=== PATIENT | male | born 1955 | race African-American/Black ===

== ENCOUNTER 2021-10-02 07:18 | Inpatient (IN) ==
--- NOTE | 2021-10-02 07:41 | DR.SOBA ---
HPI Time Seen Time Seen by Provider: 10/02/21 07:39 Primary Care Physician Primary Care Physician: KRISTEN WINSTON Complaints Chief Complaint Doctors Comments: 66 y/o male presents for evaluation. Having shortness of breath over the past week. Worse with laying down. Has a dry cough. Having chest pain across the anterior chest, off/on. Denies swelling of the legs. No h/o CAD, CHF, COPD. + smokes 12 PPD. Not around anyone with Covid he knows about. Chief Complaint:: PT C/O 1 WEEK HISTORY OF SHORTNESS OF BREATH WITH INTERMITTENT NONPRODUCTIVE COUGH. DENIES FEVER. COVID-19 Coronavirus risk:travel/contact w/high risk person: No Has patient experienced Coronavirus symptoms: No Reviewed Nurses Notes Reviewed: Yes Source History Provided: Patient Mode of Arrival Mode of Arrival: Ambulatory Timing Onset of Chief Complaint: 09/25/21 PMH PMH Past Medical History: Yes Past Medical History: Arthritis, Asthma and Hypertension Past Surgical History: Yes Surgical History: Ortho Surgery Past Surgical History Comment: RIGHT WRIST SURGERY, RIGHT HIP SURGERY Family History History of Family Medical Conditions: No Social History Does patient currently use any type of tobacco product: Yes Have you used tobacco products in the last 12 months: Yes Type of Tobacco Use: Cigarettes Does any household member use tobacco: No Alcohol Use: DAILY Do you use any recreational Drugs:: No Lives With: Family Lives Where: Home Travel Risk Coronavirus risk:travel/contact w/high risk person: No Has patient experienced Coronavirus symptoms: No Infectious screening In the last 2 months have you had wt loss of >10#?: NO Have you had fever, night sweats or hemotysis?: No Have you traveled outside the country in the last 6 months?: No Isolation: Standard ROS Review of Systems Constitutional: No Symptoms Reported Eyes: No Symptoms Reported ENTM: No Symptoms Reported Respiratoy: Non-Productive Cough and Short of Breath Cardiovascular: Chest Pain Gastrointestinal/Abdominal: No Symptoms Reported Genitourinary: No Symptoms Reported Neurological: No Symptoms Reported Musculoskeletal: No Symptoms Reported Integumentary: No Symptoms Reported Hematologic/Lymphatic: No Symptoms Reported All Other Systems: Reviewed and Negative PE Vital Signs Vitals: Temperature 98.0 F Pulse Rate 60 Respiratory Rate 18 Blood Pressure [Left Arm] 159/88 Blood Pressure 138/74 O2 Sat by Pulse Oximetry 100 General General Appearance: Alert and In No Apparent Distress Eyes Eye exam: PERRL and EOMI ENT ENT Exam: Normal Oropharynx and Mucous Membranes Moist Neck Neck Exam: Normal Inspection and Full ROM Respiratory Respiratory Exam: Normal Lung Sounds Bilat; negative Accessory Muscle Use or Respiratory Distress Cardiovascular Cardiovascular Exam: Regular Rate, Normal Rhythm and Normal Heart Sounds Abdominal Exam Abdominal Exam: Soft; negative Tenderness Extremities Extremities Exam: Normal Inspection and Full ROM; negative Edema Neurologic Neurological Exam: Alert, Oriented X3 and CN II-XII Intact; negative Motor Sensory Deficit MDM Differential Diagnosis Differential Diagnosis: CHF, COPD, Mycardial Infarction, Pneumonia and Other (Covid) COURSE Treatment Treatment: 66 y/o male with cough, orthopnea, chest pain x past week. W/u initiated. Pt will be signed over to my relief MD, Dr Coburn. EKG - normal. CXR - + significant R sided pneumothorax. Will consult surgery, Dr Nolasco, for chest tube. 0810 - pt informed of pneumothorax, told he needs a chest tube. PT states he had one, didn't work ...!! Was at [facility] past 2 days, lifts shirt, has a fresh wound, remnants of adhesive tape. States he left there to get some different help. ROR Labs Reviewed Result Diagrams: 10/03/21 05:14 10/03/21 05:14 Laboratory: WBC 3.9 X10^3/uL (3.6-10.0) 10/02/21 07:55 RBC 4.12 X10^6/uL (4.7-6.0) L 10/02/21 07:55 Hgb 11.9 g/dL (13.5-18.0) L 10/02/21 07:55 Hct 35.5 % (42.0-54.0) L 10/02/21 07:55 MCV 86.2 fL (80.0-100.0) 10/02/21 07:55 MCH 28.9 pg (27.0-34.0) 10/02/21 07:55 MCHC 33.5 g/dL (33.0-35.0) 10/02/21 07:55 RDW 13.4 % (11.6-16.5) 10/02/21 07:55 Plt Count 225 X10^3/uL (150.0-450.0) 10/02/21 07:55 MPV 8.4 fL (7.4-11.0) 10/02/21 07:55 Neut % (Auto) 60.9 % (42.0-75.0) 10/02/21 07:55 Lymph % (Auto) 18.8 % (21.0-51.0) L 10/02/21 07:55 [place] % (Auto) 12.8 % (0.0-13.0) 10/02/21 07:55 Eos % (Auto) 6.5 % (0.9-2.9) H 10/02/21 07:55 Baso % (Auto) 1.0 % (0.2-1.0) 10/02/21 07:55 Neut # (Auto) 2.4 x10^3/uL (2.2-4.8) 10/02/21 07:55 Lymph # (Auto) 0.7 X10^3/uL (1.3-2.9) L 10/02/21 07:55 [place] # (Auto) 0.5 x10^3/uL (0.3-0.8) 10/02/21 07:55 Eos # (Auto) 0.3 x10^3/uL (0.0-0.2) H 10/02/21 07:55 Baso # (Auto) 0.0 X10^3/uL (0.0-0.1) 10/02/21 07:55 Absolute Nucleated RBC 0.1 /100WBC 10/02/21 07:55 Sodium 141 mmol/L (136-145) 10/02/21 07:55 Corrected Sodium TNP 10/02/21 07:55 Potassium 4.2 mmol/L (3.5-5.1) 10/02/21 07:55 Chloride 103 mmol/L (98-107) 10/02/21 07:55 Carbon Dioxide 29.5 mmol/L (21-32) 10/02/21 07:55 BUN 13 mg/dL (7-18) 10/02/21 07:55 Creatinine 1.20 mg/dL (0.70-1.30) 10/02/21 07:55 Est GFR (MDRD) Af Amer > 60 (>60) 10/02/21 07:55 Est GFR (MDRD) Non-Af > 60 (>60) 10/02/21 07:55 Glucose 94 mg/dL (65-99) 10/02/21 07:55 Calcium 8.2 mg/dL (8.5-10.1) L 10/02/21 07:55 Corrected Calcium 8.9 mg/dL (8.5-10.1) 10/02/21 07:55 Total Bilirubin 0.30 mg/dL (0.2-1.0) 10/02/21 07:55 AST 18 Units/L (15-37) 10/02/21 07:55 ALT 15 Units/L (12-78) 10/02/21 07:55 Alkaline Phosphatase 62 Units/L (46-116) 10/02/21 07:55 Creatine Kinase 173 Units/L (39-308) 10/02/21 07:55 Troponin I High Sens 20.6 ng/L (4.0-60.0) 10/02/21 07:55 B-Natriuretic Peptide 124 pg/mL (0-79) H 10/02/21 07:55 Total Protein 7.4 g/dL (6.4-8.2) 10/02/21 07:55 Albumin 3.1 g/dL (3.4-5.0) L 10/02/21 07:55 Globulin 4.3 g/dL (2.5-4.5) 10/02/21 07:55 Albumin/Globulin Ratio 0.7 Ratio (1.1-2.1) L 10/02/21 07:55 SARS CoV-2 RNA Rapid MIGUEL Negative (NEGATIVE) 10/02/21 07:45 EKG Rate: 77 [place]: Normal Rhythm: NSR Block: None Hypertrophy: None ST: Normal Opioid Opioid Risk Tool Age ([place] box if 16-45): No History of Preadolescent Sexual Abuse: No Total: 0 Total Score Risk Category: Low Risk Copyright: Laron SANCHEZ predicting aberrant behaviors Discharge Plan Diagnosis Discharge Problem: Tension pneumothorax, Respiratory distress Discharge Plan Patient Disposition: ADMITTED INPATIENT Condition: Stable Discharge Comment: T
[2021-10-02 08:18] LABS: EOSINOPHILS # (AUTO) 0.3 x10^3/uL (0.0-0.2); EOSINOPHILS % (AUTO) 6.5 % (0.9-2.9); HEMATOCRIT 35.5 % (42.0-54.0); HEMOGLOBIN 11.9 g/dL (13.5-18.0); LYMPHOCYTES # (AUTO) 0.7 X10^3/uL (1.3-2.9); LYMPHOCYTES % (AUTO) 18.8 % (21.0-51.0); MEAN CORPUSCULAR HEMOGLOBIN 28.9 pg (27.0-34.0); MEAN CORPUSCULAR HGB CONC 33.5 g/dL (33.0-35.0); MEAN CORPUSCULAR VOLUME 86.2 fL (80.0-100.0); MEAN PLATELET VOLUME 8.4 fL (7.4-11.0); MONOCYTES # (AUTO) 0.5 x10^3/uL (0.3-0.8); MONOCYTES % (AUTO) 12.8 % (0.0-13.0); NEUTROPHILS # (AUTO) 2.4 x10^3/uL (2.2-4.8); NEUTROPHILS % (AUTO) 60.9 % (42.0-75.0); RED BLOOD COUNT 4.12 X10^6/uL (4.7-6.0); RED CELL DISTRIBUTION WIDTH 13.4 % (11.6-16.5); WHITE BLOOD COUNT 3.9 X10^3/uL (3.6-10.0)
[2021-10-02 08:33] LABS: ALANINE AMINOTRANSFERASE 15 Units/L (12-78); ALBUMIN 3.1 g/dL (3.4-5.0); ALKALINE PHOSPHATASE 62 Units/L (46-116); ASPARTATE AMINO TRANSFERASE 18 Units/L (15-37); BLOOD UREA NITROGEN 13 mg/dL (7-18); CALCIUM 8.2 mg/dL (8.5-10.1); CARBON DIOXIDE 29.5 mmol/L (21-32); CHLORIDE 103 mmol/L (98-107); COR CA(FOR HYPOALB) 8.9 mg/dL (8.5-10.1); CREATINE KINASE 173 Units/L (39-308); SODIUM 141 mmol/L (136-145); TOTAL PROTEIN 7.4 g/dL (6.4-8.2); eGFR NON BLACK RACES > 60 (>60)
--- NOTE | 2021-10-02 08:33 | RAD ---
HISTORYShortness of breath x1 weekSTUDYChest AP portableCOMPARISONNoneFINDINGSThere is a very large right-sided pneumothorax likely greater than 70 percent. There is shift of heart mediastinal structures to the left indicative of tension. The left lung is clear. Bony thorax is unremarkable.IMPRESSIONLarge right-sided tension pneumothoraxFindings were given to Dr. Coburn by ut 10/02/2021 8:31 a.m.Electronically signed by: MAGGI FRANCIS (Oct 02, 2021 08:31:20)
[2021-10-02] MEDS ORDERED: STERILE WATER IRRIGATION IR ONE (08:37)
[2021-10-02] MEDS ORDERED: DILAUDID INJ ONE (08:49)
[2021-10-02] MEDS ORDERED: DILAUDID INJ IVP ONE (08:52)
--- NOTE | 2021-10-02 09:24 | RAD ---
HISTORYPNEUMOTHORAX ARTHRITIS, ASTHMA HTN SX: ORTHOSTUDYCHEST, 1 [id number]/2022FINDINGSThe trachea is midline. Normal heart size. Right-sided chest tube has been place, there has been expansion of the right lung. No pleural line is seen to suggest residual apical or lateral pneumothorax. Mild increase lucency in the right base. The left lung is clear.IMPRESSIONInterval placement of right-sided chest tube with expansion of the lung. No dominant pleural line to suggest residual pneumothorax. Question small lucency in the right base could represent a deep sulcus sign and trace pneumothorax at the level.Electronically signed by: Hope Vanegas (Oct 02, 2021 09:21:28)
--- NOTE | 2021-10-02 09:33 | DR.SOBA ---
HPI Time Seen Time Seen by Provider: 10/02/21 07:39 Primary Care Physician Primary Care Physician: KRISTEN WINSTON Complaints Chief Complaint:: PT C/O 1 WEEK HISTORY OF SHORTNESS OF BREATH WITH INTERMITTENT NONPRODUCTIVE COUGH. DENIES FEVER. COVID-19 Coronavirus risk:travel/contact w/high risk person: No Has patient experienced Coronavirus symptoms: No Source History Provided: Patient Mode of Arrival Mode of Arrival: Ambulatory Timing Onset of Chief Complaint: 09/25/21 PMH PMH Past Medical History: Yes Past Medical History: Arthritis, Asthma and Hypertension Past Surgical History: Yes Surgical History: Ortho Surgery Past Surgical History Comment: RIGHT WRIST SURGERY, RIGHT HIP SURGERY Family History History of Family Medical Conditions: No Social History Does patient currently use any type of tobacco product: Yes Have you used tobacco products in the last 12 months: Yes Type of Tobacco Use: Cigarettes Does any household member use tobacco: No Alcohol Use: DAILY Do you use any recreational Drugs:: No Lives With: Family Lives Where: Home Travel Risk Coronavirus risk:travel/contact w/high risk person: No Has patient experienced Coronavirus symptoms: No Infectious screening In the last 2 months have you had wt loss of >10#?: NO Have you had fever, night sweats or hemotysis?: No Have you traveled outside the country in the last 6 months?: No Isolation: Standard PE Vital Signs Vitals: Temperature 98.0 F Pulse Rate 61 Respiratory Rate 20 Blood Pressure [Left Arm] 159/88 Blood Pressure 138/74 O2 Sat by Pulse Oximetry 100 ROR Labs Reviewed Result Diagrams: 10/02/21 07:55 10/02/21 07:55 Laboratory: WBC 3.9 X10^3/uL (3.6-10.0) 10/02/21 07:55 RBC 4.12 X10^6/uL (4.7-6.0) L 10/02/21 07:55 Hgb 11.9 g/dL (13.5-18.0) L 10/02/21 07:55 Hct 35.5 % (42.0-54.0) L 10/02/21 07:55 MCV 86.2 fL (80.0-100.0) 10/02/21 07:55 MCH 28.9 pg (27.0-34.0) 10/02/21 07:55 MCHC 33.5 g/dL (33.0-35.0) 10/02/21 07:55 RDW 13.4 % (11.6-16.5) 10/02/21 07:55 Plt Count 225 X10^3/uL (150.0-450.0) 10/02/21 07:55 MPV 8.4 fL (7.4-11.0) 10/02/21 07:55 Neut % (Auto) 60.9 % (42.0-75.0) 10/02/21 07:55 Lymph % (Auto) 18.8 % (21.0-51.0) L 10/02/21 07:55 [place] % (Auto) 12.8 % (0.0-13.0) 10/02/21 07:55 Eos % (Auto) 6.5 % (0.9-2.9) H 10/02/21 07:55 Baso % (Auto) 1.0 % (0.2-1.0) 10/02/21 07:55 Neut # (Auto) 2.4 x10^3/uL (2.2-4.8) 10/02/21 07:55 Lymph # (Auto) 0.7 X10^3/uL (1.3-2.9) L 10/02/21 07:55 [place] # (Auto) 0.5 x10^3/uL (0.3-0.8) 10/02/21 07:55 Eos # (Auto) 0.3 x10^3/uL (0.0-0.2) H 10/02/21 07:55 Baso # (Auto) 0.0 X10^3/uL (0.0-0.1) 10/02/21 07:55 Absolute Nucleated RBC 0.1 /100WBC 10/02/21 07:55 Sodium 141 mmol/L (136-145) 10/02/21 07:55 Corrected Sodium TNP 10/02/21 07:55 Potassium 4.2 mmol/L (3.5-5.1) 10/02/21 07:55 Chloride 103 mmol/L (98-107) 10/02/21 07:55 Carbon Dioxide 29.5 mmol/L (21-32) 10/02/21 07:55 BUN 13 mg/dL (7-18) 10/02/21 07:55 Creatinine 1.20 mg/dL (0.70-1.30) 10/02/21 07:55 Est GFR (MDRD) Af Amer > 60 (>60) 10/02/21 07:55 Est GFR (MDRD) Non-Af > 60 (>60) 10/02/21 07:55 Glucose 94 mg/dL (65-99) 10/02/21 07:55 Calcium 8.2 mg/dL (8.5-10.1) L 10/02/21 07:55 Corrected Calcium 8.9 mg/dL (8.5-10.1) 10/02/21 07:55 Total Bilirubin 0.30 mg/dL (0.2-1.0) 10/02/21 07:55 AST 18 Units/L (15-37) 10/02/21 07:55 ALT 15 Units/L (12-78) 10/02/21 07:55 Alkaline Phosphatase 62 Units/L (46-116) 10/02/21 07:55 Creatine Kinase 173 Units/L (39-308) 10/02/21 07:55 Troponin I High Sens 20.6 ng/L (4.0-60.0) 10/02/21 07:55 B-Natriuretic Peptide 124 pg/mL (0-79) H 10/02/21 07:55 Total Protein 7.4 g/dL (6.4-8.2) 10/02/21 07:55 Albumin 3.1 g/dL (3.4-5.0) L 10/02/21 07:55 Globulin 4.3 g/dL (2.5-4.5) 10/02/21 07:55 Albumin/Globulin Ratio 0.7 Ratio (1.1-2.1) L 10/02/21 07:55 SARS CoV-2 RNA Rapid MIGUEL Negative (NEGATIVE) 10/02/21 07:45 Opioid Opioid Risk Tool Age ([place] box if 16-45): No History of Preadolescent Sexual Abuse: No Total: 0 Total Score Risk Category: Low Risk Copyright: Laron SANCHEZ predicting aberrant behaviors Discharge Plan Discharge Plan Patient Disposition: 01 HOME, SELF-CARE Condition: Stable Prescriptions: No Action losartan 50 mg tablet 100 mg PO QDAY furosemide 40 mg tablet 40 mg PO BID atorvastatin 40 mg tablet 40 mg PO QPM carvedilol 12.5 mg tablet 12.5 mg PO BID allopurinol 100 mg tablet 100 mg PO QDAY spironolactone 25 mg tablet 25 mg PO QDAY nitroglycerin 0.4 mg tablet, sublingual 0.4 mg sublingual PRN PRN Label Comments: TAKE 1 TABLET BY MOUTH AT ONSET OF CHEST PAIN. MAY REPEAT IN 5 MINUTES. MAX OF 3 DOSES. SEEK MEDICAL HELP. pregabalin 75 mg capsule 75 mg PO BID Health Concerns: Post Hospitalization: new medications and changes needed to prevent readmission or further decline. Pt educated and given instructions on all concerns. Plan of Treatment: Continue with present treatment and follow up plan. Pt is to keep follow up appointment as instructed and take medications as ordered. Orders to Discharge Patient Discharge Orders: Transfer (Routine); Ordered 10/02/21 Ordered By: EDGARDO FULLER Follow ups/Referrals Follow ups/Referrals: EWELINA WINSTON [Primary Care Provider] - 3 days Instructions Stand Alone Forms: [facility], [facility], Patient Portal, Social Distancing
[2021-10-02] MEDS ORDERED: PROVENTIL NEB TX 0.083% 2.5MG/ 3ML NEB PRN (12:20)
[2021-10-02] MEDS ORDERED: NS 1/2 1,000 ML IV 1,000 ML IV ONE (14:00)
[2021-10-02] MEDS ORDERED: ANCEF VIAL 1 GRAM IVP SCH (14:00)
[2021-10-02] MEDS ORDERED: NS 100 ML IV 100 ML ONE (14:03)
[2021-10-02] MEDS: NS 1/2 1,000 ML IV 1,000 ML IV SCH (14:33)
[2021-10-02] MEDS ORDERED: ZOFRAN INJ 4 MG VIAL IVP PRN (14:36)
[2021-10-02] MEDS: DILAUDID INJ IVP PRN ×2 (15:00→23:21)
[2021-10-02] MEDS: ANCEF VIAL 1 GRAM 1 G in NS 100 ML IV 100 ML IV SCH (21:48)
[2021-10-03] MEDS: NS 1/2 1,000 ML IV 1,000 ML IV SCH ×2 (00:58→17:10)
[2021-10-03] MEDS: ANCEF VIAL 1 GRAM 1 G in NS 100 ML IV 100 ML IV SCH ×3 (05:10→21:16)
[2021-10-03 05:30] LABS: BASOPHILS % (AUTO) 0.8 % (0.2-1.0); EOSINOPHILS # (AUTO) 0.2 x10^3/uL (0.0-0.2); EOSINOPHILS % (AUTO) 4.1 % (0.9-2.9); HEMATOCRIT 33.3 % (42.0-54.0); LYMPHOCYTES # (AUTO) 0.8 X10^3/uL (1.3-2.9); LYMPHOCYTES % (AUTO) 15.7 % (21.0-51.0); MEAN CORPUSCULAR HEMOGLOBIN 28.5 pg (27.0-34.0); MEAN CORPUSCULAR VOLUME 86.2 fL (80.0-100.0); MEAN PLATELET VOLUME 8.5 fL (7.4-11.0); MONOCYTES # (AUTO) 0.4 x10^3/uL (0.3-0.8); MONOCYTES % (AUTO) 7.2 % (0.0-13.0); NEUTROPHILS # (AUTO) 3.5 x10^3/uL (2.2-4.8); NEUTROPHILS % (AUTO) 72.2 % (42.0-75.0); RED BLOOD COUNT 3.86 X10^6/uL (4.7-6.0); RED CELL DISTRIBUTION WIDTH 13.4 % (11.6-16.5); WHITE BLOOD COUNT 4.9 X10^3/uL (3.6-10.0)
[2021-10-03 05:38] LABS: ALANINE AMINOTRANSFERASE 13 Units/L (12-78); ALBUMIN 2.7 g/dL (3.4-5.0); ALKALINE PHOSPHATASE 59 Units/L (46-116); ASPARTATE AMINO TRANSFERASE 15 Units/L (15-37); BLOOD UREA NITROGEN 9 mg/dL (7-18); CALCIUM 8.3 mg/dL (8.5-10.1); CARBON DIOXIDE 29.9 mmol/L (21-32); CHLORIDE 103 mmol/L (98-107); COR CA(FOR HYPOALB) 9.3 mg/dL (8.5-10.1); CREATININE 1.09 mg/dL (0.70-1.30); SODIUM 140 mmol/L (136-145); TOTAL PROTEIN 6.7 g/dL (6.4-8.2); eGFR NON BLACK RACES > 60 (>60)
--- NOTE | 2021-10-03 07:25 | RAD ---
HISTORYShortness of breath, follow-up pneumothoraxSTUDYChest AP [id number]/2022FINDINGSHear t size is normal. [place] are normal. Lungs are free of acute infiltrates. There is subsegmental atelectasis at the right lung base. There is a right chest tube in place with its tip in the apical right hemithorax. No definite residual or recurrent pneumothorax is identified. Bony thorax is unremarkable.IMPRESSIONNo evidence for residual or recurrent right pneumothoraxNo acute infiltratesSubsegmental atelectasis right lung baseElectronically signed by: MAGGI FRANCIS (Oct 03, 2021 07:23:40)
[2021-10-03] MEDS ORDERED: NITROSTAT SL PRN (10:21)
--- NOTE | 2021-10-03 11:13 | DR.H&P ---
H&P - History & Physical for Day of: H&P Date: 10/02/21 - Chief Complaint Chief Complaint: SOB, COUGH - History of Present Illness History of Present Illness: IS A 66 YEAR OLD PATIENT OF KRISTEN LAN. HE PRESENTED TO THE ER WITH COMPLAINTS OF SHORTNESS OF BREATH AND INTERMITTENT, NONPRODUCTIVE COUGH. SYMPTOMS APPARENTLY STARTED ONE WEEK AGO. HE REPORTS THAT SYMPTOMS ARE WORSE WHEN LYING DOWN. HE DOES ADMIT TO INTERMITTENT CHEST PAIN ACROSS THE ANTERIOR CHEST. PAIN IS DESCRIBED DULL. HE DENIES EXPOSURE TO COVID, FEVER, OR SWELLING. HE DOES ADMIT TO RECENT HOSPITALIZATION AT [facility] IN [place], [place]. HE REPORTS THAT HE HAD A CHEST TUBE WHILE IN THE HOSPITAL DUE TO PNEUMOTHORAX. HIS PMH INCLUDES ARTHRITIS, ASTHRMA, HTN, CHF, WRIST SURGERY, RIGHT HIP SURGERY. ON ARRIVAL, VITALS WERE: 98.0-97-20-96%-137/89. LABS WERE OBTAINED. WBC 3.9, RBC 4.12, HGB 11.9, HCT 35.5, SODIUM 141, POTASSIUM 4.2, BUN 13, CREATININE 1.20, GLUCOSE 94, CALCIUM 8.2, TOTAL BILI 0.30, AST 18, ALT 15, ALK PHOS 62, CREATINE KINASE 173, TROPONIN 20.6, BNP 124, TOTAL PROTEIN 7.4, ALBUMIN 3.1. COVID-19 NEGATIVE. A CHEST XRAY WAS OBTAINED AND REVEALED: There is a very large right-sided pneumothorax likely greater than 70 percent. There is shift of heart mediastinal structures to the left indicative of tension. The left lung is clear. Bony thorax is unremarkable. EKG REVEALED: NORMAL SINUS RHYTHM WITH HR 77. WAS CONSULTED FOR PLACEMENT OF CHEST TUBE. PRIOR TO PLACEMENT, PATIENTS OXYGEN SATURATIONS DECREASED TO 78%. AFTER PLACEMENT, SATURATIONS INCREASED TO 100%. IN THE ER, HE WAS GIVEN DILAUDID 1MG IV X 1, ANCEF 1G IV X 1. HE WAS ADMITTED TO THE HOSPITAL INPATIENT STATUS FOR FURTHER TREATMENT OF RIGHT SIDED TENSION PNEUMOTHORAX AND RESPIRATORY DISTRESS. HE WAS STARTED ON 1/2NS AT KVO, ANCEF 1G IV Q8H, PRO VENTIL NEBS Q2H PRN, DILAUDID 1-2MG IV Q4H PRN PAIN, AND ZOFRAN 4MG IV Q8H PRN. HIS HOME MEDICATIONS OF ALLOPURINOL, LIPITOR, LASIX, COZAAR, NITROSTAT, LYRICA, AND SPIRONOLACTONE WERE RESUMED. OTHERWISE, WE PLAN TO FOLLOW-UP WITH AM LABS AND CHEST XRAY AND CONTINUE TO MONITOR. 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 TIME SPENT ON CLINICAL ASSESSMENT, REVIWING LABS AND IMAGING, DECISION MAKING, AND DOCUMENTATION GREATER THAN 75 MINUTES. - Past Medical History Past Medical History: Arthritis, Asthma, CHF, Hypertension - Past Surgical History Surgical History: Ortho Surgery, Other - Family History Family Medical History: Diabetes Mellitus, Cancer, ID, Hypertension - Social History Does patient currently use any type of tobacco product: Yes Have you used tobacco products in the last 12 months: Yes Type of Tobacco Use: Cigarettes Does any household member use tobacco: No Alcohol Use: DAILY Drug Use: None - Medications Home Medications: No Known Drug Allergies Allergy (Verified 04/28/19 08:16) CONTINUE taking the following medications allopurinol 100 mg tablet 100 mg PO QDAY 10/02/21 [History] atorvastatin 40 mg tablet 40 mg PO QPM 10/02/21 [History] carvedilol 12.5 mg tablet 12.5 mg PO BID 10/02/21 [History] furosemide 40 mg tablet 40 mg PO BID 10/02/21 [History] losartan 50 mg tablet 100 mg PO QDAY 10/02/21 [History] nitroglycerin 0.4 mg sublingual tablet 0.4 mg sublingual PRN PRN 10/02/21 [History] pregabalin 75 mg capsule 75 mg PO BID 10/02/21 [History] spironolactone 25 mg tablet 25 mg PO QDAY 10/02/21 [History] - Review of Systems Constitutional: Weakness Eyes: No Symptoms Reported ENT: No Symptoms Reported Respiratory: Cough, Shortness of Breath, SOB with Excertion Cardiovascular: Chest Pain Gastrointestinal: No Symptoms Reported Genitourinary: No Symptoms Reported Musculoskeletal: No Symptoms Reported Skin: No Symptoms Reported Neurological: Weakness - Physical Exam Vital Signs: Temperature 98.3 F Pulse Rate [Left Apical] 67 Pulse Rate 58 Respiratory Rate 23 Blood Pressure [Left Arm] 165/86 Blood Pressure 138/74 O2 Sat by Pulse Oximetry 100 Oriented: Normal Eyes: Normal Ear: Normal Nose: Normal Throat: Normal Respiratory: Diminished Throughout Cardiovascular: Normal : Normal Auscultation: Bowel Sounds: Normal Palpation: Normal Tenderness: Normal Skin: Normal Musculoskeletal: Normal Psychiatric: Normal Mood Description: Calm Affect: Normal Speech Pattern: Clear - Assessment/Plan (1) Tension pneumothorax Status: Acute Plan: ADMIT, CHEST TUBE, 1/2NS AT KVO, ANCEF 1G IV Q8H, PROVENTIL NEBS Q2H PRN, DILAUDID 1-2MG IV Q4H PRN PAIN, AND ZOFRAN 4MG IV Q8H PRN. RESUME HOME MEDS. MONITOR LABS AND CHEST XRAY (2) Respiratory distress Status: Acute (3) CHF (congestive heart failure) Qualifiers: Heart failure chronicity: acute on chronic Status: Chronic (4) HTN (hypertension) Qualifiers: Hypertension type: primary hypertension Qualified Code(s): I10 - Essential (primary) hypertension Status: Chronic - Allergies Allergies/Adverse Reactions: Allergies Allergy/AdvReac Type Severity Reaction Status Date / Time No Known Drug Allergies Allergy Verified 04/28/19 08:16
[2021-10-03] MEDS: COZAAR PO SCH (12:40)
[2021-10-03] MEDS: LYRICA CAP 75 mg PO SCH ×2 (12:40→20:01)
[2021-10-03] MEDS: ALDACTONE TAB 25 MG PO SCH (12:40)
[2021-10-03] MEDS: LASIX PO SCH ×2 (12:40→20:01)
[2021-10-03] MEDS: ZYLOPRIM PO SCH (12:41)
--- NOTE | 2021-10-03 13:25 | PCM.PROG ---
Progress Note - Progress Note for Day of Date of Exam: 10/03/21 - Subjective Subjective: IS CURRENTLY INPATIENT STATUS FOR TREATMENT OF A TENSION PNEUMOTHORAX AND RESPIRATORY DISTRESS. HE HAS A PMH OF CHF AND HTN. TODAY, HE IS ALERT AND ORIENTED, LYING IN BED ON MORNING ROUNDS. HE REPORTS SLIGHT DISCOMFORT TO AREA OF CHEST TUBE INSERTION AND GENERALIZED ACHING, BUT DENIES OTHER COMPLAINTS. ON EXAMINATION, HEART IS REGULAR IN RATE AND RHYTHM. BILATERAL LUNGS NOTED WITH DIMINISHED LUNG SOUNDS THROUGHOUT. CHEST TUBE NOTED TO RIGHT SIDE CHEST WALL WITH BLOODY DRAINAGE INTO CONTAINER. ABDOMEN IS ROUND, SOFT, AND NON- TENDER WITH NORMAL BOWEL SOUNDS NOTED IN ALL QUADRANTS. HIS VITLAS THIS MORNING ARE: 98.3-63-20-100%-164/89. LABS WERE OBTAINED. WBC 4.9, RBC 3.86, HGB 11.0, HCT 33.3, SODIUM 140, POTASSIUM 3.9, CHLORIDE 103, BUN 9, CREATININE 1.09, GLUCOSE 109, CALCIUM 8.3, AST 15, ALT 13, ALK PHOS 59, TOTAL PROTEIN 6.7, ALBUMIN 2.7. CHEST XRAY REPEATED AND REVEALED: No evidence for residual or recurrent right pneumothorax. No acute infiltrates. Subsegmental atelectasis right lung base. HE IS CURRENTLY RECEIVING 1/2NS AT KVO, ANCEF 1G IV Q8H, PROVENTIL NEBS Q2H PRN, DILAUDID 1-2MG IV Q4H PRN PAIN, AND ZOFRAN 4MG IV Q8H PRN. HIS HOME MEDICATIONS OF ALLOPURINOL, LIPITOR, LASIX, COZAAR, NITROSTAT, LYRICA, AND SPIRONOLACTONE WERE RESUMED. WE WILL CONTINUE WITH CURRENT PLAN OF CARE TODAY AND RESUME HIS HOME MEDICATIONS. OTHERWISE, WE WILL FOLLOW-UP WITH AM LABS AND CONTINUE TO MONITOR. TIME SPENT ON CLINICAL ASSESSMENT, REVIWING LABS AND IMAGING, DECISION MAKING, AND DOCUMENTATION GREATER THAN 45 MINUTES. - Past Medical Family Social History Past Med/Fam/Surg Hx: No changes since H&P Allergies: Allergies No Known Drug Allergies Allergy (Verified 04/28/19 08:16) - Review of Systems ROS: No change since H&P - Vital Signs and I&O's Vital Signs: Temperature 98.3 F Pulse Rate [Left Apical] 69 Pulse Rate 85 Respiratory Rate 22 Blood Pressure [Left Arm] 155/85 Blood Pressure 155/85 O2 Sat by Pulse Oximetry 100 Intake and Output: Intake & Output 10/01/21 10/02/21 10/03/21 10/04/21 11:59 11:59 11:59 11:59 Intake Total 1052 / 1052 Output Total 978 / 978 Balance / - Physical Exam Oriented: Normal Eyes: Normal Ear: Normal Nose: Normal Throat: Normal Respiratory: Generalized, Diminished Cardiovascular: Normal : Normal Auscultation: Bowel Sounds: Normal Palpation: Normal Tenderness: Normal Skin: Normal Musculoskeletal: Normal Psychiatric: Normal Mood Description: Calm Affect: Normal Speech Pattern: Clear - Laboratory and Diagnostics Result Diagrams: 10/03/21 05:14 10/03/21 05:14 Labs: Laboratory WBC 4.9 X10^3/uL (3.6-10.0) 10/03/21 05:14 RBC 3.86 X10^6/uL (4.7-6.0) L 10/03/21 05:14 Hgb 11.0 g/dL (13.5-18.0) L 10/03/21 05:14 Hct 33.3 % (42.0-54.0) L 10/03/21 05:14 MCV 86.2 fL (80.0-100.0) 10/03/21 05:14 MCH 28.5 pg (27.0-34.0) 10/03/21 05:14 MCHC 33.0 g/dL (33.0-35.0) 10/03/21 05:14 RDW 13.4 % (11.6-16.5) 10/03/21 05:14 Plt Count 221 X10^3/uL (150.0-450.0) 10/03/21 05:14 MPV 8.5 fL (7.4-11.0) 10/03/21 05:14 Neut % (Auto) 72.2 % (42.0-75.0) 10/03/21 05:14 Lymph % (Auto) 15.7 % (21.0-51.0) L 10/03/21 05:14 [place] % (Auto) 7.2 % (0.0-13.0) 10/03/21 05:14 Eos % (Auto) 4.1 % (0.9-2.9) H 10/03/21 05:14 Baso % (Auto) 0.8 % (0.2-1.0) 10/03/21 05:14 Neut # (Auto) 3.5 x10^3/uL (2.2-4.8) 10/03/21 05:14 Lymph # (Auto) 0.8 X10^3/uL (1.3-2.9) L 10/03/21 05:14 [place] # (Auto) 0.4 x10^3/uL (0.3-0.8) 10/03/21 05:14 Eos # (Auto) 0.2 x10^3/uL (0.0-0.2) 10/03/21 05:14 Baso # (Auto) 0.0 X10^3/uL (0.0-0.1) 10/03/21 05:14 Absolute Nucleated RBC 0.0 /100WBC 10/03/21 05:14 Sodium 140 mmol/L (136-145) 10/03/21 05:14 Corrected Sodium TNP 10/03/21 05:14 Potassium 3.9 mmol/L (3.5-5.1) 10/03/21 05:14 Chloride 103 mmol/L (98-107) 10/03/21 05:14 Carbon Dioxide 29.9 mmol/L (21-32) 10/03/21 05:14 BUN 9 mg/dL (7-18) 10/03/21 05:14 Creatinine 1.09 mg/dL (0.70-1.30) 10/03/21 05:14 Est GFR (MDRD) Af Amer > 60 (>60) 10/03/21 05:14 Est GFR (MDRD) Non-Af > 60 (>60) 10/03/21 05:14 Glucose 109 mg/dL (65-99) H 10/03/21 05:14 Calcium 8.3 mg/dL (8.5-10.1) L 10/03/21 05:14 Corrected Calcium 9.3 mg/dL (8.5-10.1) 10/03/21 05:14 Total Bilirubin 0.20 mg/dL (0.2-1.0) 10/03/21 05:14 AST 15 Units/L (15-37) 10/03/21 05:14 ALT 13 Units/L (12-78) 10/03/21 05:14 Alkaline Phosphatase 59 Units/L (46-116) 10/03/21 05:14 Creatine Kinase 173 Units/L (39-308) 10/02/21 07:55 Troponin I High Sens 20.6 ng/L (4.0-60.0) 10/02/21 07:55 B-Natriuretic Peptide 124 pg/mL (0-79) H 10/02/21 07:55 Total Protein 6.7 g/dL (6.4-8.2) 10/03/21 05:14 Albumin 2.7 g/dL (3.4-5.0) L 10/03/21 05:14 Globulin 4.0 g/dL (2.5-4.5) 10/03/21 05:14 Albumin/Globulin Ratio 0.7 Ratio (1.1-2.1) L 10/03/21 05:14 SARS CoV-2 RNA Rapid MIGUEL Negative (NEGATIVE) 10/02/21 07:45 - Plan (1) Tension pneumothorax Status: Acute Plan: CHEST TUBE, 1/2NS AT KVO, ANCEF 1G IV Q8H, PROVENTIL NEBS Q2H PRN, DILAUDID 1-2MG IV Q4H PRN PAIN, AND ZOFRAN 4MG IV Q8H PRN. RESUME HOME MEDS. MONITOR LABS AND CHEST XRAY (2) Respiratory distress Status: Acute (3) CHF (congestive heart failure) Status: Chronic Qualifiers: Heart failure chronicity: acute on chronic (4) HTN (hypertension) Status: Chronic Qualifiers: Hypertension type: primary hypertension Qualified Code(s): I10 - Essential (primary) hypertension
--- NOTE | 2021-10-03 14:07 | DR.PROGNOT ---
Hospital Progress Notes - Progress Note for Day of: Progress Note Date: 10/03/21 - Chief Complaint Chief Complaint: comfortable . and stable VS .. repeated chest X ray showed expanded RT lung without residual pneumothorax .. - Past Medical Family Social History Past Med/Fam/Surg Hx: No changes since H&P Allergies: Allergies No Known Drug Allergies Allergy (Verified 04/28/19 08:16) - Review Of Systems ROS: No change since H&P - Vital Signs Vital Signs: Temperature 98.3 F Pulse Rate [Left Apical] 69 Pulse Rate 75 Respiratory Rate 19 Blood Pressure [Left Arm] 155/85 Blood Pressure 176/81 O2 Sat by Pulse Oximetry 100 - Physical Exam Oriented: Normal Eyes: Normal Ear: Normal Nose: Normal Throat: Normal Respiratory: Generalized, Diminished Cardiovascular: Normal : Normal GI:Auscultation: Normal GI:Palpation: Normal GI: Tenderness: Normal Skin: Normal Musculoskeletal: Normal Psychiatric: Normal Mood Description: Calm Affect: Normal Speech Pattern: Clear - Laboratory and Diagnostics Result Diagrams: 10/03/21 05:14 10/03/21 05:14 Labs: Laboratory WBC 4.9 X10^3/uL (3.6-10.0) 10/03/21 05:14 RBC 3.86 X10^6/uL (4.7-6.0) L 10/03/21 05:14 Hgb 11.0 g/dL (13.5-18.0) L 10/03/21 05:14 Hct 33.3 % (42.0-54.0) L 10/03/21 05:14 MCV 86.2 fL (80.0-100.0) 10/03/21 05:14 MCH 28.5 pg (27.0-34.0) 10/03/21 05:14 MCHC 33.0 g/dL (33.0-35.0) 10/03/21 05:14 RDW 13.4 % (11.6-16.5) 10/03/21 05:14 Plt Count 221 X10^3/uL (150.0-450.0) 10/03/21 05:14 MPV 8.5 fL (7.4-11.0) 10/03/21 05:14 Neut % (Auto) 72.2 % (42.0-75.0) 10/03/21 05:14 Lymph % (Auto) 15.7 % (21.0-51.0) L 10/03/21 05:14 Drew % (Auto) 7.2 % (0.0-13.0) 10/03/21 05:14 Eos % (Auto) 4.1 % (0.9-2.9) H 10/03/21 05:14 Baso % (Auto) 0.8 % (0.2-1.0) 10/03/21 05:14 Neut # (Auto) 3.5 x10^3/uL (2.2-4.8) 10/03/21 05:14 Lymph # (Auto) 0.8 X10^3/uL (1.3-2.9) L 10/03/21 05:14 Drew # (Auto) 0.4 x10^3/uL (0.3-0.8) 10/03/21 05:14 Eos # (Auto) 0.2 x10^3/uL (0.0-0.2) 10/03/21 05:14 Baso # (Auto) 0.0 X10^3/uL (0.0-0.1) 10/03/21 05:14 Absolute Nucleated RBC 0.0 /100WBC 10/03/21 05:14 Sodium 140 mmol/L (136-145) 10/03/21 05:14 Corrected Sodium TNP 10/03/21 05:14 Potassium 3.9 mmol/L (3.5-5.1) 10/03/21 05:14 Chloride 103 mmol/L (98-107) 10/03/21 05:14 Carbon Dioxide 29.9 mmol/L (21-32) 10/03/21 05:14 BUN 9 mg/dL (7-18) 10/03/21 05:14 Creatinine 1.09 mg/dL (0.70-1.30) 10/03/21 05:14 Est GFR (MDRD) Af Amer > 60 (>60) 10/03/21 05:14 Est GFR (MDRD) Non-Af > 60 (>60) 10/03/21 05:14 Glucose 109 mg/dL (65-99) H 10/03/21 05:14 Calcium 8.3 mg/dL (8.5-10.1) L 10/03/21 05:14 Corrected Calcium 9.3 mg/dL (8.5-10.1) 10/03/21 05:14 Total Bilirubin 0.20 mg/dL (0.2-1.0) 10/03/21 05:14 AST 15 Units/L (15-37) 10/03/21 05:14 ALT 13 Units/L (12-78) 10/03/21 05:14 Alkaline Phosphatase 59 Units/L (46-116) 10/03/21 05:14 Creatine Kinase 173 Units/L (39-308) 10/02/21 07:55 Troponin I High Sens 20.6 ng/L (4.0-60.0) 10/02/21 07:55 B-Natriuretic Peptide 124 pg/mL (0-79) H 10/02/21 07:55 Total Protein 6.7 g/dL (6.4-8.2) 10/03/21 05:14 Albumin 2.7 g/dL (3.4-5.0) L 10/03/21 05:14 Globulin 4.0 g/dL (2.5-4.5) 10/03/21 05:14 Albumin/Globulin Ratio 0.7 Ratio (1.1-2.1) L 10/03/21 05:14 SARS CoV-2 RNA Rapid MIGUEL Negative (NEGATIVE) 10/02/21 07:45 - Assessment and Plan 1: spontaneous RT pneumothorax S/P insertion of chest tube . same plan . repeat X Ray in am .. - Problem Patient Problems: Patient Problems Tension pneumothorax (Acute) J93.0 Respiratory distress (Acute) R06.03 HTN (hypertension) (Chronic) I10 CHF (congestive heart failure) (Chronic) I50.9
[2021-10-03] MEDS: COREG TAB 12.5 MG PO SCH ×2 (17:09→20:01)
[2021-10-03] MEDS ORDERED: LIPITOR TAB 40 MG ONE (19:03)
[2021-10-03] MEDS ORDERED: NS 1/2 1,000 ML IV 1,000 ML IV ONE (19:04)
[2021-10-03] MEDS: LIPITOR TAB 40 MG PO SCH (20:01)
[2021-10-04] MEDS: DILAUDID INJ IVP PRN ×3 (00:42→20:40)
[2021-10-04] MEDS: NS 1/2 1,000 ML IV 1,000 ML IV SCH ×2 (05:13→20:30)
[2021-10-04] MEDS: ANCEF VIAL 1 GRAM 1 G in NS 100 ML IV 100 ML IV SCH ×2 (05:14→21:12)
[2021-10-04 05:17] LABS: EOSINOPHILS # (AUTO) 0.2 x10^3/uL (0.0-0.2); EOSINOPHILS % (AUTO) 3.9 % (0.9-2.9); HEMATOCRIT 32.2 % (42.0-54.0); HEMOGLOBIN 10.8 g/dL (13.5-18.0); LYMPHOCYTES # (AUTO) 0.7 X10^3/uL (1.3-2.9); LYMPHOCYTES % (AUTO) 14.6 % (21.0-51.0); MEAN CORPUSCULAR HEMOGLOBIN 28.4 pg (27.0-34.0); MEAN CORPUSCULAR HGB CONC 33.6 g/dL (33.0-35.0); MEAN CORPUSCULAR VOLUME 84.5 fL (80.0-100.0); MEAN PLATELET VOLUME 8.2 fL (7.4-11.0); MONOCYTES # (AUTO) 0.5 x10^3/uL (0.3-0.8); MONOCYTES % (AUTO) 10.4 % (0.0-13.0); NEUTROPHILS # (AUTO) 3.2 x10^3/uL (2.2-4.8); NEUTROPHILS % (AUTO) 70.1 % (42.0-75.0); RED BLOOD COUNT 3.81 X10^6/uL (4.7-6.0); RED CELL DISTRIBUTION WIDTH 13.2 % (11.6-16.5); WHITE BLOOD COUNT 4.5 X10^3/uL (3.6-10.0)
[2021-10-04 05:26] LABS: ALANINE AMINOTRANSFERASE 12 Units/L (12-78); ALBUMIN 2.6 g/dL (3.4-5.0); ALKALINE PHOSPHATASE 55 Units/L (46-116); ASPARTATE AMINO TRANSFERASE 14 Units/L (15-37); BLOOD UREA NITROGEN 7 mg/dL (7-18); CARBON DIOXIDE 32.4 mmol/L (21-32); CHLORIDE 101 mmol/L (98-107); COR CA(FOR HYPOALB) 9.1 mg/dL (8.5-10.1); SODIUM 139 mmol/L (136-145); TOTAL PROTEIN 6.7 g/dL (6.4-8.2); eGFR NON BLACK RACES > 60 (>60)
--- NOTE | 2021-10-04 06:12 | RAD ---
HISTORYFollow-up pneumothoraxSTUDYChest AP [id number]/23/2022FINDINGSHear t size is normal. Brooke are normal. Lung johnson are clear with the exception of minimal subsegmental atelectasis in the right lung base. There is a right chest tube in place, position unchanged. No definite residual or recurrent right pneumothorax identified. Bony thorax is unremarkable.IMPRESSIONNo evidence for recurrent pneumothoraxNo acute infiltratesSubsegmental atelectasis right lung baseElectronically signed by: MAGGI FRANCIS (Oct 04, 2021 06:10:37)
[2021-10-04] MEDS: COZAAR PO SCH (08:49)
[2021-10-04] MEDS: COREG TAB 12.5 MG PO SCH ×2 (08:50→20:28)
[2021-10-04] MEDS: LASIX PO SCH ×2 (08:50→20:27)
[2021-10-04] MEDS: ALDACTONE TAB 25 MG PO SCH (08:50)
[2021-10-04] MEDS: ZYLOPRIM PO SCH (08:50)
[2021-10-04] MEDS: LYRICA CAP 75 mg PO SCH ×2 (08:51→20:28)
--- NOTE | 2021-10-04 09:13 | DR.PROGNOT ---
Hospital Progress Notes - Progress Note for Day of: Progress Note Date: 10/04/21 - Chief Complaint Chief Complaint: having some SOB this am . stable VS .. repeated chest X ray showed expanded RT lung without residual pneumothorax .. small area of Rt base atelectasis . - Past Medical Family Social History Past Med/Fam/Surg Hx: No changes since H&P Allergies: Allergies No Known Drug Allergies Allergy (Verified 04/28/19 08:16) - Review Of Systems ROS: No change since H&P - Vital Signs Vital Signs: Temperature 98.6 F Pulse Rate [Left Apical] 69 Pulse Rate 74 Respiratory Rate 18 Blood Pressure [Left Arm] 155/85 Blood Pressure 139/82 O2 Sat by Pulse Oximetry 100 - Physical Exam Oriented: Normal Eyes: Normal Ear: Normal Nose: Normal Throat: Normal Respiratory: Generalized, Diminished Cardiovascular: Normal : Normal GI:Auscultation: Normal GI:Palpation: Normal GI: Tenderness: Normal Skin: Normal Musculoskeletal: Normal Psychiatric: Normal Mood Description: Calm Affect: Normal Speech Pattern: Clear, Appropriate - Laboratory and Diagnostics Result Diagrams: 10/04/21 04:54 10/04/21 04:54 Labs: Laboratory WBC 4.5 X10^3/uL (3.6-10.0) 10/04/21 04:54 RBC 3.81 X10^6/uL (4.7-6.0) L 10/04/21 04:54 Hgb 10.8 g/dL (13.5-18.0) L 10/04/21 04:54 Hct 32.2 % (42.0-54.0) L 10/04/21 04:54 MCV 84.5 fL (80.0-100.0) 10/04/21 04:54 MCH 28.4 pg (27.0-34.0) 10/04/21 04:54 MCHC 33.6 g/dL (33.0-35.0) 10/04/21 04:54 RDW 13.2 % (11.6-16.5) 10/04/21 04:54 Plt Count 219 X10^3/uL (150.0-450.0) 10/04/21 04:54 MPV 8.2 fL (7.4-11.0) 10/04/21 04:54 Neut % (Auto) 70.1 % (42.0-75.0) 10/04/21 04:54 Lymph % (Auto) 14.6 % (21.0-51.0) L 10/04/21 04:54 [place] % (Auto) 10.4 % (0.0-13.0) 10/04/21 04:54 Eos % (Auto) 3.9 % (0.9-2.9) H 10/04/21 04:54 Baso % (Auto) 1.0 % (0.2-1.0) 10/04/21 04:54 Neut # (Auto) 3.2 x10^3/uL (2.2-4.8) 10/04/21 04:54 Lymph # (Auto) 0.7 X10^3/uL (1.3-2.9) L 10/04/21 04:54 [place] # (Auto) 0.5 x10^3/uL (0.3-0.8) 10/04/21 04:54 Eos # (Auto) 0.2 x10^3/uL (0.0-0.2) 10/04/21 04:54 Baso # (Auto) 0.0 X10^3/uL (0.0-0.1) 10/04/21 04:54 Absolute Nucleated RBC 0.0 /100WBC 10/04/21 04:54 Sodium 139 mmol/L (136-145) 10/04/21 04:54 Corrected Sodium TNP 10/04/21 04:54 Potassium 4.0 mmol/L (3.5-5.1) 10/04/21 04:54 Chloride 101 mmol/L (98-107) 10/04/21 04:54 Carbon Dioxide 32.4 mmol/L (21-32) H 10/04/21 04:54 BUN 7 mg/dL (7-18) 10/04/21 04:54 Creatinine 1.10 mg/dL (0.70-1.30) 10/04/21 04:54 Est GFR (MDRD) Af Amer > 60 (>60) 10/04/21 04:54 Est GFR (MDRD) Non-Af > 60 (>60) 10/04/21 04:54 Glucose 99 mg/dL (65-99) 10/04/21 04:54 Calcium 8.0 mg/dL (8.5-10.1) L 10/04/21 04:54 Corrected Calcium 9.1 mg/dL (8.5-10.1) 10/04/21 04:54 Total Bilirubin 0.10 mg/dL (0.2-1.0) L 10/04/21 04:54 AST 14 Units/L (15-37) L 10/04/21 04:54 ALT 12 Units/L (12-78) 10/04/21 04:54 Alkaline Phosphatase 55 Units/L (46-116) 10/04/21 04:54 Creatine Kinase 173 Units/L (39-308) 10/02/21 07:55 Troponin I High Sens 20.6 ng/L (4.0-60.0) 10/02/21 07:55 B-Natriuretic Peptide 124 pg/mL (0-79) H 10/02/21 07:55 Total Protein 6.7 g/dL (6.4-8.2) 10/04/21 04:54 Albumin 2.6 g/dL (3.4-5.0) L 10/04/21 04:54 Globulin 4.1 g/dL (2.5-4.5) 10/04/21 04:54 Albumin/Globulin Ratio 0.6 Ratio (1.1-2.1) L 10/04/21 04:54 SARS CoV-2 RNA Rapid MIGUEL Negative (NEGATIVE) 10/02/21 07:45 - Assessment and Plan 1: spontaneous RT pneumothorax S/P insertion of chest tube . Rt base atelectasis. same plan .incentive spirometer , OOB. repeat X Ray in am .. - Problem Patient Problems: Patient Problems Tension pneumothorax (Acute) J93.0 Respiratory distress (Acute) R06.03 HTN (hypertension) (Chronic) I10 CHF (congestive heart failure) (Chronic) I50.9
[2021-10-04] MEDS: LIPITOR TAB 40 MG PO SCH (20:28)
[2021-10-04] MEDS ORDERED: NS 1/2 1,000 ML IV 1,000 ML IV ONE (20:29)
[2021-10-05] MEDS: ANCEF VIAL 1 GRAM 1 G in NS 100 ML IV 100 ML IV SCH ×3 (05:03→21:37)
[2021-10-05 05:32] LABS: BASOPHILS % (AUTO) 0.5 % (0.2-1.0); EOSINOPHILS # (AUTO) 0.2 x10^3/uL (0.0-0.2); EOSINOPHILS % (AUTO) 3.9 % (0.9-2.9); HEMOGLOBIN 10.4 g/dL (13.5-18.0); LYMPHOCYTES # (AUTO) 0.6 X10^3/uL (1.3-2.9); LYMPHOCYTES % (AUTO) 13.3 % (21.0-51.0); MEAN CORPUSCULAR HEMOGLOBIN 28.6 pg (27.0-34.0); MEAN CORPUSCULAR HGB CONC 33.7 g/dL (33.0-35.0); MEAN CORPUSCULAR VOLUME 84.7 fL (80.0-100.0); MEAN PLATELET VOLUME 8.1 fL (7.4-11.0); MONOCYTES # (AUTO) 0.5 x10^3/uL (0.3-0.8); MONOCYTES % (AUTO) 11.1 % (0.0-13.0); NEUTROPHILS # (AUTO) 3.4 x10^3/uL (2.2-4.8); NEUTROPHILS % (AUTO) 71.2 % (42.0-75.0); RED BLOOD COUNT 3.65 X10^6/uL (4.7-6.0); RED CELL DISTRIBUTION WIDTH 13.1 % (11.6-16.5); WHITE BLOOD COUNT 4.8 X10^3/uL (3.6-10.0)
[2021-10-05 05:43] LABS: ALANINE AMINOTRANSFERASE 7 Units/L (12-78); ALBUMIN 2.5 g/dL (3.4-5.0); ALKALINE PHOSPHATASE 50 Units/L (46-116); ASPARTATE AMINO TRANSFERASE 13 Units/L (15-37); BLOOD UREA NITROGEN 15 mg/dL (7-18); CALCIUM 7.8 mg/dL (8.5-10.1); CARBON DIOXIDE 31.9 mmol/L (21-32); CHLORIDE 100 mmol/L (98-107); CREATININE 1.52 mg/dL (0.70-1.30); SODIUM 136 mmol/L (136-145); TOTAL PROTEIN 6.6 g/dL (6.4-8.2); eGFR NON BLACK RACES 49 (>60)
[2021-10-05] MEDS ORDERED: MILK OF MAGNESIA PO PRN (07:51)
[2021-10-05] MEDS ORDERED: COLACE CAP 100 MG PO ONE (07:55)
[2021-10-05] MEDS ORDERED: MILK OF MAGNESIA ONE (07:56)
[2021-10-05] MEDS: ZYLOPRIM PO SCH (08:03)
[2021-10-05] MEDS: COLACE CAP 100 MG PO PRN (08:04)
[2021-10-05] MEDS: COZAAR PO SCH (08:05)
[2021-10-05] MEDS: LASIX PO SCH ×2 (08:05→20:29)
[2021-10-05] MEDS: LYRICA CAP 75 mg PO SCH ×2 (08:05→20:29)
[2021-10-05] MEDS: COREG TAB 12.5 MG PO SCH ×2 (08:05→20:28)
[2021-10-05] MEDS: ALDACTONE TAB 25 MG PO SCH (08:05)
--- NOTE | 2021-10-05 08:08 | RAD ---
HISTORYShortness of breath, follow-up right pneumothoraxSTUDYChest AP [id number]/24/2022FINDINGSHear t size is normal. Brooke are normal. Lungs are well inflated and clear. There is a right chest tube in place. No definite residual or recurrent pneumothorax is identified. There is a small amount of subcutaneous emphysema along the right lower chest wall. Bony thorax is unremarkable.IMPRESSIONNo evidence for recurrent pneumothoraxNo acute infiltratesSmall amount of subcutaneous emphysema along the right lower chest wall.Electronically signed by: MAGGI FRANCIS (Oct 05, 2021 08:06:35)
[2021-10-05] MEDS: NS 1/2 1,000 ML IV 1,000 ML IV SCH ×2 (09:04→13:35)
--- NOTE | 2021-10-05 10:05 | DR.PROGNOT ---
Hospital Progress Notes - Progress Note for Day of: Progress Note Date: 10/05/21 - Chief Complaint Chief Complaint: feeling better this am . stable VS .. repeated chest X ray showed expanded RT lung without residual pneumothorax .. small area of Rt base atelectasis . - Past Medical Family Social History Past Med/Fam/Surg Hx: No changes since H&P Allergies: Allergies No Known Drug Allergies Allergy (Verified 04/28/19 08:16) - Review Of Systems ROS: No change since H&P - Vital Signs Vital Signs: Temperature 98.3 F Pulse Rate [Left Apical] 69 Pulse Rate 84 Respiratory Rate 15 Blood Pressure [Left Arm] 155/85 Blood Pressure 113/62 O2 Sat by Pulse Oximetry 97 - Physical Exam Oriented: Normal Eyes: Normal Ear: Normal Nose: Normal Throat: Normal Respiratory: Normal (chest tube in place with clear lung field ..), Generalized Cardiovascular: Normal : Normal GI:Auscultation: Normal GI:Palpation: Normal GI: Tenderness: Normal Skin: Normal Musculoskeletal: Normal Psychiatric: Normal Mood Description: Calm Affect: Normal Speech Pattern: Clear, Appropriate - Laboratory and Diagnostics Result Diagrams: 10/05/21 05:10 10/05/21 05:10 Labs: Laboratory WBC 4.8 X10^3/uL (3.6-10.0) 10/05/21 05:10 RBC 3.65 X10^6/uL (4.7-6.0) L 10/05/21 05:10 Hgb 10.4 g/dL (13.5-18.0) L 10/05/21 05:10 Hct 31.0 % (42.0-54.0) L 10/05/21 05:10 MCV 84.7 fL (80.0-100.0) 10/05/21 05:10 MCH 28.6 pg (27.0-34.0) 10/05/21 05:10 MCHC 33.7 g/dL (33.0-35.0) 10/05/21 05:10 RDW 13.1 % (11.6-16.5) 10/05/21 05:10 Plt Count 230 X10^3/uL (150.0-450.0) 10/05/21 05:10 MPV 8.1 fL (7.4-11.0) 10/05/21 05:10 Neut % (Auto) 71.2 % (42.0-75.0) 10/05/21 05:10 Lymph % (Auto) 13.3 % (21.0-51.0) L 10/05/21 05:10 [place] % (Auto) 11.1 % (0.0-13.0) 10/05/21 05:10 Eos % (Auto) 3.9 % (0.9-2.9) H 10/05/21 05:10 Baso % (Auto) 0.5 % (0.2-1.0) 10/05/21 05:10 Neut # (Auto) 3.4 x10^3/uL (2.2-4.8) 10/05/21 05:10 Lymph # (Auto) 0.6 X10^3/uL (1.3-2.9) L 10/05/21 05:10 [place] # (Auto) 0.5 x10^3/uL (0.3-0.8) 10/05/21 05:10 Eos # (Auto) 0.2 x10^3/uL (0.0-0.2) 10/05/21 05:10 Baso # (Auto) 0.0 X10^3/uL (0.0-0.1) 10/05/21 05:10 Absolute Nucleated RBC 0.0 /100WBC 10/05/21 05:10 Sodium 136 mmol/L (136-145) 10/05/21 05:10 Corrected Sodium TNP 10/05/21 05:10 Potassium 4.1 mmol/L (3.5-5.1) 10/05/21 05:10 Chloride 100 mmol/L (98-107) 10/05/21 05:10 Carbon Dioxide 31.9 mmol/L (21-32) 10/05/21 05:10 BUN 15 mg/dL (7-18) 10/05/21 05:10 Creatinine 1.52 mg/dL (0.70-1.30) H 10/05/21 05:10 Est GFR (MDRD) Af Amer 59 (>60) 10/05/21 05:10 Est GFR (MDRD) Non-Af 49 (>60) L 10/05/21 05:10 Glucose 107 mg/dL (65-99) H 10/05/21 05:10 Calcium 7.8 mg/dL (8.5-10.1) L 10/05/21 05:10 Corrected Calcium 9.0 mg/dL (8.5-10.1) 10/05/21 05:10 Total Bilirubin 0.20 mg/dL (0.2-1.0) 10/05/21 05:10 AST 13 Units/L (15-37) L 10/05/21 05:10 ALT 7 Units/L (12-78) L 10/05/21 05:10 Alkaline Phosphatase 50 Units/L (46-116) 10/05/21 05:10 Creatine Kinase 173 Units/L (39-308) 10/02/21 07:55 Troponin I High Sens 20.6 ng/L (4.0-60.0) 10/02/21 07:55 B-Natriuretic Peptide 124 pg/mL (0-79) H 10/02/21 07:55 Total Protein 6.6 g/dL (6.4-8.2) 10/05/21 05:10 Albumin 2.5 g/dL (3.4-5.0) L 10/05/21 05:10 Globulin 4.1 g/dL (2.5-4.5) 10/05/21 05:10 Albumin/Globulin Ratio 0.6 Ratio (1.1-2.1) L 10/05/21 05:10 SARS CoV-2 RNA Rapid MIGUEL Negative (NEGATIVE) 10/02/21 07:45 - Assessment and Plan 1: spontaneous RT pneumothorax S/P insertion of chest tube . Rt base atele ctasis. same plan .incentive spirometer , OOB. repeat X Ray in am .. - Problem Patient Problems: Patient Problems Tension pneumothorax (Acute) J93.0 Respiratory distress (Acute) R06.03 HTN (hypertension) (Chronic) I10 CHF (congestive heart failure) (Chronic) I50.9
--- NOTE | 2021-10-05 13:29 | PCM.PROG ---
Progress Note - Progress Note for Day of Date of Exam: 10/04/21 - Subjective Subjective: IS CURRENTLY INPATIENT STATUS FOR TREATMENT OF A TENSION PNEUMOTHORAX AND RESPIRATORY DISTRESS. HE HAS A PMH OF CHF AND HTN. TODAY, HE IS ALERT AND ORIENTED, LYING IN BED ON MORNING ROUNDS. HE REPORTS SLIGHT DISCOMFORT TO AREA OF CHEST TUBE INSERTION AND GENERALIZED ACHING. HE ALSO COMPLAINS OF SHORTNESS OF BREATH AT TIMES. ON EXAMINATION, HEART IS REGULAR IN RATE AND RHYTHM. BILATERAL LUNGS NOTED WITH DIMINISHED LUNG SOUNDS THROUGHOUT. CHEST TUBE NOTED TO RIGHT SIDE CHEST WALL. ABDOMEN IS ROUND, SOFT, AND NON-TENDER WITH NORMAL BOWEL SOUNDS NOTED IN ALL QUADRANTS. HIS VITALS THIS MORNING ARE: 98.0-100-22-99%-161/93. LABS WERE OBTAINED. WBC 4.5, RBC 3.81, HGB 10.8, HCT 32.2, SODIUM 139, POTASSIUM 4.0, CARBON DIOXIDE 32.4, BUN 7, CREATININE 1.10, GLUCOSE 99, CALCIUM 8.0, TOTAL BILI 0.10, AST 14, TOTAL PROTEIN 6.7, ALBUMIN 2.6. CHEST XRAY REPEATED AND REVEALED: No evidence for recurrent pneumothorax. No acute infiltrates. Subsegmental atelectasis right lung base. HE IS CURRENTLY RECEIVING 1/2NS AT KVO, ANCEF 1G IV Q8H, PROVENTIL NEBS Q2H PRN, DILAUDID 1-2MG IV Q4H PRN PAIN, PERCOCET 5/325MG PO Q4H PRN, AND ZOFRAN 4MG IV Q8H PRN. HIS HOME MEDICATIONS OF ALLOPURINOL, LIPITOR, LASIX, COZAAR, NITROSTAT, LYRICA, AND SPIRONOLACTONE WERE RESUMED. WE WILL CONTINUE WITH CURRENT PLAN OF CARE TODAY. OTHERWISE, WE WILL FOLLOW-UP WITH AM LABS AND CONTINUE TO MONITOR. TIME SPENT ON CLINICAL ASSESSMENT, REVIWING LABS AND IMAGING, DECISION MAKING, AND DOCUMENTATION GREATER THAN 45 MINUTES. - Past Medical Family Social History Past Med/Fam/Surg Hx: No changes since H&P Allergies: Allergies No Known Drug Allergies Allergy (Verified 04/28/19 08:16) - Review of Systems ROS: No change since H&P - Vital Signs and I&O's Vital Signs: Temperature 100.2 F Pulse Rate [Left Apical] 69 Pulse Rate 80 Respiratory Rate 19 Blood Pressure [Left Arm] 155/85 Blood Pressure 104/61 O2 Sat by Pulse Oximetry 99 Intake and Output: Intake & Output 10/03/21 10/04/21 10/05/21 10/06/21 11:59 11:59 11:59 11:59 Intake Total 1052 / 1052 1664 / 1664 1556 / 1556 Output Total 978 / 978 1650 / 1650 1028 / 1028 Balance 74 / 74 14 528 / 528 - Physical Exam Oriented: Normal Eyes: Normal Ear: Normal Nose: Normal Throat: Normal Respiratory: Normal (chest tube in place with clear lung field ..), Generalized Cardiovascular: Normal : Normal Auscultation: Bowel Sounds: Normal Palpation: Normal Tenderness: Normal Skin: Normal Musculoskeletal: Normal Psychiatric: Normal Mood Description: Calm Affect: Normal Speech Pattern: Clear, Appropriate - Laboratory and Diagnostics Result Diagrams: 10/05/21 05:10 10/05/21 05:10 Labs: Laboratory WBC 4.8 X10^3/uL (3.6-10.0) 10/05/21 05:10 RBC 3.65 X10^6/uL (4.7-6.0) L 10/05/21 05:10 Hgb 10.4 g/dL (13.5-18.0) L 10/05/21 05:10 Hct 31.0 % (42.0-54.0) L 10/05/21 05:10 MCV 84.7 fL (80.0-100.0) 10/05/21 05:10 MCH 28.6 pg (27.0-34.0) 10/05/21 05:10 MCHC 33.7 g/dL (33.0-35.0) 10/05/21 05:10 RDW 13.1 % (11.6-16.5) 10/05/21 05:10 Plt Count 230 X10^3/uL (150.0-450.0) 10/05/21 05:10 MPV 8.1 fL (7.4-11.0) 10/05/21 05:10 Neut % (Auto) 71.2 % (42.0-75.0) 10/05/21 05:10 Lymph % (Auto) 13.3 % (21.0-51.0) L 10/05/21 05:10 [place] % (Auto) 11.1 % (0.0-13.0) 10/05/21 05:10 Eos % (Auto) 3.9 % (0.9-2.9) H 10/05/21 05:10 Baso % (Auto) 0.5 % (0.2-1.0) 10/05/21 05:10 Neut # (Auto) 3.4 x10^3/uL (2.2-4.8) 10/05/21 05:10 Lymph # (Auto) 0.6 X10^3/uL (1.3-2.9) L 10/05/21 05:10 [place] # (Auto) 0.5 x10^3/uL (0.3-0.8) 10/05/21 05:10 Eos # (Auto) 0.2 x10^3/uL (0.0-0.2) 10/05/21 05:10 Baso # (Auto) 0.0 X10^3/uL (0.0-0.1) 10/05/21 05:10 Absolute Nucleated RBC 0.0 /100WBC 10/05/21 05:10 Sodium 136 mmol/L (136-145) 10/05/21 05:10 Corrected Sodium TNP 10/05/21 05:10 Potassium 4.1 mmol/L (3.5-5.1) 10/05/21 05:10 Chloride 100 mmol/L (98-107) 10/05/21 05:10 Carbon Dioxide 31.9 mmol/L (21-32) 10/05/21 05:10 BUN 15 mg/dL (7-18) 10/05/21 05:10 Creatinine 1.52 mg/dL (0.70-1.30) H 10/05/21 05:10 Est GFR (MDRD) Af Amer 59 (>60) 10/05/21 05:10 Est GFR (MDRD) Non-Af 49 (>60) L 10/05/21 05:10 Glucose 107 mg/dL (65-99) H 10/05/21 05:10 Calcium 7.8 mg/dL (8.5-10.1) L 10/05/21 05:10 Corrected Calcium 9.0 mg/dL (8.5-10.1) 10/05/21 05:10 Total Bilirubin 0.20 mg/dL (0.2-1.0) 10/05/21 05:10 AST 13 Units/L (15-37) L 10/05/21 05:10 ALT 7 Units/L (12-78) L 10/05/21 05:10 Alkaline Phosphatase 50 Units/L (46-116) 10/05/21 05:10 Creatine Kinase 173 Units/L (39-308) 10/02/21 07:55 Troponin I High Sens 20.6 ng/L (4.0-60.0) 10/02/21 07:55 B-Natriuretic Peptide 124 pg/mL (0-79) H 10/02/21 07:55 Total Protein 6.6 g/dL (6.4-8.2) 10/05/21 05:10 Albumin 2.5 g/dL (3.4-5.0) L 10/05/21 05:10 Globulin 4.1 g/dL (2.5-4.5) 10/05/21 05:10 Albumin/Globulin Ratio 0.6 Ratio (1.1-2.1) L 10/05/21 05:10 SARS CoV-2 RNA Rapid MIGUEL Negative (NEGATIVE) 10/02/21 07:45 - Plan (1) Tension pneumothorax Status: Acute Plan: CHEST TUBE, 1/2NS AT KVO, ANCEF 1G IV Q8H, PROVENTIL NEBS Q2H PRN, DILAUDID 1-2MG IV Q4H PRN PAIN, PERCOCET 5/325MG PO Q4H PRN, AND ZOFRAN 4MG IV Q8H PRN. RESUME HOME MEDS. MONITOR LABS AND CHEST XRAY (2) Respiratory distress Status: Acute (3) CHF (congestive heart failure) Status: Chronic Qualifiers: Heart failure chronicity: acute on chronic (4) HTN (hypertension) Status: Chronic Qualifiers: Hypertension type: primary hypertension Qualified Code(s): I10 - Essential (primary) hypertension
[2021-10-05] MEDS: PERCOCET TAB 5/325 MG PO PRN (20:29)
[2021-10-05] MEDS: LIPITOR TAB 40 MG PO SCH (20:29)
[2021-10-06] MEDS: ANCEF VIAL 1 GRAM 1 G in NS 100 ML IV 100 ML IV SCH (05:11)
[2021-10-06] MEDS: NS 1/2 1,000 ML IV 1,000 ML IV SCH (05:11)
[2021-10-06 05:50] LABS: BASOPHILS % (AUTO) 1.3 % (0.2-1.0); EOSINOPHILS # (AUTO) 0.3 x10^3/uL (0.0-0.2); HEMATOCRIT 30.7 % (42.0-54.0); HEMOGLOBIN 10.4 g/dL (13.5-18.0); LYMPHOCYTES # (AUTO) 0.7 X10^3/uL (1.3-2.9); LYMPHOCYTES % (AUTO) 19.9 % (21.0-51.0); MEAN CORPUSCULAR HEMOGLOBIN 28.7 pg (27.0-34.0); MEAN CORPUSCULAR HGB CONC 33.8 g/dL (33.0-35.0); MEAN CORPUSCULAR VOLUME 84.9 fL (80.0-100.0); MEAN PLATELET VOLUME 8.3 fL (7.4-11.0); MONOCYTES # (AUTO) 0.5 x10^3/uL (0.3-0.8); MONOCYTES % (AUTO) 13.2 % (0.0-13.0); NEUTROPHILS # (AUTO) 2.1 x10^3/uL (2.2-4.8); NEUTROPHILS % (AUTO) 58.6 % (42.0-75.0); RED BLOOD COUNT 3.62 X10^6/uL (4.7-6.0); RED CELL DISTRIBUTION WIDTH 13.1 % (11.6-16.5); WHITE BLOOD COUNT 3.6 X10^3/uL (3.6-10.0)
[2021-10-06 05:56] LABS: ALANINE AMINOTRANSFERASE 7 Units/L (12-78); ALBUMIN 2.5 g/dL (3.4-5.0); ALKALINE PHOSPHATASE 45 Units/L (46-116); ASPARTATE AMINO TRANSFERASE 20 Units/L (15-37); BLOOD UREA NITROGEN 15 mg/dL (7-18); CALCIUM 8.1 mg/dL (8.5-10.1); CARBON DIOXIDE 32.1 mmol/L (21-32); CHLORIDE 99 mmol/L (98-107); COR CA(FOR HYPOALB) 9.3 mg/dL (8.5-10.1); SODIUM 138 mmol/L (136-145); TOTAL PROTEIN 6.7 g/dL (6.4-8.2); eGFR NON BLACK RACES 54 (>60)
--- NOTE | 2021-10-06 06:06 | RAD ---
HISTORYFollow-up pneumothoraxSTUDYChest AP citpmgjjAEEXUOZQNI09/25/2022FINDINGSHear t size remains normal. Brooke are normal. Lungs are well inflated and free of acute infiltrates. No pleural effusions are identified. There is a right chest tube in place. No definite pneumothorax is identified. Minimal subcutaneous emphysema is present along the right lower lateral chest wall. Bony thorax is unremarkable.IMPRESSIONNo significant change from the prior examinationElectronically signed by: MAGGI FRANCIS (Oct 06, 2021 06:04:50)
[2021-10-06] MEDS: ZYLOPRIM PO SCH (08:06)
[2021-10-06] MEDS: LASIX PO SCH ×2 (08:06→20:21)
[2021-10-06] MEDS: ALDACTONE TAB 25 MG PO SCH (08:06)
[2021-10-06] MEDS: COZAAR PO SCH (08:06)
[2021-10-06] MEDS: COREG TAB 12.5 MG PO SCH ×2 (08:07→20:21)
[2021-10-06] MEDS: LYRICA CAP 75 mg PO SCH ×2 (08:07→20:22)
--- NOTE | 2021-10-06 10:29 | PCM.PROG ---
Progress Note - Progress Note for Day of Date of Exam: 10/05/21 - Subjective Subjective: IS CURRENTLY INPATIENT STATUS FOR TREATMENT OF A TENSION PNEUMOTHORAX AND RESPIRATORY DISTRESS. HE HAS A PMH OF CHF AND HTN. TODAY, HE IS ALERT AND ORIENTED, LYING IN BED ON MORNING ROUNDS. HE REPORTS SLIGHT DISCOMFORT TO AREA OF CHEST TUBE INSERTION AND GENERALIZED ACHING. HE ALSO COMPLAINS OF SHORTNESS OF BREATH AT TIMES. ON EXAMINATION, HEART IS REGULAR IN RATE AND RHYTHM. BILATERAL LUNGS NOTED WITH DIMINISHED LUNG SOUNDS THROUGHOUT. CHEST TUBE NOTED TO RIGHT SIDE CHEST WALL. ABDOMEN IS ROUND, SOFT, AND NON-TENDER WITH NORMAL BOWEL SOUNDS NOTED IN ALL QUADRANTS. HIS VITALS THIS MORNING ARE: 98.3-98-23-94%-114/63. LABS WERE OBTAINED. WBC 4.8, RBC 3.65, HGB 10.4, HCT 31.0, SODIUM 136, POTASSIUM 4.1, CHLORIDE 100, BUN 15, CREATININE 1.52, GLUCOSE 107, CALCIUM 7.8, AST 13, ALT 7, TOTAL PROTEIN 6.6, ALBUMIN 2.5. CHEST XRAY REPEATED AND REVEALED: No evidence for recurrent pneumothorax. No acute infiltrates. Small amount of subcutaneous emphysema along the right lower chest wall. HE IS CURRENTLY RECEIVING 1/2NS AT KVO, ANCEF 1G IV Q8H, PROVENTIL NEBS Q2H PRN, DILAUDID 1-2MG IV Q4H PRN PAIN, PERCOCET 5/325MG PO Q4H PRN, AND ZOFRAN 4MG IV Q8H PRN. HIS HOME MEDICATIONS OF ALLOPURINOL, LIPITOR, LASIX, COZAAR, NITROSTAT, LYRICA, AND SPIRONOLACTONE WERE RESUMED. WE WILL CONTINUE WITH CURRENT PLAN OF CARE TODAY. OTHERWISE, WE WILL FOLLOW-UP WITH AM LABS AND CONTINUE TO MONITOR. TIME SPENT ON CLINICAL ASSESSMENT, REVIWING LABS AND IMAGING, DECISION MAKING, AND DOCUMENTATION GREATER THAN 45 MINUTES. - Past Medical Family Social History Past Med/Fam/Surg Hx: No changes since H&P Allergies: Allergies No Known Drug Allergies Allergy (Verified 04/28/19 08:16) - Review of Systems ROS: No change since H&P - Vital Signs and I&O's Vital Signs: Temperature 98.3 F Pulse Rate [Left Apical] 69 Pulse Rate 82 Respiratory Rate 16 Blood Pressure [Left Arm] 155/85 Blood Pressure 108/56 O2 Sat by Pulse Oximetry 85 Intake and Output: Intake & Output 10/03/21 10/04/21 10/05/21 10/06/21 11:59 11:59 11:59 11:59 Intake Total 1052 / 1052 1664 / 1664 1556 / 1556 2365 / 2365 Output Total 978 / 978 1650 / 1650 1028 / 1028 3 / 2033 Balance 74 / 74 528 / 528 332 / 332 - Physical Exam Oriented: Normal Eyes: Normal Ear: Normal Nose: Normal Throat: Normal Respiratory: Normal (chest tube in place with clear lung field ..), Generalized Cardiovascular: Normal : Normal Auscultation: Bowel Sounds: Normal Palpation: Normal Tenderness: Normal Skin: Normal Musculoskeletal: Normal Psychiatric: Normal Mood Description: Calm Affect: Normal Speech Pattern: Clear, Appropriate - Laboratory and Diagnostics Result Diagrams: 10/06/21 05:30 10/06/21 05:30 Labs: Laboratory WBC 3.6 X10^3/uL (3.6-10.0) 10/06/21 05:30 RBC 3.62 X10^6/uL (4.7-6.0) L 10/06/21 05:30 Hgb 10.4 g/dL (13.5-18.0) L 10/06/21 05:30 Hct 30.7 % (42.0-54.0) L 10/06/21 05:30 MCV 84.9 fL (80.0-100.0) 10/06/21 05:30 MCH 28.7 pg (27.0-34.0) 10/06/21 05:30 MCHC 33.8 g/dL (33.0-35.0) 10/06/21 05:30 RDW 13.1 % (11.6-16.5) 10/06/21 05:30 Plt Count 237 X10^3/uL (150.0-450.0) 10/06/21 05:30 MPV 8.3 fL (7.4-11.0) 10/06/21 05:30 Neut % (Auto) 58.6 % (42.0-75.0) 10/06/21 05:30 Lymph % (Auto) 19.9 % (21.0-51.0) L 10/06/21 05:30 Webb % (Auto) 13.2 % (0.0-13.0) H 10/06/21 05:30 Eos % (Auto) 7.0 % (0.9-2.9) H 10/06/21 05:30 Baso % (Auto) 1.3 % (0.2-1.0) H 10/06/21 05:30 Neut # (Auto) 2.1 x10^3/uL (2.2-4.8) L 10/06/21 05:30 Lymph # (Auto) 0.7 X10^3/uL (1.3-2.9) L 10/06/21 05:30 Webb # (Auto) 0.5 x10^3/uL (0.3-0.8) 10/06/21 05:30 Eos # (Auto) 0.3 x10^3/uL (0.0-0.2) H 10/06/21 05:30 Baso # (Auto) 0.0 X10^3/uL (0.0-0.1) 10/06/21 05:30 Absolute Nucleated RBC 0.0 /100WBC 10/06/21 05:30 Sodium 138 mmol/L (136-145) 10/06/21 05:30 Corrected Sodium TNP 10/06/21 05:30 Potassium 4.1 mmol/L (3.5-5.1) 10/06/21 05:30 Chloride 99 mmol/L (98-107) 10/06/21 05:30 Carbon Dioxide 32.1 mmol/L (21-32) H 10/06/21 05:30 BUN 15 mg/dL (7-18) 10/06/21 05:30 Creatinine 1.40 mg/dL (0.70-1.30) H 10/06/21 05:30 Est GFR (MDRD) Af Amer > 60 (>60) 10/06/21 05:30 Est GFR (MDRD) Non-Af 54 (>60) L 10/06/21 05:30 Glucose 98 mg/dL (65-99) 10/06/21 05:30 Calcium 8.1 mg/dL (8.5-10.1) L 10/06/21 05:30 Corrected Calcium 9.3 mg/dL (8.5-10.1) 10/06/21 05:30 Total Bilirubin 0.20 mg/dL (0.2-1.0) 10/06/21 05:30 AST 20 Units/L (15-37) 10/06/21 05:30 ALT 7 Units/L (12-78) L 10/06/21 05:30 Alkaline Phosphatase 45 Units/L (46-116) L 10/06/21 05:30 Creatine Kinase 173 Units/L (39-308) 10/02/21 07:55 Troponin I High Sens 20.6 ng/L (4.0-60.0) 10/02/21 07:55 B-Natriuretic Peptide 124 pg/mL (0-79) H 10/02/21 07:55 Total Protein 6.7 g/dL (6.4-8.2) 10/06/21 05:30 Albumin 2.5 g/dL (3.4-5.0) L 10/06/21 05:30 Globulin 4.2 g/dL (2.5-4.5) 10/06/21 05:30 Albumin/Globulin Ratio 0.6 Ratio (1.1-2.1) L 10/06/21 05:30 SARS CoV-2 RNA Rapid MIGUEL Negative (NEGATIVE) 10/02/21 07:45 - Plan (1) Tension pneumothorax Status: Acute Plan: CHEST TUBE, 1/2NS AT KVO, ANCEF 1G IV Q8H, PROVENTIL NEBS Q2H PRN, DILAUDID 1-2MG IV Q4H PRN PAIN, PERCOCET 5/325MG PO Q4H PRN, AND ZOFRAN 4MG IV Q8H PRN. RESUME HOME MEDS. MONITOR LABS AND CHEST XRAY (2) Respiratory distress Status: Acute (3) CHF (congestive heart failure) Status: Chronic Qualifiers: Heart failure chronicity: acute on chronic (4) HTN (hypertension) Status: Chronic Qualifiers: Hypertension type: primary hypertension Qualified Code(s): I10 - Essential (primary) hypertension
--- NOTE | 2021-10-06 11:05 | DR.PROGNOT ---
Hospital Progress Notes - Progress Note for Day of: Progress Note Date: 10/06/21 - Chief Complaint Chief Complaint: feeling better this am . dressing was changed last night , no infection or leak. repeated chest X ray showed expanded RT lung without residual pneumothorax .. small area of Rt base atelectasis . - Past Medical Family Social History Past Med/Fam/Surg Hx: No changes since H&P Allergies: Allergies No Known Drug Allergies Allergy (Verified 04/28/19 08:16) - Review Of Systems ROS: No change since H&P - Vital Signs Vital Signs: Temperature 98.3 F Pulse Rate [Left Apical] 69 Pulse Rate 82 Respiratory Rate 16 Blood Pressure [Left Arm] 155/85 Blood Pressure 108/56 O2 Sat by Pulse Oximetry 85 - Physical Exam Oriented: Normal Eyes: Normal Ear: Normal Nose: Normal Throat: Normal Respiratory: Normal (chest tube in place with clear lung field ..), Generalized Cardiovascular: Normal : Normal GI:Auscultation: Normal GI:Palpation: Normal GI: Tenderness: Normal Skin: Normal Musculoskeletal: Normal Psychiatric: Normal Mood Description: Calm Affect: Normal Speech Pattern: Clear, Appropriate - Laboratory and Diagnostics Result Diagrams: 10/06/21 05:30 10/06/21 05:30 Labs: Laboratory WBC 3.6 X10^3/uL (3.6-10.0) 10/06/21 05:30 RBC 3.62 X10^6/uL (4.7-6.0) L 10/06/21 05:30 Hgb 10.4 g/dL (13.5-18.0) L 10/06/21 05:30 Hct 30.7 % (42.0-54.0) L 10/06/21 05:30 MCV 84.9 fL (80.0-100.0) 10/06/21 05:30 MCH 28.7 pg (27.0-34.0) 10/06/21 05:30 MCHC 33.8 g/dL (33.0-35.0) 10/06/21 05:30 RDW 13.1 % (11.6-16.5) 10/06/21 05:30 Plt Count 237 X10^3/uL (150.0-450.0) 10/06/21 05:30 MPV 8.3 fL (7.4-11.0) 10/06/21 05:30 Neut % (Auto) 58.6 % (42.0-75.0) 10/06/21 05:30 Lymph % (Auto) 19.9 % (21.0-51.0) L 10/06/21 05:30 [place] % (Auto) 13.2 % (0.0-13.0) H 10/06/21 05:30 Eos % (Auto) 7.0 % (0.9-2.9) H 10/06/21 05:30 Baso % (Auto) 1.3 % (0.2-1.0) H 10/06/21 05:30 Neut # (Auto) 2.1 x10^3/uL (2.2-4.8) L 10/06/21 05:30 Lymph # (Auto) 0.7 X10^3/uL (1.3-2.9) L 10/06/21 05:30 [place] # (Auto) 0.5 x10^3/uL (0.3-0.8) 10/06/21 05:30 Eos # (Auto) 0.3 x10^3/uL (0.0-0.2) H 10/06/21 05:30 Baso # (Auto) 0.0 X10^3/uL (0.0-0.1) 10/06/21 05:30 Absolute Nucleated RBC 0.0 /100WBC 10/06/21 05:30 Sodium 138 mmol/L (136-145) 10/06/21 05:30 Corrected Sodium TNP 10/06/21 05:30 Potassium 4.1 mmol/L (3.5-5.1) 10/06/21 05:30 Chloride 99 mmol/L (98-107) 10/06/21 05:30 Carbon Dioxide 32.1 mmol/L (21-32) H 10/06/21 05:30 BUN 15 mg/dL (7-18) 10/06/21 05:30 Creatinine 1.40 mg/dL (0.70-1.30) H 10/06/21 05:30 Est GFR (MDRD) Af Amer > 60 (>60) 10/06/21 05:30 Est GFR (MDRD) Non-Af 54 (>60) L 10/06/21 05:30 Glucose 98 mg/dL (65-99) 10/06/21 05:30 Calcium 8.1 mg/dL (8.5-10.1) L 10/06/21 05:30 Corrected Calcium 9.3 mg/dL (8.5-10.1) 10/06/21 05:30 Total Bilirubin 0.20 mg/dL (0.2-1.0) 10/06/21 05:30 AST 20 Units/L (15-37) 10/06/21 05:30 ALT 7 Units/L (12-78) L 10/06/21 05:30 Alkaline Phosphatase 45 Units/L (46-116) L 10/06/21 05:30 Creatine Kinase 173 Units/L (39-308) 10/02/21 07:55 Troponin I High Sens 20.6 ng/L (4.0-60.0) 10/02/21 07:55 B-Natriuretic Peptide 124 pg/mL (0-79) H 10/02/21 07:55 Total Protein 6.7 g/dL (6.4-8.2) 10/06/21 05:30 Albumin 2.5 g/dL (3.4-5.0) L 10/06/21 05:30 Globulin 4.2 g/dL (2.5-4.5) 10/06/21 05:30 Albumin/Globulin Ratio 0.6 Ratio (1.1-2.1) L 10/06/21 05:30 SARS CoV-2 RNA Rapid MIGUEL Negative (NEGATIVE) 10/02/21 07:45 - Assessment and Plan 1: spontaneous RT pneumothorax S/P insertion of chest tube . Rt base atelectasis. same plan .incentive spirometer , OOB. repeat X Ray in am .. - Problem Patient Problems: Patient Problems Tension pneumothorax (Acute) J93.0 Respiratory distress (Acute) R06.03 HTN (hypertension) (Chronic) I10 CHF (congestive heart failure) (Chronic) I50.9
--- NOTE | 2021-10-06 11:53 | PCM.PROG ---
Progress Note - Progress Note for Day of Date of Exam: 10/06/21 - Subjective Subjective: IS CURRENTLY INPATIENT STATUS FOR TREATMENT OF A SPONTANEOUS PNEUMOTHORAX AND RESPIRATORY DISTRESS. HE HAS A PMH OF CHF AND HTN. TODAY, HE IS ALERT AND ORIENTED, LYING IN BED ON MORNING ROUNDS. HE DENIES CURRENT COMPLAINTS THIS MORNING. ON EXAMINATION, HEART IS REGULAR IN RATE AND RHYTHM. BILATERAL LUNGS NOTED WITH DIMINISHED LUNG SOUNDS THROUGHOUT. CHEST TUBE NOTED TO RIGHT SIDE CHEST WALL. ABDOMEN IS ROUND, SOFT, AND NON-TENDER WITH NORMAL BOWEL SOUNDS NOTED IN ALL QUADRANTS. HIS VITALS THIS MORNING ARE: 98.3-75-16-95%-106/88. LABS WERE OBTAINED. WBC 3.6, RBC 3.62, HGB 10.4, HCT 30.7, SODIUM 138, POTASSIUM 4.1, CHLORIDE 99, CARBON DIOXIDE 32.1, BUN 15, CREATININE 1.40, GLUCOSE 98, CALCIUM 8.1, AST 20, ALT 7, ALK PHOS 45, TOTAL PROTEIN 6.7, ALBUMIN 2.5. CHEST XRAY REPEATED AND REVEALED: Heart size remains normal. Brooke are normal. Lungs are well inflated and free of acute infiltrates. No pleural effusions are identified. There is a right chest tube in place. No definite pneumothorax is identified. Minimal subcutaneous emphysema is present along the right lower lateral chest wall. Bony thorax is unremarkable. HE IS CURRENTLY RECEIVING 1/2NS AT KVO, ANCEF 1G IV Q8H, PROVENTIL NEBS Q2H PRN, DILAUDID 1-2MG IV Q4H PRN PAIN, PERCOCET 5/325MG PO Q4H PRN, AND ZOFRAN 4MG IV Q8H PRN. HIS HOME MEDICATIONS OF ALLOPURINOL, LIPITOR, LASIX, COZAAR, NITROSTAT, LYRICA, AND SPIRONOLACTONE WERE RESUMED. WE WILL CONTINUE WITH CURRENT PLAN OF CARE TODAY. WILL CONTINUE TO FOLLOW PATIENT. OTHERWISE, WE WILL FOLLOW-UP WITH AM LABS AND CONTINUE TO MONITOR. TIME SPENT ON CLINICAL ASSESSMENT, REVIWING LABS AND IMAGING, DECISION MAKING, AND DOCUMENTATION GREATER THAN 45 MINUTES. - Past Medical Family Social History Past Med/Fam/Surg Hx: No changes since H&P Allergies: Allergies No Known Drug Allergies Allergy (Verified 04/28/19 08:16) - Review of Systems ROS: No change since H&P - Vital Signs and I&O's Vital Signs: Temperature 98.3 F Pulse Rate [Left Apical] 69 Pulse Rate 82 Respiratory Rate 16 Blood Pressure [Left Arm] 155/85 Blood Pressure 108/56 O2 Sat by Pulse Oximetry 85 Intake and Output: Intake & Output 10/03/21 10/04/21 10/05/21 10/06/21 11:59 11:59 11:59 11:59 Intake Total 1052 / 1052 1664 / 1664 1556 / 1556 2365 / 2365 Output Total 978 / 978 1650 / 1650 1028 / 1028 2032 / 2032 Balance 74 / 74 14 528 / 528 332 / 332 - Physical Exam Oriented: Normal Eyes: Normal Ear: Normal Nose: Normal Throat: Normal Respiratory: Normal (chest tube in place with clear lung field ..), Generalized Cardiovascular: Normal : Normal Auscultation: Bowel Sounds: Normal Palpation: Normal Tenderness: Normal Skin: Normal Musculoskeletal: Normal Psychiatric: Normal Mood Description: Calm Affect: Normal Speech Pattern: Clear, Appropriate - Laboratory and Diagnostics Result Diagrams: 10/06/21 05:30 10/06/21 05:30 Labs: Laboratory WBC 3.6 X10^3/uL (3.6-10.0) 10/06/21 05:30 RBC 3.62 X10^6/uL (4.7-6.0) L 10/06/21 05:30 Hgb 10.4 g/dL (13.5-18.0) L 10/06/21 05:30 Hct 30.7 % (42.0-54.0) L 10/06/21 05:30 MCV 84.9 fL (80.0-100.0) 10/06/21 05:30 MCH 28.7 pg (27.0-34.0) 10/06/21 05:30 MCHC 33.8 g/dL (33.0-35.0) 10/06/21 05:30 RDW 13.1 % (11.6-16.5) 10/06/21 05:30 Plt Count 237 X10^3/uL (150.0-450.0) 10/06/21 05:30 MPV 8.3 fL (7.4-11.0) 10/06/21 05:30 Neut % (Auto) 58.6 % (42.0-75.0) 10/06/21 05:30 Lymph % (Auto) 19.9 % (21.0-51.0) L 10/06/21 05:30 [place] % (Auto) 13.2 % (0.0-13.0) H 10/06/21 05:30 Eos % (Auto) 7.0 % (0.9-2.9) H 10/06/21 05:30 Baso % (Auto) 1.3 % (0.2-1.0) H 10/06/21 05:30 Neut # (Auto) 2.1 x10^3/uL (2.2-4.8) L 10/06/21 05:30 Lymph # (Auto) 0.7 X10^3/uL (1.3-2.9) L 10/06/21 05:30 [place] # (Auto) 0.5 x10^3/uL (0.3-0.8) 10/06/21 05:30 Eos # (Auto) 0.3 x10^3/uL (0.0-0.2) H 10/06/21 05:30 Baso # (Auto) 0.0 X10^3/uL (0.0-0.1) 10/06/21 05:30 Absolute Nucleated RBC 0.0 /100WBC 10/06/21 05:30 Sodium 138 mmol/L (136-145) 10/06/21 05:30 Corrected Sodium TNP 10/06/21 05:30 Potassium 4.1 mmol/L (3.5-5.1) 10/06/21 05:30 Chloride 99 mmol/L (98-107) 10/06/21 05:30 Carbon Dioxide 32.1 mmol/L (21-32) H 10/06/21 05:30 BUN 15 mg/dL (7-18) 10/06/21 05:30 Creatinine 1.40 mg/dL (0.70-1.30) H 10/06/21 05:30 Est GFR (MDRD) Af Amer > 60 (>60) 10/06/21 05:30 Est GFR (MDRD) Non-Af 54 (>60) L 10/06/21 05:30 Glucose 98 mg/dL (65-99) 10/06/21 05:30 Calcium 8.1 mg/dL (8.5-10.1) L 10/06/21 05:30 Corrected Calcium 9.3 mg/dL (8.5-10.1) 10/06/21 05:30 Total Bilirubin 0.20 mg/dL (0.2-1.0) 10/06/21 05:30 AST 20 Units/L (15-37) 10/06/21 05:30 ALT 7 Units/L (12-78) L 10/06/21 05:30 Alkaline Phosphatase 45 Units/L (46-116) L 10/06/21 05:30 Creatine Kinase 173 Units/L (39-308) 10/02/21 07:55 Troponin I High Sens 20.6 ng/L (4.0-60.0) 10/02/21 07:55 B-Natriuretic Peptide 124 pg/mL (0-79) H 10/02/21 07:55 Total Protein 6.7 g/dL (6.4-8.2) 10/06/21 05:30 Albumin 2.5 g/dL (3.4-5.0) L 10/06/21 05:30 Globulin 4.2 g/dL (2.5-4.5) 10/06/21 05:30 Albumin/Globulin Ratio 0.6 Ratio (1.1-2.1) L 10/06/21 05:30 SARS CoV-2 RNA Rapid MIGUEL Negative (NEGATIVE) 10/02/21 07:45 - Plan (1) Tension pneumothorax Status: Acute Plan: CHEST TUBE, 1/2NS AT KVO, ANCEF 1G IV Q8H, PROVENTIL NEBS Q2H PRN, DILAUDID 1-2MG IV Q4H PRN PAIN, PERCOCET 5/325MG PO Q4H PRN, AND ZOFRAN 4MG IV Q8H PRN. RESUME HOME MEDS. MONITOR LABS AND CHEST XRAY (2) Respiratory distress Status: Acute (3) CHF (congestive heart failure) Status: Chronic Qualifiers: Heart failure chronicity: acute on chronic (4) HTN (hypertension) Status: Chronic Qualifiers: Hypertension type: primary hypertension Qualified Code(s): I10 - Essential (primary) hypertension
[2021-10-06] MEDS: CIPRO TAB 500 MG PO SCH ×2 (16:21→20:21)
[2021-10-06] MEDS: LIPITOR TAB 40 MG PO SCH (20:21)
[2021-10-07 05:01] LABS: BASOPHILS % (AUTO) 0.9 % (0.2-1.0); EOSINOPHILS # (AUTO) 0.3 x10^3/uL (0.0-0.2); EOSINOPHILS % (AUTO) 9.7 % (0.9-2.9); HEMATOCRIT 29.3 % (42.0-54.0); HEMOGLOBIN 10.1 g/dL (13.5-18.0); LYMPHOCYTES # (AUTO) 0.7 X10^3/uL (1.3-2.9); LYMPHOCYTES % (AUTO) 22.6 % (21.0-51.0); MEAN CORPUSCULAR HGB CONC 34.3 g/dL (33.0-35.0); MEAN CORPUSCULAR VOLUME 84.6 fL (80.0-100.0); MEAN PLATELET VOLUME 8.1 fL (7.4-11.0); MONOCYTES # (AUTO) 0.4 x10^3/uL (0.3-0.8); MONOCYTES % (AUTO) 14.5 % (0.0-13.0); NEUTROPHILS # (AUTO) 1.5 x10^3/uL (2.2-4.8); NEUTROPHILS % (AUTO) 52.3 % (42.0-75.0); RED BLOOD COUNT 3.47 X10^6/uL (4.7-6.0); RED CELL DISTRIBUTION WIDTH 13.3 % (11.6-16.5)
[2021-10-07 05:19] LABS: ALANINE AMINOTRANSFERASE 12 Units/L (12-78); ALBUMIN 2.4 g/dL (3.4-5.0); ALKALINE PHOSPHATASE 48 Units/L (46-116); ASPARTATE AMINO TRANSFERASE 22 Units/L (15-37); BLOOD UREA NITROGEN 17 mg/dL (7-18); CALCIUM 7.9 mg/dL (8.5-10.1); CARBON DIOXIDE 32.1 mmol/L (21-32); CHLORIDE 101 mmol/L (98-107); COR CA(FOR HYPOALB) 9.2 mg/dL (8.5-10.1); SODIUM 139 mmol/L (136-145); TOTAL PROTEIN 6.5 g/dL (6.4-8.2); eGFR NON BLACK RACES 59 (>60)
--- NOTE | 2021-10-07 06:03 | RAD ---
HISTORYSOB HX: HTN SX: ORTHOSTUDYCHEST, 1 [id number]/2022FINDINGSThe trachea is midline. Right chest tube unchanged. Small right pneumothorax increased from prior study. The cardiac silhouette is unremarkable. The lungs are clear without focal infiltrate or effusion. The bony thorax is unremarkable.IMPRESSIONSmall right pneumothorax increased in size from previous 10/06/2021. Right chest tube unchanged..Electronically signed by: Jorje Brunson (Oct 07, 2021 06:02:05)
[2021-10-07] MEDS ORDERED: STERILE WATER IRRIGATION IR ONE (07:47)
[2021-10-07] MEDS: CIPRO TAB 500 MG PO SCH ×2 (08:33→20:43)
[2021-10-07] MEDS: ALDACTONE TAB 25 MG PO SCH (08:33)
[2021-10-07] MEDS: ZYLOPRIM PO SCH (08:33)
[2021-10-07] MEDS: LYRICA CAP 75 mg PO SCH ×2 (08:34→20:44)
[2021-10-07] MEDS: COREG TAB 12.5 MG PO SCH ×2 (08:34→20:43)
[2021-10-07] MEDS: COZAAR PO SCH (08:34)
[2021-10-07] MEDS: LASIX PO SCH ×2 (08:34→20:42)
[2021-10-07] MEDS: PERCOCET TAB 5/325 MG PO PRN ×2 (08:37→20:45)
--- NOTE | 2021-10-07 09:41 | RAD ---
HISTORYchest tube placementSTUDYCHEST, 1 VIEWCOMPARISONRadiograph from earlier same dayFINDINGSLINES AND TUBES: Right thoracostomy tube is stable.HEART/ PULMONARY VASCULATURE: No significant abnormalityLUNGS/ PLEURA: There is improved right pneumothorax. Tiny right apical pneumothorax remains. Lungs remain clear of consolidation. No sizable pleural effusion. No pneumothoraxOTHER: NoneIMPRESSIONImproved right pneumothorax with persistent tiny right apical pneumothorax. Right chest tube remains in place.Electronically signed by: Jon Dolan (Oct 07, 2021 09:40:00)
--- NOTE | 2021-10-07 09:49 | DR.PROGNOT ---
Hospital Progress Notes - Progress Note for Day of: Progress Note Date: 10/07/21 - Chief Complaint Chief Complaint: comfortable . no chest pain , no SOB. repeated chest X ray showed small pneumothorax .. water was added up to 20 cm . repeated chest xray showed clear lung may be very small residual pneumothorax . - Past Medical Family Social History Past Med/Fam/Surg Hx: No changes since H&P Allergies: Allergies No Known Drug Allergies Allergy (Verified 04/28/19 08:16) - Review Of Systems ROS: No change since H&P - Vital Signs Vital Signs: Temperature 98.0 F Pulse Rate [Left Apical] 69 Pulse Rate 65 Respiratory Rate 20 Blood Pressure [Left Arm] 155/85 Blood Pressure 117/70 O2 Sat by Pulse Oximetry 94 - Physical Exam Oriented: Normal Eyes: Normal Ear: Normal Nose: Normal Throat: Normal Respiratory: Normal (chest tube in place with clear lung field ..), Generalized Cardiovascular: Normal : Normal GI:Auscultation: Normal GI:Palpation: Normal GI: Tenderness: Normal Skin: Normal Musculoskeletal: Normal Psychiatric: Normal Mood Description: Calm Affect: Normal Speech Pattern: Clear, Appropriate - Laboratory and Diagnostics Result Diagrams: 10/07/21 04:20 10/07/21 04:20 Labs: Laboratory WBC 3.0 X10^3/uL (3.6-10.0) L 10/07/21 04:20 RBC 3.47 X10^6/uL (4.7-6.0) L 10/07/21 04:20 Hgb 10.1 g/dL (13.5-18.0) L 10/07/21 04:20 Hct 29.3 % (42.0-54.0) L 10/07/21 04:20 MCV 84.6 fL (80.0-100.0) 10/07/21 04:20 MCH 29.0 pg (27.0-34.0) 10/07/21 04:20 MCHC 34.3 g/dL (33.0-35.0) 10/07/21 04:20 RDW 13.3 % (11.6-16.5) 10/07/21 04:20 Plt Count 262 X10^3/uL (150.0-450.0) 10/07/21 04:20 MPV 8.1 fL (7.4-11.0) 10/07/21 04:20 Neut % (Auto) 52.3 % (42.0-75.0) 10/07/21 04:20 Lymph % (Auto) 22.6 % (21.0-51.0) 10/07/21 04:20 [place] % (Auto) 14.5 % (0.0-13.0) H 10/07/21 04:20 Eos % (Auto) 9.7 % (0.9-2.9) H 10/07/21 04:20 Baso % (Auto) 0.9 % (0.2-1.0) 10/07/21 04:20 Neut # (Auto) 1.5 x10^3/uL (2.2-4.8) L 10/07/21 04:20 Lymph # (Auto) 0.7 X10^3/uL (1.3-2.9) L 10/07/21 04:20 [place] # (Auto) 0.4 x10^3/uL (0.3-0.8) 10/07/21 04:20 Eos # (Auto) 0.3 x10^3/uL (0.0-0.2) H 10/07/21 04:20 Baso # (Auto) 0.0 X10^3/uL (0.0-0.1) 10/07/21 04:20 Absolute Nucleated RBC 0.1 /100WBC 10/07/21 04:20 Sodium 139 mmol/L (136-145) 10/07/21 04:20 Corrected Sodium TNP 10/07/21 04:20 Potassium 4.2 mmol/L (3.5-5.1) 10/07/21 04:20 Chloride 101 mmol/L (98-107) 10/07/21 04:20 Carbon Dioxide 32.1 mmol/L (21-32) H 10/07/21 04:20 BUN 17 mg/dL (7-18) 10/07/21 04:20 Creatinine 1.30 mg/dL (0.70-1.30) 10/07/21 04:20 Est GFR (MDRD) Af Amer > 60 (>60) 10/07/21 04:20 Est GFR (MDRD) Non-Af 59 (>60) 10/07/21 04:20 Glucose 91 mg/dL (65-99) 10/07/21 04:20 Calcium 7.9 mg/dL (8.5-10.1) L 10/07/21 04:20 Corrected Calcium 9.2 mg/dL (8.5-10.1) 10/07/21 04:20 Total Bilirubin 0.10 mg/dL (0.2-1.0) L 10/07/21 04:20 AST 22 Units/L (15-37) 10/07/21 04:20 ALT 12 Units/L (12-78) 10/07/21 04:20 Alkaline Phosphatase 48 Units/L (46-116) 10/07/21 04:20 Creatine Kinase 173 Units/L (39-308) 10/02/21 07:55 Troponin I High Sens 20.6 ng/L (4.0-60.0) 10/02/21 07:55 B-Natriuretic Peptide 124 pg/mL (0-79) H 10/02/21 07:55 Total Protein 6.5 g/dL (6.4-8.2) 10/07/21 04:20 Albumin 2.4 g/dL (3.4-5.0) L 10/07/21 04:20 Globulin 4.1 g/dL (2.5-4.5) 10/07/21 04:20 Albumin/Globulin Ratio 0.6 Ratio (1.1-2.1) L 10/07/21 04:20 SARS CoV-2 RNA Rapid MIGUEL Negative (NEGATIVE) 10/02/21 07:45 - Assessment and Plan 1: spontaneous RT pneumothorax S/P insertion of chest tube . Rt base atelectasis. same plan .incentive spirometer , OOB. repeat X Ray in am .. - Problem Patient Problems: Patient Problems Tension pneumothorax (Acute) J93.0 Respiratory distress (Acute) R06.03 HTN (hypertension) (Chronic) I10 CHF (congestive heart failure) (Chronic) I50.9
--- NOTE | 2021-10-07 13:06 | PCM.PROG ---
Progress Note Progress Note for Day of Date of Exam: 10/07/21 Subjective Subjective: IS CURRENTLY INPATIENT STATUS FOR TREATMENT OF A SPONTANEOUS PNEUMOTHORAX AND RESPIRATORY DISTRESS. HE HAS A PMH OF CHF AND HTN. TODAY, HE IS ALERT AND ORIENTED, LYING IN BED ON MORNING ROUNDS. HE DENIES CURRENT COMPLAINTS THIS MORNING. ON EXAMINATION, HEART IS REGULAR IN RATE AND RHYTHM. BILATERAL LUNGS NOTED WITH DIMINISHED LUNG SOUNDS THROUGHOUT. CHEST TUBE NOTED TO RIGHT SIDE CHEST WALL. ABDOMEN IS ROUND, SOFT, AND NON-TENDER WITH NORMAL BOWEL SOUNDS NOTED IN ALL QUADRANTS. HIS VITALS THIS MORNING ARE: 98.3-75-16-95%-106/88. LABS WERE OBTAINED. WBC 3.6, RBC 3.62, HGB 10.4, HCT 30.7, SODIUM 138, POTASSIUM 4.1, CHLORIDE 99, CARBON DIOXIDE 32.1, BUN 15, CREATININE 1.40, GLUCOSE 98, CALCIUM 8.1, AST 20, ALT 7, ALK PHOS 45, TOTAL PROTEIN 6.7, ALBUMIN 2.5. CHEST XRAY REPEATED AND REVEALED: Heart size remains normal. Brooke are normal. Lungs are well inflated and free of acute infiltrates. No pleural effusions are identified. There is a right chest tube in place. No definite pneumothorax is identified. Minimal subcutaneous emphysema is present along the right lower lateral chest wall. Bony thorax is unremarkable. HE IS CURRENTLY RECEIVING 1/2NS AT KVO, ANCEF 1G IV Q8H, PROVENTIL NEBS Q2H PRN, DILAUDID 1-2MG IV Q4H PRN PAIN, PERCOCET 5/325MG PO Q4H PRN, AND ZOFRAN 4MG IV Q8H PRN. HIS HOME MEDICATIONS OF ALLOPURINOL, LIPITOR, LASIX, COZAAR, NITROSTAT, LYRICA, AND SPIRONOLACTONE WERE RESUMED. WE WILL CONTINUE WITH CURRENT PLAN OF CARE TODAY. WILL CONTINUE TO FOLLOW PATIENT. OTHERWISE, WE WILL FOLLOW-UP WITH AM LABS AND CONTINUE TO MONITOR. TIME SPENT ON CLINICAL ASSESSMENT, REVIWING LABS AND IMAGING, DECISION MAKING, AND DOCUMENTATION GREATER THAN 45 MINUTES. The patient is resting comfortably this morning with no new complaints. He does not report any shortness of breath and no problems through the night. Chest x- ray today shows the pneumothorax continues to improved and is smaller compared to yesterday. General surgery is monitoring this. Past Medical Family Social History Past Med/Fam/Surg Hx: No changes since H&P Allergies: Allergies No Known Drug Allergies Allergy (Verified 04/28/19 08:16) Review of Systems ROS: No change since H&P Vital Signs and I&O's Vital Signs: Temperature 98.0 F Pulse Rate [Left Apical] 69 Pulse Rate 79 Respiratory Rate 30 Blood Pressure [Left Arm] 155/85 Blood Pressure 139/72 O2 Sat by Pulse Oximetry 98 Intake and Output: Intake & Output 10/05/21 10/06/21 10/07/21 10/08/21 11:59 11:59 11:59 11:59 Intake Total 1556 / 1556 2365 / 2365 1526 / 1526 Output Total 1028 / 1028 2033 / 2033 2614 / 2614 Balance 528 / 528 332 / 332 -1088 / -1088 Physical Exam Oriented: Normal Eyes: Normal Ear: Normal Nose: Normal Throat: Normal Respiratory: Normal (chest tube in place with clear lung field ..) and Generalized Cardiovascular: Normal : Normal Auscultation: Bowel Sounds: Normal Tenderness: Normal Skin: Normal Musculoskeletal: Normal Psychiatric: Normal Mood Description: Calm Affect: Normal Speech Pattern: Clear and Appropriate Laboratory and Diagnostics Result Diagrams: 10/07/21 04:20 10/07/21 04:20 Labs: Laboratory WBC 3.0 X10^3/uL (3.6-10.0) L 10/07/21 04:20 RBC 3.47 X10^6/uL (4.7-6.0) L 10/07/21 04:20 Hgb 10.1 g/dL (13.5-18.0) L 10/07/21 04:20 Hct 29.3 % (42.0-54.0) L 10/07/21 04:20 MCV 84.6 fL (80.0-100.0) 10/07/21 04:20 MCH 29.0 pg (27.0-34.0) 10/07/21 04:20 MCHC 34.3 g/dL (33.0-35.0) 10/07/21 04:20 RDW 13.3 % (11.6-16.5) 10/07/21 04:20 Plt Count 262 X10^3/uL (150.0-450.0) 10/07/21 04:20 MPV 8.1 fL (7.4-11.0) 10/07/21 04:20 Neut % (Auto) 52.3 % (42.0-75.0) 10/07/21 04:20 Lymph % (Auto) 22.6 % (21.0-51.0) 10/07/21 04:20 [place] % (Auto) 14.5 % (0.0-13.0) H 10/07/21 04:20 Eos % (Auto) 9.7 % (0.9-2.9) H 10/07/21 04:20 Baso % (Auto) 0.9 % (0.2-1.0) 10/07/21 04:20 Neut # (Auto) 1.5 x10^3/uL (2.2-4.8) L 10/07/21 04:20 Lymph # (Auto) 0.7 X10^3/uL (1.3-2.9) L 10/07/21 04:20 [place] # (Auto) 0.4 x10^3/uL (0.3-0.8) 10/07/21 04:20 Eos # (Auto) 0.3 x10^3/uL (0.0-0.2) H 10/07/21 04:20 Baso # (Auto) 0.0 X10^3/uL (0.0-0.1) 10/07/21 04:20 Absolute Nucleated RBC 0.1 /100WBC 10/07/21 04:20 Sodium 139 mmol/L (136-145) 10/07/21 04:20 Corrected Sodium TNP 10/07/21 04:20 Potassium 4.2 mmol/L (3.5-5.1) 10/07/21 04:20 Chloride 101 mmol/L (98-107) 10/07/21 04:20 Carbon Dioxide 32.1 mmol/L (21-32) H 10/07/21 04:20 BUN 17 mg/dL (7-18) 10/07/21 04:20 Creatinine 1.30 mg/dL (0.70-1.30) 10/07/21 04:20 Est GFR (MDRD) Af Amer > 60 (>60) 10/07/21 04:20 Est GFR (MDRD) Non-Af 59 (>60) 10/07/21 04:20 Glucose 91 mg/dL (65-99) 10/07/21 04:20 Calcium 7.9 mg/dL (8.5-10.1) L 10/07/21 04:20 Corrected Calcium 9.2 mg/dL (8.5-10.1) 10/07/21 04:20 Total Bilirubin 0.10 mg/dL (0.2-1.0) L 10/07/21 04:20 AST 22 Units/L (15-37) 10/07/21 04:20 ALT 12 Units/L (12-78) 10/07/21 04:20 Alkaline Phosphatase 48 Units/L (46-116) 10/07/21 04:20 Creatine Kinase 173 Units/L (39-308) 10/02/21 07:55 Troponin I High Sens 20.6 ng/L (4.0-60.0) 10/02/21 07:55 B-Natriuretic Peptide 124 pg/mL (0-79) H 10/02/21 07:55 Total Protein 6.5 g/dL (6.4-8.2) 10/07/21 04:20 Albumin 2.4 g/dL (3.4-5.0) L 10/07/21 04:20 Globulin 4.1 g/dL (2.5-4.5) 10/07/21 04:20 Albumin/Globulin Ratio 0.6 Ratio (1.1-2.1) L 10/07/21 04:20 SARS CoV-2 RNA Rapid MIGUEL Negative (NEGATIVE) 10/02/21 07:45 Plan (1) Tension pneumothorax: Status: Acute Plan: CHEST TUBE, 1/2NS AT KVO, ANCEF 1G IV Q8H, PROVENTIL NEBS Q2H PRN, DILAUDID 1-2MG IV Q4H PRN PAIN, PERCOCET 5/325MG PO Q4H PRN, AND ZOFRAN 4MG IV Q8H PRN. RESUME HOME MEDS. MONITOR LABS AND CHEST XRAY (2) Respiratory distress: Status: Acute (3) CHF (congestive heart failure): Status: Chronic Qualifiers: Heart failure chronicity: acute on chronic (4) HTN (hypertension): Status: Chronic Qualifiers: Hypertension type: primary hypertension Qualified Code(s): I10 - Essential (primary) hypertension Narrative Support Text: Blood pressure is stable.
[2021-10-07] MEDS: LIPITOR TAB 40 MG PO SCH (20:43)
[2021-10-08 04:59] LABS: BASOPHILS % (AUTO) 1.5 % (0.2-1.0); EOSINOPHILS # (AUTO) 0.3 x10^3/uL (0.0-0.2); EOSINOPHILS % (AUTO) 9.4 % (0.9-2.9); HEMATOCRIT 29.7 % (42.0-54.0); LYMPHOCYTES # (AUTO) 0.8 X10^3/uL (1.3-2.9); MEAN CORPUSCULAR HEMOGLOBIN 28.6 pg (27.0-34.0); MEAN CORPUSCULAR HGB CONC 33.7 g/dL (33.0-35.0); MEAN CORPUSCULAR VOLUME 84.6 fL (80.0-100.0); MEAN PLATELET VOLUME 7.8 fL (7.4-11.0); MONOCYTES # (AUTO) 0.3 x10^3/uL (0.3-0.8); MONOCYTES % (AUTO) 11.4 % (0.0-13.0); NEUTROPHILS # (AUTO) 1.5 x10^3/uL (2.2-4.8); NEUTROPHILS % (AUTO) 51.7 % (42.0-75.0); RED BLOOD COUNT 3.51 X10^6/uL (4.7-6.0); RED CELL DISTRIBUTION WIDTH 13.2 % (11.6-16.5)
[2021-10-08 05:12] LABS: ALANINE AMINOTRANSFERASE 15 Units/L (12-78); ALBUMIN 2.5 g/dL (3.4-5.0); ALKALINE PHOSPHATASE 54 Units/L (46-116); ASPARTATE AMINO TRANSFERASE 28 Units/L (15-37); BLOOD UREA NITROGEN 21 mg/dL (7-18); CARBON DIOXIDE 33.8 mmol/L (21-32); CHLORIDE 100 mmol/L (98-107); COR CA(FOR HYPOALB) 9.2 mg/dL (8.5-10.1); CREATININE 1.48 mg/dL (0.70-1.30); SODIUM 138 mmol/L (136-145); TOTAL PROTEIN 6.9 g/dL (6.4-8.2); eGFR NON BLACK RACES 50 (>60)
--- NOTE | 2021-10-08 06:15 | RAD ---
HISTORYSOB HX: HTNSTUDYCHEST, 1 VIEWCOMPARISONThe 10/07/2021FINDINGSThe trachea is midline. Right thoracostomy tube unchanged. The cardiac silhouette is unremarkable. The lungs are clear without focal infiltrate or effusion. Tiny right apical pneumothorax unchanged. The bony thorax is unremarkable.IMPRESSIONStable portable chest.Electronically signed by: Jorje Brunson (Oct 08, 2021 06:13:57)
[2021-10-08] MEDS: PERCOCET TAB 5/325 MG PO PRN ×2 (07:51→20:20)
--- NOTE | 2021-10-08 08:27 | DR.PROGNOT ---
Hospital Progress Notes - Progress Note for Day of: Progress Note Date: 10/08/21 - Chief Complaint Chief Complaint: comfortable . no chest pain , no SOB. repeated chest X ray showed epanded lung with clear field . with small apical residual pneumothorax . normal lab work and afebrile .. - Past Medical Family Social History Past Med/Fam/Surg Hx: No changes since H&P Allergies: Allergies No Known Drug Allergies Allergy (Verified 04/28/19 08:16) - Review Of Systems ROS: No change since H&P - Vital Signs Vital Signs: Temperature 98.4 F Pulse Rate [Left Apical] 69 Pulse Rate 63 Respiratory Rate 17 Blood Pressure [Left Arm] 155/85 Blood Pressure 118/64 O2 Sat by Pulse Oximetry 96 - Physical Exam Oriented: Normal Eyes: Normal Ear: Normal Nose: Normal Throat: Normal Respiratory: Normal (chest tube in place with clear lung field ..), Generalized Cardiovascular: Normal : Normal GI:Auscultation: Normal GI:Palpation: Normal GI: Tenderness: Normal Skin: Normal Musculoskeletal: Normal Psychiatric: Normal Mood Description: Calm Affect: Normal Speech Pattern: Clear, Appropriate - Laboratory and Diagnostics Result Diagrams: 10/08/21 04:40 10/08/21 04:40 Labs: Laboratory WBC 3.0 X10^3/uL (3.6-10.0) L 10/08/21 04:40 RBC 3.51 X10^6/uL (4.7-6.0) L 10/08/21 04:40 Hgb 10.0 g/dL (13.5-18.0) L 10/08/21 04:40 Hct 29.7 % (42.0-54.0) L 10/08/21 04:40 MCV 84.6 fL (80.0-100.0) 10/08/21 04:40 MCH 28.6 pg (27.0-34.0) 10/08/21 04:40 MCHC 33.7 g/dL (33.0-35.0) 10/08/21 04:40 RDW 13.2 % (11.6-16.5) 10/08/21 04:40 Plt Count 296 X10^3/uL (150.0-450.0) 10/08/21 04:40 MPV 7.8 fL (7.4-11.0) 10/08/21 04:40 Neut % (Auto) 51.7 % (42.0-75.0) 10/08/21 04:40 Lymph % (Auto) 26.0 % (21.0-51.0) 10/08/21 04:40 [place] % (Auto) 11.4 % (0.0-13.0) 10/08/21 04:40 Eos % (Auto) 9.4 % (0.9-2.9) H 10/08/21 04:40 Baso % (Auto) 1.5 % (0.2-1.0) H 10/08/21 04:40 Neut # (Auto) 1.5 x10^3/uL (2.2-4.8) L 10/08/21 04:40 Lymph # (Auto) 0.8 X10^3/uL (1.3-2.9) L 10/08/21 04:40 [place] # (Auto) 0.3 x10^3/uL (0.3-0.8) 10/08/21 04:40 Eos # (Auto) 0.3 x10^3/uL (0.0-0.2) H 10/08/21 04:40 Baso # (Auto) 0.0 X10^3/uL (0.0-0.1) 10/08/21 04:40 Absolute Nucleated RBC 0.0 /100WBC 10/08/21 04:40 Sodium 138 mmol/L (136-145) 10/08/21 04:40 Corrected Sodium TNP 10/08/21 04:40 Potassium 4.9 mmol/L (3.5-5.1) 10/08/21 04:40 Chloride 100 mmol/L (98-107) 10/08/21 04:40 Carbon Dioxide 33.8 mmol/L (21-32) H 10/08/21 04:40 BUN 21 mg/dL (7-18) H 10/08/21 04:40 Creatinine 1.48 mg/dL (0.70-1.30) H 10/08/21 04:40 Est GFR (MDRD) Af Amer > 60 (>60) 10/08/21 04:40 Est GFR (MDRD) Non-Af 50 (>60) L 10/08/21 04:40 Glucose 89 mg/dL (65-99) 10/08/21 04:40 Calcium 8.0 mg/dL (8.5-10.1) L 10/08/21 04:40 Corrected Calcium 9.2 mg/dL (8.5-10.1) 10/08/21 04:40 Total Bilirubin 0.20 mg/dL (0.2-1.0) 10/08/21 04:40 AST 28 Units/L (15-37) 10/08/21 04:40 ALT 15 Units/L (12-78) 10/08/21 04:40 Alkaline Phosphatase 54 Units/L (46-116) 10/08/21 04:40 Creatine Kinase 173 Units/L (39-308) 10/02/21 07:55 Troponin I High Sens 20.6 ng/L (4.0-60.0) 10/02/21 07:55 B-Natriuretic Peptide 124 pg/mL (0-79) H 10/02/21 07:55 Total Protein 6.9 g/dL (6.4-8.2) 10/08/21 04:40 Albumin 2.5 g/dL (3.4-5.0) L 10/08/21 04:40 Globulin 4.4 g/dL (2.5-4.5) 10/08/21 04:40 Albumin/Globulin Ratio 0.6 Ratio (1.1-2.1) L 10/08/21 04:40 SARS CoV-2 RNA Rapid MIGUEL Negative (NEGATIVE) 10/02/21 07:45 - Assessment and Plan 1: spontaneous RT pneumothorax S/P insertion of chest tube . Rt base atelectasis. same plan .incentive spirometer , OOB. repeat X Ray in am .. not ready to remove chest tube .. - Problem Patient Problems: Patient Problems Tension pneumothorax (Acute) J93.0 Respiratory distress (Acute) R06.03 HTN (hypertension) (Chronic) I10 CHF (congestive heart failure) (Chronic) I50.9
[2021-10-08] MEDS: ALDACTONE TAB 25 MG PO SCH (08:33)
[2021-10-08] MEDS: ZYLOPRIM PO SCH (08:33)
[2021-10-08] MEDS: LYRICA CAP 75 mg PO SCH ×2 (08:33→20:20)
[2021-10-08] MEDS: COZAAR PO SCH (08:33)
[2021-10-08] MEDS: COREG TAB 12.5 MG PO SCH ×2 (08:34→20:18)
[2021-10-08] MEDS: CIPRO TAB 500 MG PO SCH ×2 (08:34→20:18)
[2021-10-08] MEDS: LASIX PO SCH ×2 (08:34→20:19)
--- NOTE | 2021-10-08 16:05 | PCM.PROG ---
Progress Note Progress Note for Day of Date of Exam: 10/08/21 Subjective Subjective: IS CURRENTLY INPATIENT STATUS FOR TREATMENT OF A SPONTANEOUS PNEUMOTHORAX AND RESPIRATORY DISTRESS. HE HAS A PMH OF CHF AND HTN. TODAY, HE IS ALERT AND ORIENTED, LYING IN BED ON MORNING ROUNDS. HE DENIES CURRENT COMPLAINTS THIS MORNING. ON EXAMINATION, HEART IS REGULAR IN RATE AND RHYTHM. BILATERAL LUNGS NOTED WITH DIMINISHED LUNG SOUNDS THROUGHOUT. CHEST TUBE NOTED TO RIGHT SIDE CHEST WALL. ABDOMEN IS ROUND, SOFT, AND NON-TENDER WITH NORMAL BOWEL SOUNDS NOTED IN ALL QUADRANTS. HIS VITALS THIS MORNING ARE: 98.3-75-16-95%-106/88. LABS WERE OBTAINED. WBC 3.6, RBC 3.62, HGB 10.4, HCT 30.7, SODIUM 138, POTASSIUM 4.1, CHLORIDE 99, CARBON DIOXIDE 32.1, BUN 15, CREATININE 1.40, GLUCOSE 98, CALCIUM 8.1, AST 20, ALT 7, ALK PHOS 45, TOTAL PROTEIN 6.7, ALBUMIN 2.5. CHEST XRAY REPEATED AND REVEALED: Heart size remains normal. [place]oke are normal. Lungs are well inflated and free of acute infiltrates. No pleural effusions are identified. There is a right chest tube in place. No definite pneumothorax is identified. Minimal subcutaneous emphysema is present along the right lower lateral chest wall. Bony thorax is unremarkable. HE IS CURRENTLY RECEIVING 1/2NS AT KVO, ANCEF 1G IV Q8H, PROVENTIL NEBS Q2H PRN, DILAUDID 1-2MG IV Q4H PRN PAIN, PERCOCET 5/325MG PO Q4H PRN, AND ZOFRAN 4MG IV Q8H PRN. HIS HOME MEDICATIONS OF ALLOPURINOL, LIPITOR, LASIX, COZAAR, NITROSTAT, LYRICA, AND SPIRONOLACTONE WERE RESUMED. WE WILL CONTINUE WITH CURRENT PLAN OF CARE TODAY. WILL CONTINUE TO FOLLOW PATIENT. OTHERWISE, WE WILL FOLLOW-UP WITH AM LABS AND CONTINUE TO MONITOR. TIME SPENT ON CLINICAL ASSESSMENT, REVIWING LABS AND IMAGING, DECISION MAKING, AND DOCUMENTATION GREATER THAN 45 MINUTES. Saturday The patient is resting comfortably this morning with no new complaints. He does not report any shortness of breath and no problems through the night. His vital signs remained stable this morning. Chest x-ray today shows the pneumothorax continues to improved and is smaller compared to yesterday. General surgery, Dr. Solorzano reports that he might be taking the chest tube out tomorrow. Repeat chest x-ray again for tomorrow morning. Continue current treatment. Past Medical Family Social History Past Med/Fam/Surg Hx: No changes since H&P Allergies: Allergies No Known Drug Allergies Allergy (Verified 04/28/19 08:16) Review of Systems ROS: No change since H&P Vital Signs and I&O's Vital Signs: Temperature 98.4 F Pulse Rate [Left Apical] 69 Pulse Rate 75 Respiratory Rate 24 Blood Pressure [Left Arm] 155/85 Blood Pressure 114/56 O2 Sat by Pulse Oximetry 94 Intake and Output: Intake & Output 10/06/21 10/07/21 10/08/21 10/09/21 11:59 11:59 11:59 11:59 Intake Total 2365 / 2365 1526 / 1526 1620 / 1620 Output Total 2033 / 2033 2614 / 2614 3075 / 3075 Balance 332 / 332 -1088 / -1088 -1455 / -1455 Physical Exam Oriented: Normal Eyes: Normal Ear: Normal Nose: Normal Throat: Normal Respiratory: Normal (chest tube in place with clear lung field ..) and Generalized Cardiovascular: Normal : Normal Auscultation: Bowel Sounds: Normal Tenderness: Normal Skin: Normal Musculoskeletal: Normal Psychiatric: Normal Mood Description: Calm Affect: Normal Speech Pattern: Clear and Appropriate Laboratory and Diagnostics Result Diagrams: 10/08/21 04:40 10/08/21 04:40 Labs: Laboratory WBC 3.0 X10^3/uL (3.6-10.0) L 10/08/21 04:40 RBC 3.51 X10^6/uL (4.7-6.0) L 10/08/21 04:40 Hgb 10.0 g/dL (13.5-18.0) L 10/08/21 04:40 Hct 29.7 % (42.0-54.0) L 10/08/21 04:40 MCV 84.6 fL (80.0-100.0) 10/08/21 04:40 MCH 28.6 pg (27.0-34.0) 10/08/21 04:40 MCHC 33.7 g/dL (33.0-35.0) 10/08/21 04:40 RDW 13.2 % (11.6-16.5) 10/08/21 04:40 Plt Count 296 X10^3/uL (150.0-450.0) 10/08/21 04:40 MPV 7.8 fL (7.4-11.0) 10/08/21 04:40 Neut % (Auto) 51.7 % (42.0-75.0) 10/08/21 04:40 Lymph % (Auto) 26.0 % (21.0-51.0) 10/08/21 04:40 [place] % (Auto) 11.4 % (0.0-13.0) 10/08/21 04:40 Eos % (Auto) 9.4 % (0.9-2.9) H 10/08/21 04:40 Baso % (Auto) 1.5 % (0.2-1.0) H 10/08/21 04:40 Neut # (Auto) 1.5 x10^3/uL (2.2-4.8) L 10/08/21 04:40 Lymph # (Auto) 0.8 X10^3/uL (1.3-2.9) L 10/08/21 04:40 [place] # (Auto) 0.3 x10^3/uL (0.3-0.8) 10/08/21 04:40 Eos # (Auto) 0.3 x10^3/uL (0.0-0.2) H 10/08/21 04:40 Baso # (Auto) 0.0 X10^3/uL (0.0-0.1) 10/08/21 04:40 Absolute Nucleated RBC 0.0 /100WBC 10/08/21 04:40 Sodium 138 mmol/L (136-145) 10/08/21 04:40 Corrected Sodium TNP 10/08/21 04:40 Potassium 4.9 mmol/L (3.5-5.1) 10/08/21 04:40 Chloride 100 mmol/L (98-107) 10/08/21 04:40 Carbon Dioxide 33.8 mmol/L (21-32) H 10/08/21 04:40 BUN 21 mg/dL (7-18) H 10/08/21 04:40 Creatinine 1.48 mg/dL (0.70-1.30) H 10/08/21 04:40 Est GFR (MDRD) Af Amer > 60 (>60) 10/08/21 04:40 Est GFR (MDRD) Non-Af 50 (>60) L 10/08/21 04:40 Glucose 89 mg/dL (65-99) 10/08/21 04:40 Calcium 8.0 mg/dL (8.5-10.1) L 10/08/21 04:40 Corrected Calcium 9.2 mg/dL (8.5-10.1) 10/08/21 04:40 Total Bilirubin 0.20 mg/dL (0.2-1.0) 10/08/21 04:40 AST 28 Units/L (15-37) 10/08/21 04:40 ALT 15 Units/L (12-78) 10/08/21 04:40 Alkaline Phosphatase 54 Units/L (46-116) 10/08/21 04:40 Creatine Kinase 173 Units/L (39-308) 10/02/21 07:55 Troponin I High Sens 20.6 ng/L (4.0-60.0) 10/02/21 07:55 B-Natriuretic Peptide 124 pg/mL (0-79) H 10/02/21 07:55 Total Protein 6.9 g/dL (6.4-8.2) 10/08/21 04:40 Albumin 2.5 g/dL (3.4-5.0) L 10/08/21 04:40 Globulin 4.4 g/dL (2.5-4.5) 10/08/21 04:40 Albumin/Globulin Ratio 0.6 Ratio (1.1-2.1) L 10/08/21 04:40 SARS CoV-2 RNA Rapid MIGUEL Negative (NEGATIVE) 10/02/21 07:45 Plan (1) Tension pneumothorax: Status: Acute Plan: CHEST TUBE, 1/2NS AT KVO, ANCEF 1G IV Q8H, PROVENTIL NEBS Q2H PRN, DILAUDID 1-2MG IV Q4H PRN PAIN, PERCOCET 5/325MG PO Q4H PRN, AND ZOFRAN 4MG IV Q8H PRN. RESUME HOME MEDS. MONITOR LABS AND CHEST XRAY (2) Respiratory distress: Status: Acute (3) CHF (congestive heart failure): Status: Chronic Qualifiers: Heart failure chronicity: acute on chronic (4) HTN (hypertension): Status: Chronic Qualifiers: Hypertension type: primary hypertension Qualified Code(s): I10 - Essent ial (primary) hypertension
[2021-10-08] MEDS: LIPITOR TAB 40 MG PO SCH (20:20)
[2021-10-09 05:22] LABS: BASOPHILS % (AUTO) 0.4 % (0.2-1.0); EOSINOPHILS # (AUTO) 0.3 x10^3/uL (0.0-0.2); EOSINOPHILS % (AUTO) 7.7 % (0.9-2.9); HEMATOCRIT 29.5 % (42.0-54.0); HEMOGLOBIN 10.1 g/dL (13.5-18.0); LYMPHOCYTES # (AUTO) 0.8 X10^3/uL (1.3-2.9); LYMPHOCYTES % (AUTO) 21.1 % (21.0-51.0); MEAN CORPUSCULAR HGB CONC 34.5 g/dL (33.0-35.0); MEAN PLATELET VOLUME 7.9 fL (7.4-11.0); MONOCYTES # (AUTO) 0.3 x10^3/uL (0.3-0.8); NEUTROPHILS # (AUTO) 2.3 x10^3/uL (2.2-4.8); NEUTROPHILS % (AUTO) 62.8 % (42.0-75.0); RED BLOOD COUNT 3.51 X10^6/uL (4.7-6.0); RED CELL DISTRIBUTION WIDTH 13.1 % (11.6-16.5); WHITE BLOOD COUNT 3.7 X10^3/uL (3.6-10.0)
[2021-10-09 05:40] LABS: ALANINE AMINOTRANSFERASE 15 Units/L (12-78); ALBUMIN 2.5 g/dL (3.4-5.0); ALKALINE PHOSPHATASE 60 Units/L (46-116); ASPARTATE AMINO TRANSFERASE 21 Units/L (15-37); BLOOD UREA NITROGEN 21 mg/dL (7-18); CALCIUM 8.2 mg/dL (8.5-10.1); CARBON DIOXIDE 31.6 mmol/L (21-32); CHLORIDE 100 mmol/L (98-107); COR CA(FOR HYPOALB) 9.4 mg/dL (8.5-10.1); CREATININE 1.65 mg/dL (0.70-1.30); SODIUM 139 mmol/L (136-145); TOTAL PROTEIN 6.8 g/dL (6.4-8.2); eGFR NON BLACK RACES 44 (>60)
--- NOTE | 2021-10-09 06:05 | RAD ---
HISTORYFollow-up pneumothoraxSTUDYChest AP [id number] t size is normal. Brooke are normal. Lungs are well inflated and free of acute infiltrates. Right chest tube remains in place. Now visualized is a small pneumothorax in the right costophrenic angle. No pleural effusions are identified. Bony thorax is unremarkable.IMPRESSIONSmall recurrent right pneumothorax visualized in the right costophrenic angleNo definite infiltrateElectronically signed by: MAGGI FRANCIS (Oct 09, 2021 06:04:00)
[2021-10-09] MEDS: CIPRO TAB 500 MG PO SCH ×2 (08:35→20:16)
[2021-10-09] MEDS: ALDACTONE TAB 25 MG PO SCH (08:35)
[2021-10-09] MEDS: COREG TAB 12.5 MG PO SCH ×2 (08:35→20:16)
[2021-10-09] MEDS: ZYLOPRIM PO SCH (08:36)
[2021-10-09] MEDS: LASIX PO SCH ×2 (08:36→20:16)
[2021-10-09] MEDS: LYRICA CAP 75 mg PO SCH ×2 (08:36→20:17)
[2021-10-09 09:29] VITALS: BMI 22.5
--- NOTE | 2021-10-09 11:53 | RAD ---
CHEST, 1 VIEWHISTORY: SOB AFTER CHEST TUBE CLAMPEDStudy: PA and lateral views of the chest.Comparison:October 09, 2021Findings:The cardiomediastinal silhouette is normal.No focal consolidations or effusions. Probable trace residual right pneumothorax. No significant change from prior. Osseous structures demonstrate no acute abnormality.IMPRESSION:1. No significant change in trace right pneumothorax.Electronically signed by: MINERVA TIMMONS (Oct 09, 2021 11:51:26)
--- NOTE | 2021-10-09 12:28 | PCM.PROG ---
Progress Note - Progress Note for Day of Date of Exam: 10/09/21 - Subjective Subjective: IS CURRENTLY INPATIENT STATUS FOR TREATMENT OF A SPONTANEOUS PNEUMOTHORAX AND RESPIRATORY DISTRESS. HE HAS A PMH OF CHF AND HTN. TODAY, HE IS ALERT AND ORIENTED, LYING IN BED ON MORNING ROUNDS. HE DENIES CURRENT COMPLAINTS THIS MORNING. ON EXAMINATION, HEART IS REGULAR IN RATE AND RHYTHM. BILATERAL LUNGS NOTED WITH DIMINISHED LUNG SOUNDS THROUGHOUT. CHEST TUBE NOTED TO RIGHT SIDE CHEST WALL. ABDOMEN IS ROUND, SOFT, AND NON-TENDER WITH NORMAL BOWEL SOUNDS NOTED IN ALL QUADRANTS. HIS VITALS THIS MORNING ARE: 98.2-75-22-96%-108/58. LABS WERE OBTAINED. WBC 3.7, RBC 3.51, HGB 10.1, HCT 29.5, SODIUM 139, BUN 21, CREATININE 1.65, GLUCOSE 106, CALCIUM 8.2, TOTAL BILI 0.10, AST 21, ALT 15, ALK PHOS 60, TOTAL PROTEIN 6.8, ALBUMIN 2.5. CHEST XRAY REPEATED AND REVEALED: Small recurrent right pneumothorax visualized in the right costophrenic angle. No definite infiltrate. CIPRO 500MG PO BID, PROVENTIL NEBS Q2H PRN, DILAUDID 1-2MG IV Q4H PRN PAIN, PERCOCET 5/325MG PO Q4H PRN, ZOFR AN 4MG IV Q8H PRN, MIL OF MAGNESIA 30ML PO Q12H PRN, COLACE 200MG PO Q12H PRN. HIS HOME MEDICATIONS OF ALLOPURINOL, LIPITOR, LASIX, COZAAR, NITROSTAT, LYRICA, AND SPIRONOLACTONE WERE RESUMED. WE WILL CONTINUE WITH CURRENT PLAN OF CARE TODAY. WILL CONTINUE TO FOLLOW PATIENT. OTHERWISE, WE WILL FOLLOW-UP WITH AM LABS AND CONTINUE TO MONITOR. TIME SPENT ON CLINICAL ASSESSMENT, REVIWING LABS AND IMAGING, DECISION MAKING, AND DOCUMENTATION GREATER THAN 45 MINUTES. - Past Medical Family Social History Past Med/Fam/Surg Hx: No changes since H&P Allergies: Allergies No Known Drug Allergies Allergy (Verified 04/28/19 08:16) - Review of Systems ROS: No change since H&P - Vital Signs and I&O's Vital Signs: Temperature 98.2 F Pulse Rate [Left Apical] 69 Pulse Rate 61 Respiratory Rate 19 Blood Pressure [Left Arm] 155/85 Blood Pressure 111/58 O2 Sat by Pulse Oximetry 98 Intake and Output: Intake & Output 10/07/21 10/08/21 10/09/21 10/10/21 11:59 11:59 11:59 11:59 Intake Total 1526 / 1526 1620 / 1620 700 / 700 Output Total 2614 / 2614 3075 / 3075 2305 / 2305 Balance -1088 / -1088 -1455 / -1455 -1605 / -1605 - Physical Exam Oriented: Normal Eyes: Normal Ear: Normal Nose: Normal Throat: Normal Respiratory: Normal (chest tube in place with clear lung field ..), Generalized Cardiovascular: Normal : Normal Auscultation: Bowel Sounds: Normal Palpation: Normal Tenderness: Normal Skin: Normal Musculoskeletal: Normal Psychiatric: Normal Mood Description: Calm Affect: Normal Speech Pattern: Clear, Appropriate - Laboratory and Diagnostics Result Diagrams: 10/09/21 04:44 10/09/21 04:44 Labs: Laboratory WBC 3.7 X10^3/uL (3.6-10.0) 10/09/21 04:44 RBC 3.51 X10^6/uL (4.7-6.0) L 10/09/21 04:44 Hgb 10.1 g/dL (13.5-18.0) L 10/09/21 04:44 Hct 29.5 % (42.0-54.0) L 10/09/21 04:44 MCV 84.0 fL (80.0-100.0) 10/09/21 04:44 MCH 29.0 pg (27.0-34.0) 10/09/21 04:44 MCHC 34.5 g/dL (33.0-35.0) 10/09/21 04:44 RDW 13.1 % (11.6-16.5) 10/09/21 04:44 Plt Count 303 X10^3/uL (150.0-450.0) 10/09/21 04:44 MPV 7.9 fL (7.4-11.0) 10/09/21 04:44 Neut % (Auto) 62.8 % (42.0-75.0) 10/09/21 04:44 Lymph % (Auto) 21.1 % (21.0-51.0) 10/09/21 04:44 [place] % (Auto) 8.0 % (0.0-13.0) 10/09/21 04:44 Eos % (Auto) 7.7 % (0.9-2.9) H 10/09/21 04:44 Baso % (Auto) 0.4 % (0.2-1.0) 10/09/21 04:44 Neut # (Auto) 2.3 x10^3/uL (2.2-4.8) 10/09/21 04:44 Lymph # (Auto) 0.8 X10^3/uL (1.3-2.9) L 10/09/21 04:44 [place] # (Auto) 0.3 x10^3/uL (0.3-0.8) 10/09/21 04:44 Eos # (Auto) 0.3 x10^3/uL (0.0-0.2) H 10/09/21 04:44 Baso # (Auto) 0.0 X10^3/uL (0.0-0.1) 10/09/21 04:44 Absolute Nucleated RBC 0.0 /100WBC 10/09/21 04:44 Sodium 139 mmol/L (136-145) 10/09/21 04:44 Corrected Sodium TNP 10/09/21 04:44 Potassium 3.8 mmol/L (3.5-5.1) 10/09/21 04:44 Chloride 100 mmol/L (98-107) 10/09/21 04:44 Carbon Dioxide 31.6 mmol/L (21-32) 10/09/21 04:44 BUN 21 mg/dL (7-18) H 10/09/21 04:44 Creatinine 1.65 mg/dL (0.70-1.30) H 10/09/21 04:44 Est GFR (MDRD) Af Amer 54 (>60) L 10/09/21 04:44 Est GFR (MDRD) Non-Af 44 (>60) L 10/09/21 04:44 Glucose 106 mg/dL (65-99) H 10/09/21 04:44 Calcium 8.2 mg/dL (8.5-10.1) L 10/09/21 04:44 Corrected Calcium 9.4 mg/dL (8.5-10.1) 10/09/21 04:44 Total Bilirubin 0.10 mg/dL (0.2-1.0) L 10/09/21 04:44 AST 21 Units/L (15-37) 10/09/21 04:44 ALT 15 Units/L (12-78) 10/09/21 04:44 Alkaline Phosphatase 60 Units/L (46-116) 10/09/21 04:44 Creatine Kinase 173 Units/L (39-308) 10/02/21 07:55 Troponin I High Sens 20.6 ng/L (4.0-60.0) 10/02/21 07:55 B-Natriuretic Peptide 124 pg/mL (0-79) H 10/02/21 07:55 Total Protein 6.8 g/dL (6.4-8.2) 10/09/21 04:44 Albumin 2.5 g/dL (3.4-5.0) L 10/09/21 04:44 Globulin 4.3 g/dL (2.5-4.5) 10/09/21 04:44 Albumin/Globulin Ratio 0.6 Ratio (1.1-2.1) L 10/09/21 04:44 SARS CoV-2 RNA Rapid MIGUEL Negative (NEGATIVE) 10/02/21 07:45 - Plan (1) Tension pneumothorax Status: Acute Plan: CIPRO 500MG PO BID, PROVENTIL NEBS Q2H PRN, DILAUDID 1-2MG IV Q4H PRN PAIN, PERCOCET 5/325MG PO Q4H PRN, ZOFRAN 4MG IV Q8H PRN, MIL OF MAGNESIA 30ML PO Q12H PRN, COLACE 200MG PO Q12H PRN. RESUME HOME MEDS. MONITOR LABS AND CHEST XRAY (2) Respiratory distress Status: Acute (3) CHF (congestive heart failure) Status: Chronic Qualifiers: Heart failure chronicity: acute on chronic (4) HTN (hypertension) Status: Chronic Qualifiers: Hypertension type: primary hypertension Qualified Code(s): I10 - Essential (primary) hypertension
[2021-10-09] MEDS: COZAAR PO SCH (13:12)
[2021-10-09] MEDS: PERCOCET TAB 5/325 MG PO PRN ×2 (14:05→21:28)
--- NOTE | 2021-10-09 15:55 | DR.PROGNOT ---
Hospital Progress Notes - Progress Note for Day of: Progress Note Date: 10/09/21 - Chief Complaint Chief Complaint: comfortable . no chest pain , no SOB. repeated chest X ray showed epanded lung with clear field . attempted clamping CT was not successful .. had to put it back to suction . - Past Medical Family Social History Past Med/Fam/Surg Hx: No changes since H&P Allergies: Allergies No Known Drug Allergies Allergy (Verified 04/28/19 08:16) - Review Of Systems ROS: No change since H&P - Vital Signs Vital Signs: Temperature 98.5 F Pulse Rate [Left Apical] 69 Pulse Rate 64 Respiratory Rate 22 Blood Pressure [Left Arm] 155/85 Blood Pressure 109/58 O2 Sat by Pulse Oximetry 98 - Physical Exam Oriented: Normal Eyes: Normal Ear: Normal Nose: Normal Throat: Normal Respiratory: Normal (chest tube in place with clear lung field ..), Generalized Cardiovascular: Normal : Normal GI:Auscultation: Normal GI:Palpation: Normal GI: Tenderness: Normal Skin: Normal Musculoskeletal: Normal Psychiatric: Normal Mood Description: Calm Affect: Normal Speech Pattern: Clear, Appropriate - Laboratory and Diagnostics Result Diagrams: 10/09/21 04:44 10/09/21 04:44 Labs: Laboratory WBC 3.7 X10^3/uL (3.6-10.0) 10/09/21 04:44 RBC 3.51 X10^6/uL (4.7-6.0) L 10/09/21 04:44 Hgb 10.1 g/dL (13.5-18.0) L 10/09/21 04:44 Hct 29.5 % (42.0-54.0) L 10/09/21 04:44 MCV 84.0 fL (80.0-100.0) 10/09/21 04:44 MCH 29.0 pg (27.0-34.0) 10/09/21 04:44 MCHC 34.5 g/dL (33.0-35.0) 10/09/21 04:44 RDW 13.1 % (11.6-16.5) 10/09/21 04:44 Plt Count 303 X10^3/uL (150.0-450.0) 10/09/21 04:44 MPV 7.9 fL (7.4-11.0) 10/09/21 04:44 Neut % (Auto) 62.8 % (42.0-75.0) 10/09/21 04:44 Lymph % (Auto) 21.1 % (21.0-51.0) 10/09/21 04:44 [place] % (Auto) 8.0 % (0.0-13.0) 10/09/21 04:44 Eos % (Auto) 7.7 % (0.9-2.9) H 10/09/21 04:44 Baso % (Auto) 0.4 % (0.2-1.0) 10/09/21 04:44 Neut # (Auto) 2.3 x10^3/uL (2.2-4.8) 10/09/21 04:44 Lymph # (Auto) 0.8 X10^3/uL (1.3-2.9) L 10/09/21 04:44 [place] # (Auto) 0.3 x10^3/uL (0.3-0.8) 10/09/21 04:44 Eos # (Auto) 0.3 x10^3/uL (0.0-0.2) H 10/09/21 04:44 Baso # (Auto) 0.0 X10^3/uL (0.0-0.1) 10/09/21 04:44 Absolute Nucleated RBC 0.0 /100WBC 10/09/21 04:44 Sodium 139 mmol/L (136-145) 10/09/21 04:44 Corrected Sodium TNP 10/09/21 04:44 Potassium 3.8 mmol/L (3.5-5.1) 10/09/21 04:44 Chloride 100 mmol/L (98-107) 10/09/21 04:44 Carbon Dioxide 31.6 mmol/L (21-32) 10/09/21 04:44 BUN 21 mg/dL (7-18) H 10/09/21 04:44 Creatinine 1.65 mg/dL (0.70-1.30) H 10/09/21 04:44 Est GFR (MDRD) Af Amer 54 (>60) L 10/09/21 04:44 Est GFR (MDRD) Non-Af 44 (>60) L 10/09/21 04:44 Glucose 106 mg/dL (65-99) H 10/09/21 04:44 Calcium 8.2 mg/dL (8.5-10.1) L 10/09/21 04:44 Corrected Calcium 9.4 mg/dL (8.5-10.1) 10/09/21 04:44 Total Bilirubin 0.10 mg/dL (0.2-1.0) L 10/09/21 04:44 AST 21 Units/L (15-37) 10/09/21 04:44 ALT 15 Units/L (12-78) 10/09/21 04:44 Alkaline Phosphatase 60 Units/L (46-116) 10/09/21 04:44 Creatine Kinase 173 Units/L (39-308) 10/02/21 07:55 Troponin I High Sens 20.6 ng/L (4.0-60.0) 10/02/21 07:55 B-Natriuretic Peptide 124 pg/mL (0-79) H 10/02/21 07:55 Total Protein 6.8 g/dL (6.4-8.2) 10/09/21 04:44 Albumin 2.5 g/dL (3.4-5.0) L 10/09/21 04:44 Globulin 4.3 g/dL (2.5-4.5) 10/09/21 04:44 Albumin/Globulin Ratio 0.6 Ratio (1.1-2.1) L 10/09/21 04:44 SARS CoV-2 RNA Rapid MIGUEL Negative (NEGATIVE) 10/02/21 07:45 - Assessment and Plan 1: spontaneous RT pneumothorax S/P insertion of chest tube . same plan .incentive spirometer , OOB. repeat X Ray in am .. not ready to remove chest tube .. - Problem Patient Problems: Patient Problems Tension pneumothorax (Acute) J93.0 Respiratory distress (Acute) R06.03 HTN (hypertension) (Chronic) I10 CHF (congestive heart failure) (Chronic) I50.9
[2021-10-09] MEDS: COLACE CAP 100 MG PO PRN (20:17)
[2021-10-09] MEDS: LIPITOR TAB 40 MG PO SCH (20:17)
[2021-10-10 05:13] LABS: BASOPHILS # (AUTO) 0.1 X10^3/uL (0.0-0.1); BASOPHILS % (AUTO) 1.5 % (0.2-1.0); EOSINOPHILS # (AUTO) 0.3 x10^3/uL (0.0-0.2); HEMATOCRIT 33.6 % (42.0-54.0); HEMOGLOBIN 11.3 g/dL (13.5-18.0); LYMPHOCYTES # (AUTO) 0.8 X10^3/uL (1.3-2.9); LYMPHOCYTES % (AUTO) 21.6 % (21.0-51.0); MEAN CORPUSCULAR HEMOGLOBIN 28.3 pg (27.0-34.0); MEAN CORPUSCULAR HGB CONC 33.7 g/dL (33.0-35.0); MEAN CORPUSCULAR VOLUME 84.1 fL (80.0-100.0); MEAN PLATELET VOLUME 7.9 fL (7.4-11.0); MONOCYTES # (AUTO) 0.3 x10^3/uL (0.3-0.8); MONOCYTES % (AUTO) 9.8 % (0.0-13.0); NEUTROPHILS % (AUTO) 58.1 % (42.0-75.0); RED BLOOD COUNT 3.99 X10^6/uL (4.7-6.0); RED CELL DISTRIBUTION WIDTH 13.1 % (11.6-16.5); WHITE BLOOD COUNT 3.5 X10^3/uL (3.6-10.0)
[2021-10-10 05:20] LABS: ALANINE AMINOTRANSFERASE 15 Units/L (12-78); ALBUMIN 2.8 g/dL (3.4-5.0); ALKALINE PHOSPHATASE 66 Units/L (46-116); ASPARTATE AMINO TRANSFERASE 27 Units/L (15-37); BLOOD UREA NITROGEN 20 mg/dL (7-18); CALCIUM 8.6 mg/dL (8.5-10.1); CARBON DIOXIDE 34.6 mmol/L (21-32); CHLORIDE 100 mmol/L (98-107); COR CA(FOR HYPOALB) 9.6 mg/dL (8.5-10.1); CREATININE 1.45 mg/dL (0.70-1.30); SODIUM 137 mmol/L (136-145); TOTAL PROTEIN 7.4 g/dL (6.4-8.2); eGFR NON BLACK RACES 52 (>60)
--- NOTE | 2021-10-10 06:09 | RAD ---
HISTORYRIGHT SIDED TENSION PNEUMOTHORAX; SOB Relevant Clinical InformationSTUDYCHEST, 1 DEBDSZHEOLHCWG25/29/2022FINDINGSThe trachea is midline. The cardiac silhouette is unremarkable. Right chest tube unchanged. Trace right pneumothorax again noted. The lungs are clear the lungs are clear without focal infiltrate or effusion. The bony thorax is unremarkable.IMPRESSIONStable portable chest.Electronically signed by: Jorje Brunson (Oct 10, 2021 06:08:30)
[2021-10-10] MEDS: COREG TAB 12.5 MG PO SCH ×2 (08:12→20:04)
[2021-10-10] MEDS: ZYLOPRIM PO SCH (08:12)
[2021-10-10] MEDS: LYRICA CAP 75 mg PO SCH ×2 (08:12→20:04)
[2021-10-10] MEDS: CIPRO TAB 500 MG PO SCH ×2 (08:12→20:04)
[2021-10-10] MEDS: LASIX PO SCH ×2 (08:12→20:04)
[2021-10-10] MEDS: COZAAR PO SCH (08:12)
[2021-10-10] MEDS: ALDACTONE TAB 25 MG PO SCH (08:13)
--- NOTE | 2021-10-10 10:29 | PCM.PROG ---
Progress Note - Progress Note for Day of Date of Exam: 10/10/21 - Subjective Subjective: IS CURRENTLY INPATIENT STATUS FOR TREATMENT OF A SPONTANEOUS PNEUMOTHORAX AND RESPIRATORY DISTRESS. HE HAS A PMH OF CHF AND HTN. TODAY, HE IS ALERT AND ORIENTED, LYING IN BED ON MORNING ROUNDS. HE DENIES CURRENT COMPLAINTS THIS MORNING. YESTERDAY, HOWEVER, CHEST TUBE WAS CLAMPED. O XYGEN SATURATIONS REPORTEDLY FELL TO THE 80s, BUT RECOVERED WELL WHEN CHEST TUBE WAS UNCLAMPED. ON EXAMINATION, HEART IS REGULAR IN RATE AND RHYTHM. BILATERAL LUNGS NOTED WITH DIMINISHED LUNG SOUNDS THROUGHOUT. CHEST TUBE NOTED TO RIGHT SIDE CHEST WALL. ABDOMEN IS ROUND, SOFT, AND NON-TENDER WITH NORMAL BOWEL SOUNDS NOTED IN ALL QUADRANTS. HIS VITALS THIS MORNING ARE: 98.1-57-16-99%-114/62. LABS WERE OBTAINED. WBC 3.5, RBC 3.99, HGB 11.3, HCT 33.6, SODIUM 137, POTASSIUM 4.8, BUN 20, CREATININE 1.45, GLUCOSE 97, AST 27, ALT 15, ALK PHOS 66, TOTAL PROTEIN 7.4, ALBUMIN 2.8. CHEST XRAY REPEATED AND REVEALED: The trachea is midline. The cardiac silhouette is unremarkable. Right chest tube unchanged. Trace right pneumothorax again noted. The lungs are clear the lungs are clear without focal infiltrate or effusion. The bony thorax is unremarkable.HE IS CURRENTLY RECEIVING: CIPRO 500MG PO BID, PROVENTIL NEBS Q2H PRN, DILAUDID 1-2MG IV Q4H PRN PAIN, PERCOCET 5/325MG PO Q4H PRN, ZOFRAN 4MG IV Q8H PRN, MIL OF MAGNESIA 30ML PO Q12H PRN, COLACE 200MG PO Q12H PRN. HIS HOME MEDICATIONS OF ALLOPURINOL, LIPITOR, LASIX, COZAAR, NITROSTAT, LYRICA, AND SPIRONOLACTONE WERE RESUMED. WE WILL CONTINUE WITH CURRENT PLAN OF CARE TODAY. WILL CONTINUE TO FOLLOW PATIENT. OTHERWISE, WE WILL FOLLOW-UP WITH AM LABS AND CONTINUE TO MONITOR. TIME SPENT ON CLINICAL ASSESSMENT, REVIWING LABS AND IMAGING, DECISION MAKING, AND DOCUMENTATION GREATER THAN 45 MINUTES. - Past Medical Family Social History Past Med/Fam/Surg Hx: No changes since H&P Allergies: Allergies No Known Drug Allergies Allergy (Verified 04/28/19 08:16) - Review of Systems ROS: No change since H&P - Vital Signs and I&O's Vital Signs: Temperature 98.1 F Pulse Rate [Left Apical] 69 Pulse Rate 61 Respiratory Rate 14 Blood Pressure [Left Arm] 155/85 Blood Pressure 122/67 O2 Sat by Pulse Oximetry 98 Intake and Output: Intake & Output 10/07/21 10/08/21 10/09/21 10/10/21 11:59 11:59 11:59 11:59 Intake Total 1526 / 1526 1620 / 1620 700 / 700 1810 / 1810 Output Total 2614 / 2614 3075 / 3075 2305 / 2305 2175 / 2175 Balance -1088 / -1088 -1455 / -1455 -1605 / -1605 -365 / -365 - Physical Exam Oriented: Normal Eyes: Normal Ear: Normal Nose: Normal Throat: Normal Respiratory: Normal (chest tube in place with clear lung field ..), Generalized Cardiovascular: Normal : Normal Auscultation: Bowel Sounds: Normal Tenderness: Normal Skin: Normal Musculoskeletal: Normal Psychiatric: Normal Mood Description: Calm Affect: Normal Speech Pattern: Clear, Appropriate - Laboratory and Diagnostics Result Diagrams: 10/10/21 04:42 10/10/21 04:42 Labs: Laboratory WBC 3.5 X10^3/uL (3.6-10.0) L 10/10/21 04:42 RBC 3.99 X10^6/uL (4.7-6.0) L 10/10/21 04:42 Hgb 11.3 g/dL (13.5-18.0) L 10/10/21 04:42 Hct 33.6 % (42.0-54.0) L 10/10/21 04:42 MCV 84.1 fL (80.0-100.0) 10/10/21 04:42 MCH 28.3 pg (27.0-34.0) 10/10/21 04:42 MCHC 33.7 g/dL (33.0-35.0) 10/10/21 04:42 RDW 13.1 % (11.6-16.5) 10/10/21 04:42 Plt Count 327 X10^3/uL (150.0-450.0) 10/10/21 04:42 MPV 7.9 fL (7.4-11.0) 10/10/21 04:42 Neut % (Auto) 58.1 % (42.0-75.0) 10/10/21 04:42 Lymph % (Auto) 21.6 % (21.0-51.0) 10/10/21 04:42 [place] % (Auto) 9.8 % (0.0-13.0) 10/10/21 04:42 Eos % (Auto) 9.0 % (0.9-2.9) H 10/10/21 04:42 Baso % (Auto) 1.5 % (0.2-1.0) H 10/10/21 04:42 Neut # (Auto) 2.0 x10^3/uL (2.2-4.8) L 10/10/21 04:42 Lymph # (Auto) 0.8 X10^3/uL (1.3-2.9) L 10/10/21 04:42 [place] # (Auto) 0.3 x10^3/uL (0.3-0.8) 10/10/21 04:42 Eos # (Auto) 0.3 x10^3/uL (0.0-0.2) H 10/10/21 04:42 Baso # (Auto) 0.1 X10^3/uL (0.0-0.1) 10/10/21 04:42 Absolute Nucleated RBC 0.1 /100WBC 10/10/21 04:42 Sodium 137 mmol/L (136-145) 10/10/21 04:42 Corrected Sodium TNP 10/10/21 04:42 Potassium 4.8 mmol/L (3.5-5.1) 10/10/21 04:42 Chloride 100 mmol/L (98-107) 10/10/21 04:42 Carbon Dioxide 34.6 mmol/L (21-32) H 10/10/21 04:42 BUN 20 mg/dL (7-18) H 10/10/21 04:42 Creatinine 1.45 mg/dL (0.70-1.30) H 10/10/21 04:42 Est GFR (MDRD) Af Amer > 60 (>60) 10/10/21 04:42 Est GFR (MDRD) Non-Af 52 (>60) L 10/10/21 04:42 Glucose 97 mg/dL (65-99) 10/10/21 04:42 Calcium 8.6 mg/dL (8.5-10.1) 10/10/21 04:42 Corrected Calcium 9.6 mg/dL (8.5-10.1) 10/10/21 04:42 Total Bilirubin 0.20 mg/dL (0.2-1.0) 10/10/21 04:42 AST 27 Units/L (15-37) 10/10/21 04:42 ALT 15 Units/L (12-78) 10/10/21 04:42 Alkaline Phosphatase 66 Units/L (46-116) 10/10/21 04:42 Creatine Kinase 173 Units/L (39-308) 10/02/21 07:55 Troponin I High Sens 20.6 ng/L (4.0-60.0) 10/02/21 07:55 B-Natriuretic Peptide 124 pg/mL (0-79) H 10/02/21 07:55 Total Protein 7.4 g/dL (6.4-8.2) 10/10/21 04:42 Albumin 2.8 g/dL (3.4-5.0) L 10/10/21 04:42 Globulin 4.6 g/dL (2.5-4.5) H 10/10/21 04:42 Albumin/Globulin Ratio 0.6 Ratio (1.1-2.1) L 10/10/21 04:42 SARS CoV-2 RNA Rapid MIGUEL Negative (NEGATIVE) 10/02/21 07:45 - Plan (1) Tension pneumothorax Status: Acute Plan: CIPRO 500MG PO BID, PROVENTIL NEBS Q2H PRN, DILAUDID 1-2MG IV Q4H PRN PAIN, PERCOCET 5/325MG PO Q4H PRN, ZOFRAN 4MG IV Q8H PRN, MIL OF MAGNESIA 30ML PO Q12H PRN, COLACE 200MG PO Q12H PRN. RESUME HOME MEDS. MONITOR LABS AND CHEST XRAY (2) Respiratory distress Status: Acute (3) CHF (congestive heart failure) Status: Chronic Qualifiers: Heart failure chronicity: acute on chronic (4) HTN (hypertension) Status: Chronic Qualifiers: Hypertension type: primary hypertension Qualified Code(s): I10 - Essential (primary) hypertension
[2021-10-10] MEDS: COLACE CAP 100 MG PO PRN (20:04)
[2021-10-10] MEDS: LIPITOR TAB 40 MG PO SCH (20:04)
[2021-10-10] MEDS: PERCOCET TAB 5/325 MG PO PRN (20:14)
[2021-10-11 05:28] LABS: BASOPHILS # (AUTO) 0.1 X10^3/uL (0.0-0.1); EOSINOPHILS # (AUTO) 0.4 x10^3/uL (0.0-0.2); EOSINOPHILS % (AUTO) 11.2 % (0.9-2.9); HEMATOCRIT 30.3 % (42.0-54.0); HEMOGLOBIN 10.3 g/dL (13.5-18.0); LYMPHOCYTES # (AUTO) 0.7 X10^3/uL (1.3-2.9); LYMPHOCYTES % (AUTO) 21.7 % (21.0-51.0); MEAN CORPUSCULAR HEMOGLOBIN 28.5 pg (27.0-34.0); MEAN CORPUSCULAR HGB CONC 34.1 g/dL (33.0-35.0); MEAN CORPUSCULAR VOLUME 83.8 fL (80.0-100.0); MEAN PLATELET VOLUME 7.5 fL (7.4-11.0); MONOCYTES # (AUTO) 0.4 x10^3/uL (0.3-0.8); NEUTROPHILS # (AUTO) 1.7 x10^3/uL (2.2-4.8); NEUTROPHILS % (AUTO) 52.1 % (42.0-75.0); RED BLOOD COUNT 3.62 X10^6/uL (4.7-6.0); RED CELL DISTRIBUTION WIDTH 13.5 % (11.6-16.5); WHITE BLOOD COUNT 3.2 X10^3/uL (3.6-10.0)
[2021-10-11 05:46] LABS: ALANINE AMINOTRANSFERASE 15 Units/L (12-78); ALBUMIN 2.7 g/dL (3.4-5.0); ALKALINE PHOSPHATASE 65 Units/L (46-116); ASPARTATE AMINO TRANSFERASE 20 Units/L (15-37); BLOOD UREA NITROGEN 21 mg/dL (7-18); CALCIUM 8.3 mg/dL (8.5-10.1); CARBON DIOXIDE 34.6 mmol/L (21-32); CHLORIDE 100 mmol/L (98-107); COR CA(FOR HYPOALB) 9.3 mg/dL (8.5-10.1); CREATININE 1.45 mg/dL (0.70-1.30); SODIUM 139 mmol/L (136-145); TOTAL PROTEIN 6.8 g/dL (6.4-8.2); eGFR NON BLACK RACES 52 (>60)
--- NOTE | 2021-10-11 06:11 | RAD ---
HISTORYRIGHT SIDED PNEUMOTHORAX Relevant Clinical InformationSTUDYCHEST, 1 [id number]/30/2022FINDINGSThe trachea is midline. Right chest tube unchanged. The cardiac silhouette is stable tiny right pneumothorax unchanged.. The lungs are clear without focal infiltrate or effusion. The bony thorax is unremarkable.IMPRESSIONStable portable chest.Electronically signed by: Jorje Brunson (Oct 11, 2021 06:10:22)
[2021-10-11] MEDS: ALDACTONE TAB 25 MG PO SCH (08:13)
[2021-10-11] MEDS: LASIX PO SCH ×2 (08:13→20:23)
[2021-10-11] MEDS: CIPRO TAB 500 MG PO SCH ×2 (08:13→20:23)
[2021-10-11] MEDS: ZYLOPRIM PO SCH (08:14)
[2021-10-11] MEDS: LYRICA CAP 75 mg PO SCH ×2 (08:14→20:23)
[2021-10-11] MEDS: COZAAR PO SCH (08:15)
[2021-10-11] MEDS: COREG TAB 12.5 MG PO SCH ×2 (08:16→20:23)
--- NOTE | 2021-10-11 11:41 | PCM.PROG ---
Progress Note - Progress Note for Day of Date of Exam: 10/11/21 - Subjective Subjective: IS CURRENTLY INPATIENT STATUS FOR TREATMENT OF A SPONTANEOUS PNEUMOTHORAX AND RESPIRATORY DISTRESS. HE HAS A PMH OF CHF AND HTN. TODAY, HE IS ALERT AND ORIENTED, LYING IN BED ON MORNING ROUNDS. HE DENIES CURRENT COMPLAINTS THIS MORNING. ON EXAMINATION, HEART IS REGULAR IN RATE AND RHYTHM. BILATERAL LUNGS NOTED WITH DIMINISHED LUNG SOUNDS THROUGHOUT. CHEST TUBE NOTED TO RIGHT SIDE CHEST WALL. ABDOMEN IS ROUND, SOFT, AND NON-TENDER WITH NORMAL BOWEL SOUNDS NOTED IN ALL QUADRANTS. HIS VITALS THIS MORNING ARE: 97.7-58-22-99%-128/62. LABS WERE OBTAINED. WBC 3.2, RBC 3.62, HGB 10.3, HCT 30.3, SODIUM 139, POTASSIUM 3.7, CARBON DIOXIDE 34.6, BUN 21, CREATININE 1.45, GLUCOSE 80, CALCIUM 8.3, TOTAL BILI 0.10, TOTAL PROTEIN 6.8, ALBUMIN 2.7. CHEST XRAY REPEATED AND REVEALED: The trachea is midline. Right chest tube unchanged. The cardiac silhouette is stable tiny right pneumothorax unchanged. The lungs are clear without focal infiltrate or effusion. The bony thorax is unremarkable. HE IS CURRENTLY RECEIVING: CIPRO 500MG PO BID, PROVENTIL NEBS Q2H PRN, DILAUDID 1-2MG IV Q4H PRN PAIN, PERCOCET 5/325MG PO Q4H PRN, ZOFRAN 4MG IV Q8H PRN, MIL OF MAGNESIA 30ML PO Q12H PRN, COLACE 200MG PO Q12H PRN. HIS HOME MEDICATIONS OF ALLOPURINOL, LIPITOR, LASIX, COZAAR, NITROSTAT, LYRICA, AND SPIRONOLACTONE WERE RESUMED. WE WILL CONTINUE WITH CURRENT PLAN OF CARE TODAY. WILL CO NTINUE TO FOLLOW PATIENT. OTHERWISE, WE WILL FOLLOW-UP WITH AM LABS AND CONTINUE TO MONITOR. TIME SPENT ON CLINICAL ASSESSMENT, REVIWING LABS AND IMAGING, DECISION MAKING, AND DOCUMENTATION GREATER THAN 45 MINUTES. - Past Medical Family Social History Past Med/Fam/Surg Hx: No changes since H&P Allergies: Allergies No Known Drug Allergies Allergy (Verified 04/28/19 08:16) - Review of Systems ROS: No change since H&P - Vital Signs and I&O's Vital Signs: Temperature 97.7 F Pulse Rate [Left Apical] 69 Pulse Rate 81 Respiratory Rate 18 Blood Pressure [Left Arm] 155/85 Blood Pressure 110/68 O2 Sat by Pulse Oximetry 93 Intake and Output: Intake & Output 10/08/21 10/09/21 10/10/21 10/11/21 11:59 11:59 11:59 11:59 Intake Total 1620 / 1620 700 / 700 1810 / 1810 720 / 720 Output Total 3075 / 3075 2305 / 2305 2175 / 2175 2530 / 2530 Balance -1455 / -1455 -1605 / -1605 -365 / -365 -1810 / -1810 - Physical Exam Oriented: Normal Eyes: Normal Ear: Normal Nose: Normal Throat: Normal Respiratory: Normal (chest tube in place with clear lung field ..), Generalized Cardiovascular: Normal : Normal Auscultation: Bowel Sounds: Normal Palpation: Normal Tenderness: Normal Skin: Normal Musculoskeletal: Normal Psychiatric: Normal Mood Description: Calm Affect: Normal Speech Pattern: Clear, Appropriate - Laboratory and Diagnostics Result Diagrams: 10/11/21 05:04 10/11/21 05:04 Labs: Laboratory WBC 3.2 X10^3/uL (3.6-10.0) L 10/11/21 05:04 RBC 3.62 X10^6/uL (4.7-6.0) L 10/11/21 05:04 Hgb 10.3 g/dL (13.5-18.0) L 10/11/21 05:04 Hct 30.3 % (42.0-54.0) L 10/11/21 05:04 MCV 83.8 fL (80.0-100.0) 10/11/21 05:04 MCH 28.5 pg (27.0-34.0) 10/11/21 05:04 MCHC 34.1 g/dL (33.0-35.0) 10/11/21 05:04 RDW 13.5 % (11.6-16.5) 10/11/21 05:04 Plt Count 333 X10^3/uL (150.0-450.0) 10/11/21 05:04 MPV 7.5 fL (7.4-11.0) 10/11/21 05:04 Neut % (Auto) 52.1 % (42.0-75.0) 10/11/21 05:04 Lymph % (Auto) 21.7 % (21.0-51.0) 10/11/21 05:04 [place] % (Auto) 13.0 % (0.0-13.0) 10/11/21 05:04 Eos % (Auto) 11.2 % (0.9-2.9) H 10/11/21 05:04 Baso % (Auto) 2.0 % (0.2-1.0) H 10/11/21 05:04 Neut # (Auto) 1.7 x10^3/uL (2.2-4.8) L 10/11/21 05:04 Lymph # (Auto) 0.7 X10^3/uL (1.3-2.9) L 10/11/21 05:04 [place] # (Auto) 0.4 x10^3/uL (0.3-0.8) 10/11/21 05:04 Eos # (Auto) 0.4 x10^3/uL (0.0-0.2) H 10/11/21 05:04 Baso # (Auto) 0.1 X10^3/uL (0.0-0.1) 10/11/21 05:04 Absolute Nucleated RBC 0.1 /100WBC 10/11/21 05:04 Sodium 139 mmol/L (136-145) 10/11/21 05:04 Corrected Sodium TNP 10/11/21 05:04 Potassium 3.7 mmol/L (3.5-5.1) 10/11/21 05:04 Chloride 100 mmol/L (98-107) 10/11/21 05:04 Carbon Dioxide 34.6 mmol/L (21-32) H 10/11/21 05:04 BUN 21 mg/dL (7-18) H 10/11/21 05:04 Creatinine 1.45 mg/dL (0.70-1.30) H 10/11/21 05:04 Est GFR (MDRD) Af Amer > 60 (>60) 10/11/21 05:04 Est GFR (MDRD) Non-Af 52 (>60) L 10/11/21 05:04 Glucose 80 mg/dL (65-99) 10/11/21 05:04 Calcium 8.3 mg/dL (8.5-10.1) L 10/11/21 05:04 Corrected Calcium 9.3 mg/dL (8.5-10.1) 10/11/21 05:04 Total Bilirubin 0.10 mg/dL (0.2-1.0) L 10/11/21 05:04 AST 20 Units/L (15-37) 10/11/21 05:04 ALT 15 Units/L (12-78) 10/11/21 05:04 Alkaline Phosphatase 65 Units/L (46-116) 10/11/21 05:04 Creatine Kinase 173 Units/L (39-308) 10/02/21 07:55 Troponin I High Sens 20.6 ng/L (4.0-60.0) 10/02/21 07:55 B-Natriuretic Peptide 124 pg/mL (0-79) H 10/02/21 07:55 Total Protein 6.8 g/dL (6.4-8.2) 10/11/21 05:04 Albumin 2.7 g/dL (3.4-5.0) L 10/11/21 05:04 Globulin 4.1 g/dL (2.5-4.5) 10/11/21 05:04 Albumin/Globulin Ratio 0.7 Ratio (1.1-2.1) L 10/11/21 05:04 SARS CoV-2 RNA Rapid MIGUEL Negative (NEGATIVE) 10/02/21 07:45 - Plan (1) Tension pneumothorax Status: Acute Plan: CIPRO 500MG PO BID, PROVENTIL NEBS Q2H PRN, DILAUDID 1-2MG IV Q4H PRN PAIN, PERCOCET 5/325MG PO Q4H PRN, ZOFRAN 4MG IV Q8H PRN, MIL OF MAGNESIA 30ML PO Q12H PRN, COLACE 200MG PO Q12H PRN. RESUME HOME MEDS. MONITOR LABS AND CHEST XRAY (2) Respiratory distress Status: Acute (3) CHF (congestive heart failure) Status: Chronic Qualifiers: Heart failure chronicity: acute on chronic (4) HTN (hypertension) Status: Chronic Qualifiers: Hypertension type: primary hypertension Qualified Code(s): I10 - Essential (primary) hypertension
--- NOTE | 2021-10-11 13:19 | RAD ---
HISTORYrt pneumothorax dyspneaSTUDYCHEST, 1 VIEWCOMPARISONAugust 2021.FINDINGSThe trachea is midline. The cardiac silhouette is unremarkable. The lungs demonstrate a slightly enlarged yet still small sized right apical/lateral pneumothorax without evidence for mediastinal shift. There is an unchanged right-sided large-bore chest tube whose tip terminates in the right lung apex. The left lung remains clear. Chronic interstitial lung changes remain, centrally. The bony thorax is unremarkable.IMPRESSIONSlightly enlarged yet still small sized right apical/lateral pneumothorax without evidence for mediastinal shift. There is an unchanged right-sided large-bore chest tube whose tip terminates in the right lung apex. The left lung remains clear. Chronic interstitial lung changes remain, centrally.Electronically signed by: SATIHS ESCOBEDO III (Oct 11, 2021 13:17:23)
--- NOTE | 2021-10-11 15:21 | DR.PROGNOT ---
Hospital Progress Notes - Progress Note for Day of: Progress Note Date: 10/11/21 - Chief Complaint Chief Complaint: comfortable . no chest pain , no SOB. repeated chest X ray showed epanded lung with clear field . attempted clamping CT was not successful .. had to put it back to suction . - Past Medical Family Social History Past Med/Fam/Surg Hx: No changes since H&P Allergies: Allergies No Known Drug Allergies Allergy (Verified 04/28/19 08:16) - Review Of Systems ROS: No change since H&P - Vital Signs Vital Signs: Temperature 98.5 F Pulse Rate [Left Apical] 69 Pulse Rate 74 Respiratory Rate 15 Blood Pressure [Left Arm] 155/85 Blood Pressure 120/68 O2 Sat by Pulse Oximetry 94 - Physical Exam Oriented: Normal Eyes: Normal Ear: Normal Nose: Normal Throat: Normal Respiratory: Normal (chest tube in place with clear lung field ..), Generalized Cardiovascular: Normal : Normal GI:Auscultation: Normal GI:Palpation: Normal GI: Tenderness: Normal Skin: Normal Musculoskeletal: Normal Psychiatric: Normal Mood Description: Calm Affect: Normal Speech Pattern: Clear, Appropriate - Laboratory and Diagnostics Result Diagrams: 10/11/21 05:04 10/11/21 05:04 Labs: Laboratory WBC 3.2 X10^3/uL (3.6-10.0) L 10/11/21 05:04 RBC 3.62 X10^6/uL (4.7-6.0) L 10/11/21 05:04 Hgb 10.3 g/dL (13.5-18.0) L 10/11/21 05:04 Hct 30.3 % (42.0-54.0) L 10/11/21 05:04 MCV 83.8 fL (80.0-100.0) 10/11/21 05:04 MCH 28.5 pg (27.0-34.0) 10/11/21 05:04 MCHC 34.1 g/dL (33.0-35.0) 10/11/21 05:04 RDW 13.5 % (11.6-16.5) 10/11/21 05:04 Plt Count 333 X10^3/uL (150.0-450.0) 10/11/21 05:04 MPV 7.5 fL (7.4-11.0) 10/11/21 05:04 Neut % (Auto) 52.1 % (42.0-75.0) 10/11/21 05:04 Lymph % (Auto) 21.7 % (21.0-51.0) 10/11/21 05:04 [place] % (Auto) 13.0 % (0.0-13.0) 10/11/21 05:04 Eos % (Auto) 11.2 % (0.9-2.9) H 10/11/21 05:04 Baso % (Auto) 2.0 % (0.2-1.0) H 10/11/21 05:04 Neut # (Auto) 1.7 x10^3/uL (2.2-4.8) L 10/11/21 05:04 Lymph # (Auto) 0.7 X10^3/uL (1.3-2.9) L 10/11/21 05:04 [place] # (Auto) 0.4 x10^3/uL (0.3-0.8) 10/11/21 05:04 Eos # (Auto) 0.4 x10^3/uL (0.0-0.2) H 10/11/21 05:04 Baso # (Auto) 0.1 X10^3/uL (0.0-0.1) 10/11/21 05:04 Absolute Nucleated RBC 0.1 /100WBC 10/11/21 05:04 Sodium 139 mmol/L (136-145) 10/11/21 05:04 Corrected Sodium TNP 10/11/21 05:04 Potassium 3.7 mmol/L (3.5-5.1) 10/11/21 05:04 Chloride 100 mmol/L (98-107) 10/11/21 05:04 Carbon Dioxide 34.6 mmol/L (21-32) H 10/11/21 05:04 BUN 21 mg/dL (7-18) H 10/11/21 05:04 Creatinine 1.45 mg/dL (0.70-1.30) H 10/11/21 05:04 Est GFR (MDRD) Af Amer > 60 (>60) 10/11/21 05:04 Est GFR (MDRD) Non-Af 52 (>60) L 10/11/21 05:04 Glucose 80 mg/dL (65-99) 10/11/21 05:04 Calcium 8.3 mg/dL (8.5-10.1) L 10/11/21 05:04 Corrected Calcium 9.3 mg/dL (8.5-10.1) 10/11/21 05:04 Total Bilirubin 0.10 mg/dL (0.2-1.0) L 10/11/21 05:04 AST 20 Units/L (15-37) 10/11/21 05:04 ALT 15 Units/L (12-78) 10/11/21 05:04 Alkaline Phosphatase 65 Units/L (46-116) 10/11/21 05:04 Creatine Kinase 173 Units/L (39-308) 10/02/21 07:55 Troponin I High Sens 20.6 ng/L (4.0-60.0) 10/02/21 07:55 B-Natriuretic Peptide 124 pg/mL (0-79) H 10/02/21 07:55 Total Protein 6.8 g/dL (6.4-8.2) 10/11/21 05:04 Albumin 2.7 g/dL (3.4-5.0) L 10/11/21 05:04 Globulin 4.1 g/dL (2.5-4.5) 10/11/21 05:04 Albumin/Globulin Ratio 0.7 Ratio (1.1-2.1) L 10/11/21 05:04 SARS CoV-2 RNA Rapid MIGUEL Negative (NEGATIVE) 10/02/21 07:45 - Assessment and Plan 1: spontaneous RT pneumothorax S/P insertion of chest tube . same plan .incentive spirometer , OOB. repeat X Ray in am .. will try to remove the CT in am ... - Problem Patient Problems: Patient Problems Tension pneumothorax (Acute) J93.0 Respiratory distress (Acute) R06.03 HTN (hypertension) (Chronic) I10 CHF (congestive heart failure) (Chronic) I50.9
[2021-10-11] MEDS: LIPITOR TAB 40 MG PO SCH (20:22)
[2021-10-11] MEDS: COLACE CAP 100 MG PO PRN (20:24)
[2021-10-11] MEDS: PERCOCET TAB 5/325 MG PO PRN (20:24)
[2021-10-12 05:44] LABS: BASOPHILS # (AUTO) 0.1 X10^3/uL (0.0-0.1); BASOPHILS % (AUTO) 2.2 % (0.2-1.0); EOSINOPHILS # (AUTO) 0.4 x10^3/uL (0.0-0.2); EOSINOPHILS % (AUTO) 11.8 % (0.9-2.9); HEMATOCRIT 30.9 % (42.0-54.0); HEMOGLOBIN 10.4 g/dL (13.5-18.0); LYMPHOCYTES # (AUTO) 0.8 X10^3/uL (1.3-2.9); LYMPHOCYTES % (AUTO) 23.9 % (21.0-51.0); MEAN CORPUSCULAR HEMOGLOBIN 28.1 pg (27.0-34.0); MEAN CORPUSCULAR HGB CONC 33.5 g/dL (33.0-35.0); MEAN CORPUSCULAR VOLUME 83.9 fL (80.0-100.0); MONOCYTES # (AUTO) 0.5 x10^3/uL (0.3-0.8); MONOCYTES % (AUTO) 14.9 % (0.0-13.0); NEUTROPHILS # (AUTO) 1.6 x10^3/uL (2.2-4.8); NEUTROPHILS % (AUTO) 47.2 % (42.0-75.0); RED BLOOD COUNT 3.68 X10^6/uL (4.7-6.0); RED CELL DISTRIBUTION WIDTH 13.3 % (11.6-16.5); WHITE BLOOD COUNT 3.3 X10^3/uL (3.6-10.0)
[2021-10-12 05:48] LABS: ALANINE AMINOTRANSFERASE 18 Units/L (12-78); ALBUMIN 2.6 g/dL (3.4-5.0); ALKALINE PHOSPHATASE 64 Units/L (46-116); ASPARTATE AMINO TRANSFERASE 23 Units/L (15-37); BLOOD UREA NITROGEN 19 mg/dL (7-18); CALCIUM 8.2 mg/dL (8.5-10.1); CARBON DIOXIDE 33.7 mmol/L (21-32); CHLORIDE 102 mmol/L (98-107); COR CA(FOR HYPOALB) 9.3 mg/dL (8.5-10.1); CREATININE 1.44 mg/dL (0.70-1.30); SODIUM 140 mmol/L (136-145); TOTAL PROTEIN 6.8 g/dL (6.4-8.2); eGFR NON BLACK RACES 52 (>60)
--- NOTE | 2021-10-12 06:03 | RAD ---
HISTORYFollow-up pneumothoraxSTUDYChest AP [id number]/31/2022FINDINGSHear t size is normal. Brooke are normal. Lungs are well inflated and free of acute infiltrates. Right chest tube remains in place. Trace residual right apical pneumothorax is present significantly smaller than on the prior examination. Bony thorax is unremarkable.IMPRESSIONTrace residual right apical pneumothoraxNo acute infiltratesElectronically signed by: MAGGI FRANCIS (Oct 12, 2021 06:02:02)
[2021-10-12] MEDS: LASIX PO SCH ×2 (08:04→20:42)
[2021-10-12] MEDS: COREG TAB 12.5 MG PO SCH ×2 (08:05→20:42)
[2021-10-12] MEDS: CIPRO TAB 500 MG PO SCH ×2 (08:05→20:42)
[2021-10-12] MEDS: ALDACTONE TAB 25 MG PO SCH (08:05)
[2021-10-12] MEDS: LYRICA CAP 75 mg PO SCH ×2 (08:05→20:43)
[2021-10-12] MEDS: COZAAR PO SCH (08:06)
[2021-10-12] MEDS: ZYLOPRIM PO SCH (08:06)
--- NOTE | 2021-10-12 11:12 | RAD ---
HISTORYPOST CHEST TUBE CLAMPED OFF RT SIDE PNEUMOSTUDYCHEST, 1 [id number]/01/2022FINDINGSSmall pneumothorax is present on the right side measuring a maximum of 12 mm near the apex. This was not present on the study from 4 hours ago.Lungs are otherwise clear with no pneumonia or pleural effusion.Heart size is normal.Bones are unremarkable. []A right chest tube is present with the tip at the lateral upper right chest. EKG leads are noted.IMPRESSION1. Small right pneumothoraxElectronically signed by: Tom Viera (Oct 12, 2021 11:10:32)
[2021-10-12] MEDS: PERCOCET TAB 5/325 MG PO PRN (16:29)
--- NOTE | 2021-10-12 16:55 | DR.PROGNOT ---
Hospital Progress Notes - Progress Note for Day of: Progress Note Date: 10/12/21 - Chief Complaint Chief Complaint: comfortable . no chest pain , no SOB. repeated chest X ray showed epanded lung with only small pneumo . chest tube was removed . chest X ray showed pneumothorax about 20% . Pt is comfortable . no SOB . - Past Medical Family Social History Past Med/Fam/Surg Hx: No changes since H&P Allergies: Allergies No Known Drug Allergies Allergy (Verified 04/28/19 08:16) - Review Of Systems ROS: No change since H&P - Vital Signs Vital Signs: Temperature 97.5 F Pulse Rate [Left Apical] 69 Pulse Rate 74 Respiratory Rate 18 Blood Pressure [Left Arm] 155/85 Blood Pressure 117/68 O2 Sat by Pulse Oximetry 96 - Physical Exam Oriented: Normal Eyes: Normal Ear: Normal Nose: Normal Throat: Normal Respiratory: Normal (chest tube in place with clear lung field ..), Generalized Cardiovascular: Normal : Normal GI:Auscultation: Normal GI:Palpation: Normal GI: Tenderness: Normal Skin: Normal Musculoskeletal: Normal Psychiatric: Normal Mood Description: Calm Affect: Normal Speech Pattern: Clear, Appropriate - Laboratory and Diagnostics Result Diagrams: 10/12/21 04:45 10/12/21 04:45 Labs: Laboratory WBC 3.3 X10^3/uL (3.6-10.0) L 10/12/21 04:45 RBC 3.68 X10^6/uL (4.7-6.0) L 10/12/21 04:45 Hgb 10.4 g/dL (13.5-18.0) L 10/12/21 04:45 Hct 30.9 % (42.0-54.0) L 10/12/21 04:45 MCV 83.9 fL (80.0-100.0) 10/12/21 04:45 MCH 28.1 pg (27.0-34.0) 10/12/21 04:45 MCHC 33.5 g/dL (33.0-35.0) 10/12/21 04:45 RDW 13.3 % (11.6-16.5) 10/12/21 04:45 Plt Count 347 X10^3/uL (150.0-450.0) 10/12/21 04:45 MPV 8.0 fL (7.4-11.0) 10/12/21 04:45 Neut % (Auto) 47.2 % (42.0-75.0) 10/12/21 04:45 Lymph % (Auto) 23.9 % (21.0-51.0) 10/12/21 04:45 [place] % (Auto) 14.9 % (0.0-13.0) H 10/12/21 04:45 Eos % (Auto) 11.8 % (0.9-2.9) H 10/12/21 04:45 Baso % (Auto) 2.2 % (0.2-1.0) H 10/12/21 04:45 Neut # (Auto) 1.6 x10^3/uL (2.2-4.8) L 10/12/21 04:45 Lymph # (Auto) 0.8 X10^3/uL (1.3-2.9) L 10/12/21 04:45 [place] # (Auto) 0.5 x10^3/uL (0.3-0.8) 10/12/21 04:45 Eos # (Auto) 0.4 x10^3/uL (0.0-0.2) H 10/12/21 04:45 Baso # (Auto) 0.1 X10^3/uL (0.0-0.1) 10/12/21 04:45 Absolute Nucleated RBC 0.2 /100WBC 10/12/21 04:45 Sodium 140 mmol/L (136-145) 10/12/21 04:45 Corrected Sodium TNP 10/12/21 04:45 Potassium 3.8 mmol/L (3.5-5.1) 10/12/21 04:45 Chloride 102 mmol/L (98-107) 10/12/21 04:45 Carbon Dioxide 33.7 mmol/L (21-32) H 10/12/21 04:45 BUN 19 mg/dL (7-18) H 10/12/21 04:45 Creatinine 1.44 mg/dL (0.70-1.30) H 10/12/21 04:45 Est GFR (MDRD) Af Amer > 60 (>60) 10/12/21 04:45 Est GFR (MDRD) Non-Af 52 (>60) L 10/12/21 04:45 Glucose 84 mg/dL (65-99) 10/12/21 04:45 Calcium 8.2 mg/dL (8.5-10.1) L 10/12/21 04:45 Corrected Calcium 9.3 mg/dL (8.5-10.1) 10/12/21 04:45 Total Bilirubin 0.10 mg/dL (0.2-1.0) L 10/12/21 04:45 AST 23 Units/L (15-37) 10/12/21 04:45 ALT 18 Units/L (12-78) 10/12/21 04:45 Alkaline Phosphatase 64 Units/L (46-116) 10/12/21 04:45 Creatine Kinase 173 Units/L (39-308) 10/02/21 07:55 Troponin I High Sens 20.6 ng/L (4.0-60.0) 10/02/21 07:55 B-Natriuretic Peptide 124 pg/mL (0-79) H 10/02/21 07:55 Total Protein 6.8 g/dL (6.4-8.2) 10/12/21 04:45 Albumin 2.6 g/dL (3.4-5.0) L 10/12/21 04:45 Globulin 4.2 g/dL (2.5-4.5) 10/12/21 04:45 Albumin/Globulin Ratio 0.6 Ratio (1.1-2.1) L 10/12/21 04:45 SARS CoV-2 RNA Rapid MIGUEL Negative (NEGATIVE) 10/02/21 07:45 - Assessment and Plan 1: spontaneous RT pneumothorax S/P insertion of chest tube . chest tube was removed with residual pneumothorax which debbie be observed .. - Problem Patient Problems: Patient Problems Tension pneumothorax (Acute) J93.0 Respiratory distress (Acute) R06.03 HTN (hypertension) (Chronic) I10 CHF (congestive heart failure) (Chronic) I50.9
--- NOTE | 2021-10-12 18:38 | RAD ---
HISTORYCHEST TUBE REMOVED, RIGHT PNEUMOTHORAXSTUDYCHEST, 1 VIEWCOMPARISONSeptember 2021 at 9:44 a.m.TECHNIQUEChest radiographic imaging, AP portable projection, 1 imageFINDINGSNo cardiomegaly.No focal airspace disease.No pleural effusion.Status post removal of the right chest tube.Right pneumothorax has increased from approximately 5 percent to 15 percent with no mediastinal shift.No acute osseous abnormality.IMPRESSIONEnlarging right pneumothorax status post right chest tube removal. No mediastinal shift.Electronically signed by: Pedro Rodriguez (Oct 12, 2021 18:35:54)
[2021-10-12] MEDS: LIPITOR TAB 40 MG PO SCH (20:42)
[2021-10-13 05:13] LABS: BASOPHILS % (AUTO) 0.5 % (0.2-1.0); EOSINOPHILS # (AUTO) 0.5 x10^3/uL (0.0-0.2); EOSINOPHILS % (AUTO) 13.1 % (0.9-2.9); HEMOGLOBIN 10.8 g/dL (13.5-18.0); LYMPHOCYTES # (AUTO) 0.8 X10^3/uL (1.3-2.9); LYMPHOCYTES % (AUTO) 21.9 % (21.0-51.0); MEAN CORPUSCULAR HEMOGLOBIN 28.4 pg (27.0-34.0); MEAN CORPUSCULAR HGB CONC 33.8 g/dL (33.0-35.0); MEAN CORPUSCULAR VOLUME 84.2 fL (80.0-100.0); MEAN PLATELET VOLUME 7.8 fL (7.4-11.0); MONOCYTES # (AUTO) 0.5 x10^3/uL (0.3-0.8); MONOCYTES % (AUTO) 13.3 % (0.0-13.0); NEUTROPHILS # (AUTO) 1.9 x10^3/uL (2.2-4.8); NEUTROPHILS % (AUTO) 51.2 % (42.0-75.0); RED CELL DISTRIBUTION WIDTH 13.3 % (11.6-16.5); WHITE BLOOD COUNT 3.7 X10^3/uL (3.6-10.0)
[2021-10-13 05:27] LABS: ALANINE AMINOTRANSFERASE 19 Units/L (12-78); ALBUMIN 2.8 g/dL (3.4-5.0); ALKALINE PHOSPHATASE 73 Units/L (46-116); ASPARTATE AMINO TRANSFERASE 22 Units/L (15-37); BLOOD UREA NITROGEN 21 mg/dL (7-18); CALCIUM 8.5 mg/dL (8.5-10.1); CHLORIDE 101 mmol/L (98-107); COR CA(FOR HYPOALB) 9.5 mg/dL (8.5-10.1); CREATININE 1.46 mg/dL (0.70-1.30); SODIUM 139 mmol/L (136-145); TOTAL PROTEIN 7.1 g/dL (6.4-8.2); eGFR NON BLACK RACES 51 (>60)
--- NOTE | 2021-10-13 05:42 | RAD ---
HISTORYSOB ARTHRITIS, ASTHMA HTN SX: ORTHOSTUDYCHEST, 1 [id number]/01/2022FINDINGSThe trachea is midline. The cardiac silhouette is unremarkable. Moderate-sized right pneumothorax slightly increased in size from previous study. The left lung is clear. The bony thorax is unremarkable.IMPRESSIONModerate-sized right pneumothorax slightly increased in size from previous 10/12/2021..Electronically signed by: Jorje Brunson (Oct 13, 2021 05:40:29)
[2021-10-13] MEDS: PERCOCET TAB 5/325 MG PO PRN (05:45)
[2021-10-13] MEDS: CIPRO TAB 500 MG PO SCH (09:05)
[2021-10-13] MEDS: ZYLOPRIM PO SCH (09:06)
[2021-10-13] MEDS: COREG TAB 12.5 MG PO SCH (09:06)
[2021-10-13] MEDS: LASIX PO SCH (09:06)
[2021-10-13] MEDS: ALDACTONE TAB 25 MG PO SCH (09:06)
[2021-10-13] MEDS: COZAAR PO SCH (09:07)
[2021-10-13] MEDS: LYRICA CAP 75 mg PO SCH (09:07)
--- NOTE | 2021-10-13 09:12 | DR.PROGNOT ---
Hospital Progress Notes - Progress Note for Day of: Progress Note Date: 10/13/21 - Chief Complaint Chief Complaint: comfortable . no chest pain , no SOB. repeated chest X ray showed residual RT pneumothorax. Pt is comfortable . no SOB .no chest pain . - Past Medical Family Social History Past Med/Fam/Surg Hx: No changes since H&P Allergies: Allergies No Known Drug Allergies Allergy (Verified 04/28/19 08:16) - Review Of Systems ROS: No change since H&P - Vital Signs Vital Signs: Temperature 97.9 F Pulse Rate [Left Apical] 69 Pulse Rate 67 Respiratory Rate 20 Blood Pressure [Left Arm] 155/85 Blood Pressure 115/70 O2 Sat by Pulse Oximetry 97 - Physical Exam Oriented: Normal Eyes: Normal Ear: Normal Nose: Normal Throat: Normal Respiratory: Normal (chest tube in place with clear lung field ..), Generalized Cardiovascular: Normal : Normal GI:Auscultation: Normal GI:Palpation: Normal GI: Tenderness: Normal Skin: Normal Musculoskeletal: Normal Psychiatric: Normal Mood Description: Calm Affect: Normal Speech Pattern: Clear, Appropriate - Laboratory and Diagnostics Result Diagrams: 10/13/21 04:34 10/13/21 04:34 Labs: Laboratory WBC 3.7 X10^3/uL (3.6-10.0) 10/13/21 04:34 RBC 3.80 X10^6/uL (4.7-6.0) L 10/13/21 04:34 Hgb 10.8 g/dL (13.5-18.0) L 10/13/21 04:34 Hct 32.0 % (42.0-54.0) L 10/13/21 04:34 MCV 84.2 fL (80.0-100.0) 10/13/21 04:34 MCH 28.4 pg (27.0-34.0) 10/13/21 04:34 MCHC 33.8 g/dL (33.0-35.0) 10/13/21 04:34 RDW 13.3 % (11.6-16.5) 10/13/21 04:34 Plt Count 377 X10^3/uL (150.0-450.0) 10/13/21 04:34 MPV 7.8 fL (7.4-11.0) 10/13/21 04:34 Neut % (Auto) 51.2 % (42.0-75.0) 10/13/21 04:34 Lymph % (Auto) 21.9 % (21.0-51.0) 10/13/21 04:34 [place] % (Auto) 13.3 % (0.0-13.0) H 10/13/21 04:34 Eos % (Auto) 13.1 % (0.9-2.9) H 10/13/21 04:34 Baso % (Auto) 0.5 % (0.2-1.0) 10/13/21 04:34 Neut # (Auto) 1.9 x10^3/uL (2.2-4.8) L 10/13/21 04:34 Lymph # (Auto) 0.8 X10^3/uL (1.3-2.9) L 10/13/21 04:34 [place] # (Auto) 0.5 x10^3/uL (0.3-0.8) 10/13/21 04:34 Eos # (Auto) 0.5 x10^3/uL (0.0-0.2) H 10/13/21 04:34 Baso # (Auto) 0.0 X10^3/uL (0.0-0.1) 10/13/21 04:34 Absolute Nucleated RBC 0.1 /100WBC 10/13/21 04:34 Sodium 139 mmol/L (136-145) 10/13/21 04:34 Corrected Sodium TNP 10/13/21 04:34 Potassium 3.7 mmol/L (3.5-5.1) 10/13/21 04:34 Chloride 101 mmol/L (98-107) 10/13/21 04:34 Carbon Dioxide 32.0 mmol/L (21-32) 10/13/21 04:34 BUN 21 mg/dL (7-18) H 10/13/21 04:34 Creatinine 1.46 mg/dL (0.70-1.30) H 10/13/21 04:34 Est GFR (MDRD) Af Amer > 60 (>60) 10/13/21 04:34 Est GFR (MDRD) Non-Af 51 (>60) L 10/13/21 04:34 Glucose 90 mg/dL (65-99) 10/13/21 04:34 Calcium 8.5 mg/dL (8.5-10.1) 10/13/21 04:34 Corrected Calcium 9.5 mg/dL (8.5-10.1) 10/13/21 04:34 Total Bilirubin 0.10 mg/dL (0.2-1.0) L 10/13/21 04:34 AST 22 Units/L (15-37) 10/13/21 04:34 ALT 19 Units/L (12-78) 10/13/21 04:34 Alkaline Phosphatase 73 Units/L (46-116) 10/13/21 04:34 Creatine Kinase 173 Units/L (39-308) 10/02/21 07:55 Troponin I High Sens 20.6 ng/L (4.0-60.0) 10/02/21 07:55 B-Natriuretic Peptide 124 pg/mL (0-79) H 10/02/21 07:55 Total Protein 7.1 g/dL (6.4-8.2) 10/13/21 04:34 Albumin 2.8 g/dL (3.4-5.0) L 10/13/21 04:34 Globulin 4.3 g/dL (2.5-4.5) 10/13/21 04:34 Albumin/Globulin Ratio 0.7 Ratio (1.1-2.1) L 10/13/21 04:34 SARS CoV-2 RNA Rapid MIGUEL Negative (NEGATIVE) 10/02/21 07:45 - Assessment and Plan 1: spontaneous RT pneumothorax S/P insertion of chest tube . still with residual small Rt pneumothorax . Pt could be discharged .. light activities . keep dressing intact . to be followed in 4 days . - Problem Patient Problems: Patient Problems Tension pneumothorax (Acute) J93.0 Respiratory distress (Acute) R06.03 HTN (hypertension) (Chronic) I10 CHF (congestive heart failure) (Chronic) I50.9
[2021-10-13 11:42] VITALS: BP 115/64
--- NOTE | 2021-10-17 11:27 | PCM.PROG ---
Progress Note - Progress Note for Day of Date of Exam: 10/12/21 - Subjective Subjective: IS CURRENTLY INPATIENT STATUS FOR TREATMENT OF A SPONTANEOUS PNEUMOTHORAX AND RESPIRATORY DISTRESS. HE HAS A PMH OF CHF AND HTN. TODAY, HE IS ALERT AND ORIENTED, LYING IN BED ON MORNING ROUNDS. HE DENIES CURRENT COMPLAINTS THIS MORNING. ON EXAMINATION, HEART IS REGULAR IN RATE AND RHYTHM. BILATERAL LUNGS NOTED WITH DIMINISHED LUNG SOUNDS THROUGHOUT. CHEST TUBE NOTED TO RIGHT SIDE CHEST WALL. ABDOMEN IS ROUND, SOFT, AND NON-TENDER WITH NORMAL BOWEL SOUNDS NOTED IN ALL QUADRANTS. HIS VITALS THIS MORNING ARE: 97.6-63-15-92%-134/71. LABS WERE OBTAINED. WBC 3.3, RBC 3.68, HGB 10.4, HCT 30.9, SODIUM 140, POTASSIUM 3.8, CARBON DIOXIDE 33.7, BUN 19, CREATININE 1.44, GLUCOSE 84, TOTAL BILI 0.10, AST 23, ALT 18, ALK PHOS 64, TOTAL PROTEIN 6.8, ALBUMIN 2.6. CHEST XRAY REPEATED AND REVEALED: Heart size is normal. [place] are normal. Lungs are well inflated and free of acute infiltrates. Right chest tube remains in place. Trace residual right apical pneumothorax is present significan tly smaller than on the prior examination. Bony thorax is unremarkable. HE IS CURRENTLY RECEIVING: CIPRO 500MG PO BID, PROVENTIL NEBS Q2H PRN, DILAUDID 1-2MG IV Q4H PRN PAIN, PERCOCET 5/325MG PO Q4H PRN, ZOFRAN 4MG IV Q8H PRN, MIL OF MAGNESIA 30ML PO Q12H PRN, COLACE 200MG PO Q12H PRN. HIS HOME MEDICATIONS OF ALLOPURINOL, LIPITOR, LASIX, COZAAR, NITROSTAT, LYRICA, AND SPIRONOLACTONE WERE RESUMED. WE WILL CONTINUE WITH CURRENT PLAN OF CARE TODAY. WILL CONTINUE TO FOLLOW PATIENT. OTHERWISE, WE WILL FOLLOW-UP WITH AM LABS AND CONTINUE TO MONITOR. TIME SPENT ON CLINICAL ASSESSMENT, REVIWING LABS AND IMAGING, DECISION MAKING, AND DOCUMENTATION GREATER THAN 45 MINUTES. - Past Medical Family Social History Past Med/Fam/Surg Hx: No changes since H&P Allergies: Allergies No Known Drug Allergies Allergy (Verified 04/28/19 08:16) - Review of Systems ROS: No change since H&P - Vital Signs and I&O's Vital Signs: Temperature 97.7 F Pulse Rate [Left Apical] 69 Pulse Rate 75 Respiratory Rate 23 Blood Pressure [Left Arm] 155/85 Blood Pressure 115/64 O2 Sat by Pulse Oximetry 92 - Physical Exam Oriented: Normal Eyes: Normal Ear: Normal Nose: Normal Throat: Normal Respiratory: Normal (chest tube in place with clear lung field ..), Generalized Cardiovascular: Normal : Normal Auscultation: Bowel Sounds: Normal Tenderness: Normal Skin: Normal Musculoskeletal: Normal Psychiatric: Normal Mood Description: Calm Affect: Normal Speech Pattern: Clear, Appropriate - Laboratory and Diagnostics Result Diagrams: 10/13/21 04:34 10/13/21 04:34 Labs: Laboratory WBC 3.7 X10^3/uL (3.6-10.0) 10/13/21 04:34 RBC 3.80 X10^6/uL (4.7-6.0) L 10/13/21 04:34 Hgb 10.8 g/dL (13.5-18.0) L 10/13/21 04:34 Hct 32.0 % (42.0-54.0) L 10/13/21 04:34 MCV 84.2 fL (80.0-100.0) 10/13/21 04:34 MCH 28.4 pg (27.0-34.0) 10/13/21 04:34 MCHC 33.8 g/dL (33.0-35.0) 10/13/21 04:34 RDW 13.3 % (11.6-16.5) 10/13/21 04:34 Plt Count 377 X10^3/uL (150.0-450.0) 10/13/21 04:34 MPV 7.8 fL (7.4-11.0) 10/13/21 04:34 Neut % (Auto) 51.2 % (42.0-75.0) 10/13/21 04:34 Lymph % (Auto) 21.9 % (21.0-51.0) 10/13/21 04:34 [place] % (Auto) 13.3 % (0.0-13.0) H 10/13/21 04:34 Eos % (Auto) 13.1 % (0.9-2.9) H 10/13/21 04:34 Baso % (Auto) 0.5 % (0.2-1.0) 10/13/21 04:34 Neut # (Auto) 1.9 x10^3/uL (2.2-4.8) L 10/13/21 04:34 Lymph # (Auto) 0.8 X10^3/uL (1.3-2.9) L 10/13/21 04:34 [place] # (Auto) 0.5 x10^3/uL (0.3-0.8) 10/13/21 04:34 Eos # (Auto) 0.5 x10^3/uL (0.0-0.2) H 10/13/21 04:34 Baso # (Auto) 0.0 X10^3/uL (0.0-0.1) 10/13/21 04:34 Absolute Nucleated RBC 0.1 /100WBC 10/13/21 04:34 Sodium 139 mmol/L (136-145) 10/13/21 04:34 Corrected Sodium TNP 10/13/21 04:34 Potassium 3.7 mmol/L (3.5-5.1) 10/13/21 04:34 Chloride 101 mmol/L (98-107) 10/13/21 04:34 Carbon Dioxide 32.0 mmol/L (21-32) 10/13/21 04:34 BUN 21 mg/dL (7-18) H 10/13/21 04:34 Creatinine 1.46 mg/dL (0.70-1.30) H 10/13/21 04:34 Est GFR (MDRD) Af Amer > 60 (>60) 10/13/21 04:34 Est GFR (MDRD) Non-Af 51 (>60) L 10/13/21 04:34 Glucose 90 mg/dL (65-99) 10/13/21 04:34 Calcium 8.5 mg/dL (8.5-10.1) 10/13/21 04:34 Corrected Calcium 9.5 mg/dL (8.5-10.1) 10/13/21 04:34 Total Bilirubin 0.10 mg/dL (0.2-1.0) L 10/13/21 04:34 AST 22 Units/L (15-37) 10/13/21 04:34 ALT 19 Units/L (12-78) 10/13/21 04:34 Alkaline Phosphatase 73 Units/L (46-116) 10/13/21 04:34 Creatine Kinase 173 Units/L (39-308) 10/02/21 07:55 Troponin I High Sens 20.6 ng/L (4.0-60.0) 10/02/21 07:55 B-Natriuretic Peptide 124 pg/mL (0-79) H 10/02/21 07:55 Total Protein 7.1 g/dL (6.4-8.2) 10/13/21 04:34 Albumin 2.8 g/dL (3.4-5.0) L 10/13/21 04:34 Globulin 4.3 g/dL (2.5-4.5) 10/13/21 04:34 Albumin/Globulin Ratio 0.7 Ratio (1.1-2.1) L 10/13/21 04:34 SARS CoV-2 RNA Rapid MIGUEL Negative (NEGATIVE) 10/02/21 07:45 - Plan (1) Tension pneumothorax Status: Acute Plan: CIPRO 500MG PO BID, PROVENTIL NEBS Q2H PRN, DILAUDID 1-2MG IV Q4H PRN PAIN, PERCOCET 5/325MG PO Q4H PRN, ZOFRAN 4MG IV Q8H PRN, MIL OF MAGNESIA 30ML PO Q12H PRN, COLACE 200MG PO Q12H PRN. RESUME HOME MEDS. MONITOR LABS AND CHEST XRAY (2) Respiratory distress Status: Acute (3) CHF (congestive heart failure) Status: Chronic Qualifiers: Heart failure chronicity: acute on chronic (4) HTN (hypertension) Status: Chronic Qualifiers: Hypertension type: primary hypertension Qualified Code(s): I10 - Essential (primary) hypertension
== END 2021-10-13 11:15 | disposition home or self-care (01) | DRG 201 ==
LOC: ER 07:18 → ICU 09:35
PROVIDERS: ADMIT Internal Medicine; ATTEND Internal Medicine
DX: I50.9 Heart failure, unspecified; I11.0 Hypertensive heart disease with heart failure; J93.0 Spontaneous tension pneumothorax; R06.02 Shortness of breath; Z20.822 Contact with and (suspected) exposure to COVID-19; R06.03 Acute respiratory distress; R26.89 Other abnormalities of gait and mobility; R07.89 Other chest pain

== ENCOUNTER 2022-02-03 17:32 | Inpatient (IN) ==
--- NOTE | 2022-02-03 17:57 | EKG ---
Test Reason : CHEST PAIN Blood Pressure : */* mmHG Vent. Rate : 90 BPM Atrial Rate : 90 BPM P-R Int : 172 ms QRS Dur : 88 ms QT Int : 364 ms P-R-T Axes : 104 72 21 degrees QTc Int : 445 ms Sinus rhythm with occasional premature ventricular complexes and premature atrial complexes Biventricular hypertrophy Cannot rule out Anterior infarct , age undetermined Abnormal ECG No previous ECGs available Confirmed by Deep Lyle ([id number]) on 02/04/2022 9:23:49 AM Referred By: Confirmed By: Deep Lyle
--- NOTE | 2022-02-03 18:17 | DR.SOBA ---
HPI Time Seen Time Seen by Provider: 02/03/22 18:00 Primary Care Physician Primary Care Physician: DR WINSTON Complaints Chief Complaint:: PT C/O SUDDEN ONSET OF RIGHT SIDED CHEST PAIN DESCRIBED CONSTANT HEAVY PRESSURE THAT STARTED AROUND NOON WHILE STANDING AND COOKING TODAY. PT ALSO STATES THAT THEY PAIN MAKE HIM FEEL LIKE IT'S HARD TO TAKE A DEEP BREATH. COVID-19 Coronavirus risk:travel/contact w/high risk person: No Has patient experienced Coronavirus symptoms: No Reviewed Nurses Notes Reviewed: Yes Source History Provided: Patient Mode of Arrival Mode of Arrival: Ambulatory Timing Onset of Chief Complaint: 02/03/22 PMH PMH Past Medical History: Yes Past Medical History: Arthritis, Asthma, CHF, Dyslipidemia and Hypertension Past Medical History Comment: TENSION PNEUMOTHORAX Past Surgical History: Yes Surgical History: Ortho Surgery Past Surgical History Comment: RIGHT WRIST SURGERY, LEFT HIP SURGERY Family History History of Family Medical Conditions: No Family Medical History: Cancer Social History Does patient currently use any type of tobacco product: Yes Have you used tobacco products in the last 12 months: Yes Type of Tobacco Use: Cigarettes Does any household member use tobacco: No Alcohol Use: DAILY Do you use any recreational Drugs:: No Lives With: Family Lives Where: Home Travel Risk Coronavirus risk:travel/contact w/high risk person: No Has patient experienced Coronavirus symptoms: No Infectious screening In the last 2 months have you had wt loss of >10#?: NO Have you had fever, night sweats or hemotysis?: No Have you traveled outside the country in the last 6 months?: No Isolation: Standard PE Vital Signs Vitals: Temperature 98.3 F Pulse Rate 77 Respiratory Rate 16 Blood Pressure [Left Arm] 120/82 Blood Pressure 179/96 O2 Sat by Pulse Oximetry 96 ROR Labs Reviewed Result Diagrams: 02/07/22 04:20 02/07/22 04:20 Laboratory: WBC 4.1 X10^3/uL (3.6-10.0) 02/03/22 18:00 RBC 4.16 X10^6/uL (4.7-6.0) L 02/03/22 18:00 Hgb 11.8 g/dL (13.5-18.0) L 02/03/22 18:00 Hct 34.7 % (42.0-54.0) L 02/03/22 18:00 MCV 83.4 fL (80.0-100.0) 02/03/22 18:00 MCH 28.3 pg (27.0-34.0) 02/03/22 18:00 MCHC 33.9 g/dL (33.0-35.0) 02/03/22 18:00 RDW 15.2 % (11.6-16.5) 02/03/22 18:00 Plt Count 238 X10^3/uL (150.0-450.0) 02/03/22 18:00 MPV 8.6 fL (7.4-11.0) 02/03/22 18:00 Neut % (Auto) 58.5 % (42.0-75.0) 02/03/22 18:00 Lymph % (Auto) 24.0 % (21.0-51.0) 02/03/22 18:00 [place] % (Auto) 12.1 % (0.0-13.0) 02/03/22 18:00 Eos % (Auto) 3.5 % (0.9-2.9) H 02/03/22 18:00 Baso % (Auto) 1.9 % (0.2-1.0) H 02/03/22 18:00 Neut # (Auto) 2.4 x10^3/uL (2.2-4.8) 02/03/22 18:00 Lymph # (Auto) 1.0 X10^3/uL (1.3-2.9) L 02/03/22 18:00 [place] # (Auto) 0.5 x10^3/uL (0.3-0.8) 02/03/22 18:00 Eos # (Auto) 0.1 x10^3/uL (0.0-0.2) 02/03/22 18:00 Baso # (Auto) 0.1 X10^3/uL (0.0-0.1) 02/03/22 18:00 Absolute Nucleated RBC 0.0 /100WBC 02/03/22 18:00 D-Dimer 1.16 ug/ml (0.0-0.57) H 02/03/22 18:00 Sodium 140 mmol/L (136-145) 02/03/22 18:00 Corrected Sodium TNP 02/03/22 18:00 Potassium 4.2 mmol/L (3.5-5.1) 02/03/22 18:00 Chloride 103 mmol/L (98-107) 02/03/22 18:00 Carbon Dioxide 30.1 mmol/L (21-32) 02/03/22 18:00 BUN 22 mg/dL (7-18) H 02/03/22 18:00 Creatinine 1.39 mg/dL (0.70-1.30) H 02/03/22 18:00 Est GFR (MDRD) Af Amer > 60 (>60) 02/03/22 18:00 Est GFR (MDRD) Non-Af 54 (>60) L 02/03/22 18:00 Glucose 93 mg/dL (65-99) 02/03/22 18:00 Calcium 8.2 mg/dL (8.5-10.1) L 02/03/22 18:00 Corrected Calcium 8.9 mg/dL (8.5-10.1) 02/03/22 18:00 Total Bilirubin 0.40 mg/dL (0.2-1.0) 02/03/22 18:00 AST 28 Units/L (15-37) 02/03/22 18:00 ALT 16 Units/L (12-78) 02/03/22 18:00 Alkaline Phosphatase 83 Units/L (46-116) 02/03/22 18:00 Creatine Kinase 228 Units/L (39-308) 02/03/22 18:00 Troponin I High Sens 32.2 ng/L (4.0-60.0) 02/03/22 18:00 Total Protein 7.3 g/dL (6.4-8.2) 02/03/22 18:00 Albumin 3.1 g/dL (3.4-5.0) L 02/03/22 18:00 Globulin 4.2 g/dL (2.5-4.5) 02/03/22 18:00 Albumin/Globulin Ratio 0.7 Ratio (1.1-2.1) L 02/03/22 18:00 Opioid Opioid Risk Tool Age ([place] if 16-45): No History of Preadolescent Sexual Abuse: No Total: 0 Total Score Risk Category: Low Risk Copyright: Laron SANCHEZ predicting aberrant behaviors Discharge Plan Discharge Plan Patient Disposition: 01 HOME, SELF-CARE Condition: Stable
[2022-02-03 18:20] LABS: MEAN PLATELET VOLUME 8.6 fL (7.4-11.0)
[2022-02-03 18:23] LABS: BASOPHILS # (AUTO) 0.1 X10^3/uL (0.0-0.1); BASOPHILS % (AUTO) 1.9 % (0.2-1.0); EOSINOPHILS # (AUTO) 0.1 x10^3/uL (0.0-0.2); EOSINOPHILS % (AUTO) 3.5 % (0.9-2.9); HEMATOCRIT 34.7 % (42.0-54.0); HEMOGLOBIN 11.8 g/dL (13.5-18.0); MEAN CORPUSCULAR HEMOGLOBIN 28.3 pg (27.0-34.0); MEAN CORPUSCULAR HGB CONC 33.9 g/dL (33.0-35.0); MEAN CORPUSCULAR VOLUME 83.4 fL (80.0-100.0); MONOCYTES # (AUTO) 0.5 x10^3/uL (0.3-0.8); MONOCYTES % (AUTO) 12.1 % (0.0-13.0); NEUTROPHILS # (AUTO) 2.4 x10^3/uL (2.2-4.8); NEUTROPHILS % (AUTO) 58.5 % (42.0-75.0); RED BLOOD COUNT 4.16 X10^6/uL (4.7-6.0); RED CELL DISTRIBUTION WIDTH 15.2 % (11.6-16.5); WHITE BLOOD COUNT 4.1 X10^3/uL (3.6-10.0)
[2022-02-03 18:31] LABS: ALANINE AMINOTRANSFERASE 16 Units/L (12-78); ALBUMIN 3.1 g/dL (3.4-5.0); ALKALINE PHOSPHATASE 83 Units/L (46-116); ASPARTATE AMINO TRANSFERASE 28 Units/L (15-37); BLOOD UREA NITROGEN 22 mg/dL (7-18); CALCIUM 8.2 mg/dL (8.5-10.1); CARBON DIOXIDE 30.1 mmol/L (21-32); CHLORIDE 103 mmol/L (98-107); COR CA(FOR HYPOALB) 8.9 mg/dL (8.5-10.1); CREATINE KINASE 228 Units/L (39-308); CREATININE 1.39 mg/dL (0.70-1.30); SODIUM 140 mmol/L (136-145); TOTAL PROTEIN 7.3 g/dL (6.4-8.2); eGFR NON BLACK RACES 54 (>60)
--- NOTE | 2022-02-03 19:07 | RAD ---
HISTORYSOB, CHEST PAINSSTUDYCHEST, 1 VIEWCOMPARISONSeptember 2021TECHNIQUEChest radiographic imaging, AP portable projection, 1 imageFINDINGSNo cardiomegaly.No focal airspace disease.No pleural effusion.80 percent right pneumothorax with slight leftward mediastinal shift.No acute osseous abnormality.IMPRESSIONRight tension pneumothorax.Electronically signed by: Pedro Rodriguez (Feb 03, 2022 19:05:43)
[2022-02-03] MEDS ORDERED: BETADINE SOLN ONE (20:11)
[2022-02-03] MEDS ORDERED: XYLOCAINE 2 % (PLAIN) ONE (20:11)
[2022-02-03] MEDS ORDERED: DILAUDID INJ ONE (20:23)
[2022-02-03] MEDS ORDERED: DILAUDID INJ IVP ONE (20:23)
[2022-02-03] MEDS ORDERED: XYLOCAINE 2 % (PLAIN) IJ ONE (21:34)
[2022-02-03] MEDS ORDERED: BETADINE SOLN TOP ONE (21:34)
--- NOTE | 2022-02-03 21:41 | RAD ---
PROCEDURE: Chest X-ray 1 View .HISTORY: post chest tube insertion .TECHNIQUE: AP view .COMPARISON: 02/03/2022 chest x-ray done at 6:41 p.m..TECHNICAL QUALITY: Satisfactory .FINDINGS:Interval placement of a chest tube on the right with the tip laterally located right upper lobe region.Normal size heart.Mediastinum and hilar regions show no masses or lymphadenopathy .Normal central vascularity .Probable 5-10 percent pneumothorax right apex. No pulmonary consolidation or atelectasis. No pleural fluid.No acute bony abnormality .IMPRESSION:1. Chest tube placement on the right with reduction of the patient's pneumothorax to the 5-10 percent range at the apex.2. No other acute change identified.Electronically signed by: Micah Galindo (Feb 03, 2022 21:39:40)
[2022-02-03 23:05] VITALS: BMI 21.1
[2022-02-03] MEDS ORDERED: LOVENOX INJ 40 MG SYR SC ONE (23:51)
[2022-02-03] MEDS: ANCEF VIAL 1 GRAM IVP SCH (23:58)
[2022-02-03] MEDS: NORCO 5/325 MG TAB PO PRN (23:59)
[2022-02-04] MEDS: NS 1,000 ML IV 1,000 ML IV SCH ×3 (00:02→18:55)
[2022-02-04 05:13] LABS: BASOPHILS # (AUTO) 0.1 X10^3/uL (0.0-0.1); BASOPHILS % (AUTO) 1.3 % (0.2-1.0); EOSINOPHILS # (AUTO) 0.1 x10^3/uL (0.0-0.2); EOSINOPHILS % (AUTO) 1.7 % (0.9-2.9); HEMATOCRIT 32.9 % (42.0-54.0); LYMPHOCYTES # (AUTO) 1.1 X10^3/uL (1.3-2.9); LYMPHOCYTES % (AUTO) 15.3 % (21.0-51.0); MEAN CORPUSCULAR HEMOGLOBIN 28.1 pg (27.0-34.0); MEAN CORPUSCULAR HGB CONC 33.4 g/dL (33.0-35.0); MEAN CORPUSCULAR VOLUME 84.2 fL (80.0-100.0); MONOCYTES # (AUTO) 0.5 x10^3/uL (0.3-0.8); MONOCYTES % (AUTO) 6.8 % (0.0-13.0); NEUTROPHILS # (AUTO) 5.2 x10^3/uL (2.2-4.8); NEUTROPHILS % (AUTO) 74.9 % (42.0-75.0); RED CELL DISTRIBUTION WIDTH 15.2 % (11.6-16.5)
[2022-02-04 05:25] LABS: ALANINE AMINOTRANSFERASE 13 Units/L (12-78); ALBUMIN 2.7 g/dL (3.4-5.0); ALKALINE PHOSPHATASE 68 Units/L (46-116); ASPARTATE AMINO TRANSFERASE 20 Units/L (15-37); BLOOD UREA NITROGEN 17 mg/dL (7-18); CALCIUM 7.8 mg/dL (8.5-10.1); CARBON DIOXIDE 26.9 mmol/L (21-32); CHLORIDE 105 mmol/L (98-107); COR CA(FOR HYPOALB) 8.8 mg/dL (8.5-10.1); CREATININE 1.03 mg/dL (0.70-1.30); SODIUM 140 mmol/L (136-145); TOTAL PROTEIN 6.4 g/dL (6.4-8.2); eGFR NON BLACK RACES > 60 (>60)
[2022-02-04] MEDS: NORCO 5/325 MG TAB PO PRN (05:50)
[2022-02-04] MEDS: ANCEF VIAL 1 GRAM IVP SCH ×3 (06:08→21:15)
[2022-02-04] MEDS: MAGNESIUM SULFATE 1 GRAM/100 mL PREMIX 1 GM/100 ML BAG IV PRN ×2 (06:21→10:04)
[2022-02-04] MEDS ORDERED: NORCO 10/325 TAB PO PRN (09:45)
[2022-02-04] MEDS: LOVENOX INJ 40 MG SYR SC SCH (10:04)
--- NOTE | 2022-02-04 11:30 | DR.H&P ---
H&P History & Physical for Day of: H&P Date: 02/03/22 Chief Complaint Chief Complaint: Acute shortness of breath Allergies Allergies Allergy/AdvReac Type Severity Reaction Status Date / Time No Known Drug Allergies Allergy Verified 04/28/19 08:16 History of Present Illness History of Present Illness: This is a pleasant 66-year-old black male who presented to the emergency department yesterday with acute shortness of breath and chest pain. He reported this happened when he was cooking lunch yesterday around noon. Work-up in the emergency department revealed that he had a 80% tension pneumothorax on the right side and this is a second time that the patient has had a right-sided spontaneous pneumothorax. Our general surgeon Dr. Solorzano has placed a chest tube and the patient lung has re-expanded with a 10 to 20% pneumothorax remaining. Past Medical History Past Medical History: Arthritis, Asthma, CHF, Dyslipidemia and Hypertension Past Surgical History Surgical History: Ortho Surgery Family History Family Medical History: Hypertension Social History Does patient currently use any type of tobacco product: Yes Have you used tobacco products in the last 12 months: Yes Type of Tobacco Use: Cigarettes How many years tobacco product used: 40 Does any household member use tobacco: No Alcohol Use: DAILY Drug Use: None Medications Home Medications: No Known Drug Allergies Allergy (Verified 04/28/19 08:16) CONTINUE taking the following medications albuterol sulfate 90 mcg/actuation aerosol inhaler 2 puff inhalation Q4HR 02/03/22 [History] Labs Result Diagrams: 02/04/22 04:22 02/04/22 04:22 Labs: Laboratory WBC 7.0 X10^3/uL (3.6-10.0) 02/04/22 04:22 RBC 3.90 X10^6/uL (4.7-6.0) L 02/04/22 04:22 Hgb 11.0 g/dL (13.5-18.0) L 02/04/22 04:22 Hct 32.9 % (42.0-54.0) L 02/04/22 04:22 MCV 84.2 fL (80.0-100.0) 02/04/22 04:22 MCH 28.1 pg (27.0-34.0) 02/04/22 04:22 MCHC 33.4 g/dL (33.0-35.0) 02/04/22 04:22 RDW 15.2 % (11.6-16.5) 02/04/22 04:22 Plt Count 208 X10^3/uL (150.0-450.0) 02/04/22 04:22 MPV 9.0 fL (7.4-11.0) 02/04/22 04:22 Neut % (Auto) 74.9 % (42.0-75.0) 02/04/22 04:22 Lymph % (Auto) 15.3 % (21.0-51.0) L 02/04/22 04:22 [place] % (Auto) 6.8 % (0.0-13.0) 02/04/22 04:22 Eos % (Auto) 1.7 % (0.9-2.9) 02/04/22 04:22 Baso % (Auto) 1.3 % (0.2-1.0) H 02/04/22 04:22 Neut # (Auto) 5.2 x10^3/uL (2.2-4.8) H 02/04/22 04:22 Lymph # (Auto) 1.1 X10^3/uL (1.3-2.9) L 02/04/22 04:22 [place] # (Auto) 0.5 x10^3/uL (0.3-0.8) 02/04/22 04:22 Eos # (Auto) 0.1 x10^3/uL (0.0-0.2) 02/04/22 04:22 Baso # (Auto) 0.1 X10^3/uL (0.0-0.1) 02/04/22 04:22 Absolute Nucleated RBC 0.1 /100WBC 02/04/22 04:22 D-Dimer 1.16 ug/ml (0.0-0.57) H 02/03/22 18:00 Sodium 140 mmol/L (136-145) 02/04/22 04:22 Corrected Sodium TNP 02/04/22 04:22 Potassium 3.3 mmol/L (3.5-5.1) L 02/04/22 04:22 Chloride 105 mmol/L (98-107) 02/04/22 04:22 Carbon Dioxide 26.9 mmol/L (21-32) 02/04/22 04:22 BUN 17 mg/dL (7-18) 02/04/22 04:22 Creatinine 1.03 mg/dL (0.70-1.30) 02/04/22 04:22 Est GFR (MDRD) Af Amer > 60 (>60) 02/04/22 04:22 Est GFR (MDRD) Non-Af > 60 (>60) 02/04/22 04:22 Glucose 83 mg/dL (65-99) 02/04/22 04:22 Calcium 7.8 mg/dL (8.5-10.1) L 02/04/22 04:22 Corrected Calcium 8.8 mg/dL (8.5-10.1) 02/04/22 04:22 Magnesium 1.6 mg/dL (2.0-2.9) L 02/04/22 04:22 Total Bilirubin 0.30 mg/dL (0.2-1.0) 02/04/22 04:22 AST 20 Units/L (15-37) 02/04/22 04:22 ALT 13 Units/L (12-78) 02/04/22 04:22 Alkaline Phosphatase 68 Units/L (46-116) 02/04/22 04:22 Creatine Kinase 228 Units/L (39-308) 02/03/22 18:00 Troponin I High Sens 32.2 ng/L (4.0-60.0) 02/03/22 18:00 Total Protein 6.4 g/dL (6.4-8.2) 02/04/22 04:22 Albumin 2.7 g/dL (3.4-5.0) L 02/04/22 04:22 Globulin 3.7 g/dL (2.5-4.5) 02/04/22 04:22 Albumin/Globulin Ratio 0.7 Ratio (1.1-2.1) L 02/04/22 04:22 Review of Systems Constitutional: No Symptoms Reported Eyes: No Symptoms Reported ENT: No Symptoms Reported Respiratory: Shortness of Breath Cardiovascular: Chest Pain Gastrointestinal: No Symptoms Reported Genitourinary: No Symptoms Reported Musculoskeletal: No Symptoms Reported Skin: No Symptoms Reported Neurological: No Symptoms Reported Physical Exam Vital Signs: Temperature 97.4 F Pulse Rate [Brachial] 61 Pulse Rate 77 Respiratory Rate 18 Blood Pressure [Left Arm] 129/70 Blood Pressure 179/96 O2 Sat by Pulse Oximetry 92 Oriented: Normal, Time, Person and Place Eyes: Normal Ear: Normal Nose: Normal Throat: Normal Respiratory: RUL Diminished, RML Diminished and RLL Diminished Cardiovascular: Normal Palpation: Normal Tenderness: Normal Skin: Normal Musculoskeletal: Normal Psychiatric: Normal Mood Description: Calm Affect: Normal Speech Pattern: Clear and Appropriate Assessment/Plan (1) Tension pneumothorax: Status: Acute Plan: Continue with chest tube at this time. (2) HTN (hypertension): Qualifiers: Hypertension type: primary hypertension Qualified Code(s): I10 - Essential (primary) hypertension Status: Chronic Plan: Monitor patient's blood pressure and continue him on his antihypertensives. (3) CHF (congestive heart failure): Qualifiers: Heart failure chronicity: acute on chronic Status: Chronic (4) Shortness of breath: Status: Acute Plan: Continue with chest tube and supplemental oxygen.
--- NOTE | 2022-02-04 11:39 | PCM.PROG ---
Progress Note Progress Note for Day of Date of Exam: 02/04/22 Subjective Subjective: The patient is resting comfortably this morning. Chest tube is in place and working well. There is only 5 to 10% of the right apical pneumothorax that is remaining. He is noted to have some hypokalemia and hypomagnesemia this morning which we will correct. He is mildly anemic with a hemoglobin of 11. He has no new complaints this morning. Past Medical Family Social History Allergies: Allergies No Known Drug Allergies Allergy (Verified 04/28/19 08:16) Review of Systems ROS: No change since H&P Vital Signs and I&O's Vital Signs: Temperature 97.4 F Pulse Rate [Brachial] 61 Pulse Rate 77 Respiratory Rate 18 Blood Pressure [Left Arm] 129/70 Blood Pressure 179/96 O2 Sat by Pulse Oximetry 92 Intake and Output: Intake & Output 02/01/22 02/02/22 02/03/22 02/04/22 11:59 11:59 11:59 11:59 Intake Total 1175 / 1175 Output Total 893 / 893 Balance 282 / 282 Physical Exam Oriented: Normal, Time, Person and Place Eyes: Normal Ear: Normal Nose: Normal Throat: Normal Respiratory: Right and Diminished Cardiovascular: Normal Tenderness: Normal Skin: Normal Musculoskeletal: Normal Psychiatric: Normal Mood Description: Calm Affect: Normal Speech Pattern: Clear and Appropriate Laboratory and Diagnostics Result Diagrams: 02/04/22 04:22 02/04/22 04:22 Labs: Laboratory WBC 7.0 X10^3/uL (3.6-10.0) 02/04/22 04:22 RBC 3.90 X10^6/uL (4.7-6.0) L 02/04/22 04:22 Hgb 11.0 g/dL (13.5-18.0) L 02/04/22 04:22 Hct 32.9 % (42.0-54.0) L 02/04/22 04:22 MCV 84.2 fL (80.0-100.0) 02/04/22 04:22 MCH 28.1 pg (27.0-34.0) 02/04/22 04:22 MCHC 33.4 g/dL (33.0-35.0) 02/04/22 04:22 RDW 15.2 % (11.6-16.5) 02/04/22 04:22 Plt Count 208 X10^3/uL (150.0-450.0) 02/04/22 04:22 MPV 9.0 fL (7.4-11.0) 02/04/22 04:22 Neut % (Auto) 74.9 % (42.0-75.0) 02/04/22 04:22 Lymph % (Auto) 15.3 % (21.0-51.0) L 02/04/22 04:22 [place] % (Auto) 6.8 % (0.0-13.0) 02/04/22 04:22 Eos % (Auto) 1.7 % (0.9-2.9) 02/04/22 04:22 Baso % (Auto) 1.3 % (0.2-1.0) H 02/04/22 04:22 Neut # (Auto) 5.2 x10^3/uL (2.2-4.8) H 02/04/22 04:22 Lymph # (Auto) 1.1 X10^3/uL (1.3-2.9) L 02/04/22 04:22 [place] # (Auto) 0.5 x10^3/uL (0.3-0.8) 02/04/22 04:22 Eos # (Auto) 0.1 x10^3/uL (0.0-0.2) 02/04/22 04:22 Baso # (Auto) 0.1 X10^3/uL (0.0-0.1) 02/04/22 04:22 Absolute Nucleated RBC 0.1 /100WBC 02/04/22 04:22 D-Dimer 1.16 ug/ml (0.0-0.57) H 02/03/22 18:00 Sodium 140 mmol/L (136-145) 02/04/22 04:22 Corrected Sodium TNP 02/04/22 04:22 Potassium 3.3 mmol/L (3.5-5.1) L 02/04/22 04:22 Chloride 105 mmol/L (98-107) 02/04/22 04:22 Carbon Dioxide 26.9 mmol/L (21-32) 02/04/22 04:22 BUN 17 mg/dL (7-18) 02/04/22 04:22 Creatinine 1.03 mg/dL (0.70-1.30) 02/04/22 04:22 Est GFR (MDRD) Af Amer > 60 (>60) 02/04/22 04:22 Est GFR (MDRD) Non-Af > 60 (>60) 02/04/22 04:22 Glucose 83 mg/dL (65-99) 02/04/22 04:22 Calcium 7.8 mg/dL (8.5-10.1) L 02/04/22 04:22 Corrected Calcium 8.8 mg/dL (8.5-10.1) 02/04/22 04:22 Magnesium 1.6 mg/dL (2.0-2.9) L 02/04/22 04:22 Total Bilirubin 0.30 mg/dL (0.2-1.0) 02/04/22 04:22 AST 20 Units/L (15-37) 02/04/22 04:22 ALT 13 Units/L (12-78) 02/04/22 04:22 Alkaline Phosphatase 68 Units/L (46-116) 02/04/22 04:22 Creatine Kinase 228 Units/L (39-308) 02/03/22 18:00 Troponin I High Sens 32.2 ng/L (4.0-60.0) 02/03/22 18:00 Total Protein 6.4 g/dL (6.4-8.2) 02/04/22 04:22 Albumin 2.7 g/dL (3.4-5.0) L 02/04/22 04:22 Globulin 3.7 g/dL (2.5-4.5) 02/04/22 04:22 Albumin/Globulin Ratio 0.7 Ratio (1.1-2.1) L 02/04/22 04:22 Radiology Reviewed: Yes Plan (1) Tension pneumothorax: Status: Acute Narrative Support Text: Much improved since admission yesterday. Only 5 to 10% right apical pneumothorax remains. Plan: Continue with chest tube at this time. (2) HTN (hypertension): Status: Chronic Qualifiers: Hypertension type: primary hypertension Qualified Code(s): I10 - Essential (primary) hypertension Plan: Monitor patient's blood pressure and continue him on his antihypertensives. (3) CHF (congestive heart failure): Status: Chronic Qualifiers: Heart failure chronicity: acute on chronic (4) Shortness of breath: Status: Acute Plan: Continue with chest tube and supplemental oxygen. (5) Hypokalemia: Status: Acute Plan: Potassium replacement protocol. (6) Hypomagnesemia: Status: Acute Plan: Replace with magnesium.
[2022-02-04] MEDS ORDERED: KLOR-CON PO PRN (12:20)
[2022-02-04] MEDS ORDERED: POTASSIUM CHLORIDE LIQ 20 MEQ UDC PO PRN (12:20)
[2022-02-04] MEDS ORDERED: MICRO K EXTEN CAP 10 MEQ PO PRN (12:20)
[2022-02-04] MEDS ORDERED: K-RIDER 10 MEQ/NS 100 ML 10 MEQ/100 ML BAG IV PRN (12:20)
[2022-02-04] MEDS ORDERED: K-DUR TAB 20 MEQ PO PRN (12:20)
[2022-02-04] MEDS ORDERED: POTASSIUM CHL 60 MEQ/NS 0.45% 500 ML IV PRN (12:20)
[2022-02-04] MEDS ORDERED: POTASSIUM CHL 40 MEQ/NS 0.45% 500 ML IV PRN (12:20)
[2022-02-04] MEDS: ZYLOPRIM PO SCH (14:03)
[2022-02-04] MEDS: COZAAR PO SCH (14:03)
[2022-02-04] MEDS: ALDACTONE TAB 25 MG PO SCH (14:03)
[2022-02-04] MEDS: DILAUDID INJ IVP PRN ×2 (14:19→21:20)
--- NOTE | 2022-02-04 15:24 | RAD ---
HISTORYRight-sided tension pneumothoraxSTUDYPortable AP chestCOMPARISONDecember 2021FINDINGSStable position of right chest tube. There is interval increase in size of the right pneumothorax, now estimated at 15-20 percent. The pneumothorax extends from apex to diaphragm. There is no tension effect demonstrated.IMPRESSIONSlight increase in size of right pneumothorax.Electronically signed by: FLACO ESCOTO (Feb 04, 2022 15:22:34)
[2022-02-04] MEDS: LASIX PO SCH (21:15)
[2022-02-04] MEDS: COREG TAB 12.5 MG PO SCH (21:16)
[2022-02-04] MEDS: LYRICA CAP 75 mg PO SCH (21:16)
[2022-02-04] MEDS: LIPITOR TAB 40 MG PO SCH (21:16)
[2022-02-05 04:52] LABS: BASOPHILS % (AUTO) 1.3 % (0.2-1.0); EOSINOPHILS # (AUTO) 0.2 x10^3/uL (0.0-0.2); EOSINOPHILS % (AUTO) 6.6 % (0.9-2.9); HEMATOCRIT 32.5 % (42.0-54.0); HEMOGLOBIN 10.6 g/dL (13.5-18.0); LYMPHOCYTES # (AUTO) 0.9 X10^3/uL (1.3-2.9); LYMPHOCYTES % (AUTO) 25.5 % (21.0-51.0); MEAN CORPUSCULAR HEMOGLOBIN 27.8 pg (27.0-34.0); MEAN CORPUSCULAR HGB CONC 32.7 g/dL (33.0-35.0); MEAN CORPUSCULAR VOLUME 85.2 fL (80.0-100.0); MEAN PLATELET VOLUME 9.1 fL (7.4-11.0); MONOCYTES # (AUTO) 0.4 x10^3/uL (0.3-0.8); MONOCYTES % (AUTO) 12.3 % (0.0-13.0); NEUTROPHILS # (AUTO) 1.9 x10^3/uL (2.2-4.8); NEUTROPHILS % (AUTO) 54.3 % (42.0-75.0); RED BLOOD COUNT 3.81 X10^6/uL (4.7-6.0); RED CELL DISTRIBUTION WIDTH 15.1 % (11.6-16.5); WHITE BLOOD COUNT 3.4 X10^3/uL (3.6-10.0)
[2022-02-05 04:59] LABS: ALANINE AMINOTRANSFERASE 8 Units/L (12-78); ALBUMIN 2.5 g/dL (3.4-5.0); ALKALINE PHOSPHATASE 63 Units/L (46-116); ASPARTATE AMINO TRANSFERASE 18 Units/L (15-37); BLOOD UREA NITROGEN 11 mg/dL (7-18); CALCIUM 8.1 mg/dL (8.5-10.1); CHLORIDE 103 mmol/L (98-107); COR CA(FOR HYPOALB) 9.3 mg/dL (8.5-10.1); CREATININE 1.02 mg/dL (0.70-1.30); MAGNESIUM 1.8 mg/dL (2.0-2.9); SODIUM 138 mmol/L (136-145); TOTAL PROTEIN 6.3 g/dL (6.4-8.2); eGFR NON BLACK RACES > 60 (>60)
[2022-02-05] MEDS: ANCEF VIAL 1 GRAM IVP SCH ×3 (05:14→21:07)
[2022-02-05] MEDS: NS 1,000 ML IV 1,000 ML IV SCH ×2 (07:46→16:10)
--- NOTE | 2022-02-05 07:58 | RAD ---
HISTORYRT SIDE TENSION PNEUMOTHORAXSTUDYCHEST, 1 [id number]/25/2022FINDINGSSmall peripheral areas of opacity in the right lung could be atelectasis. The appearance is not significantly changed from yesterday.Possible minimal atelectasis also noted in the left lung unchanged.There is a small right pneumothorax. When accounting for differences in position probably not changed significantly. It measures about 10 mm right lateral chest.Heart size is normal.Bones are unremarkable.Right chest tube is present lateral to the right hilum, unchanged in position.EKG leads are noted.IMPRESSION1. Stable small right pneumothorax2. Stable small areas of bilateral atelectasisElectronically signed by: Tom Viera (Feb 05, 2022 07:56:10)
[2022-02-05] MEDS: LASIX PO SCH ×2 (08:35→20:19)
[2022-02-05] MEDS: ZYLOPRIM PO SCH (08:35)
[2022-02-05] MEDS: ALDACTONE TAB 25 MG PO SCH (08:35)
[2022-02-05] MEDS: COZAAR PO SCH (08:36)
[2022-02-05] MEDS: COREG TAB 12.5 MG PO SCH ×2 (08:36→20:19)
[2022-02-05] MEDS: LYRICA CAP 75 mg PO SCH ×2 (08:36→20:18)
[2022-02-05] MEDS: MAGNESIUM SULFATE 1 GRAM/100 mL PREMIX 1 GM/100 ML BAG IV PRN (08:36)
[2022-02-05] MEDS: LOVENOX INJ 40 MG SYR SC SCH (08:37)
--- NOTE | 2022-02-05 10:17 | DR.PROGNOT ---
Hospital Progress Notes - Progress Note for Day of: Progress Note Date: 02/05/22 - Chief Complaint Chief Complaint: moderate RT chest pain ,, no SOB . chest X Ray stil showing about 10% pneumothorax . - Past Medical Family Social History Past Med/Fam/Surg Hx: No changes since H&P Allergies: Allergies No Known Drug Allergies Allergy (Verified 04/28/19 08:16) - Review Of Systems ROS: No change since H&P - Vital Signs Vital Signs: Temperature 98.2 F Pulse Rate [Brachial] 73 Pulse Rate 77 Respiratory Rate 18 Blood Pressure [Left Arm] 124/69 Blood Pressure 179/96 O2 Sat by Pulse Oximetry 98 - Physical Exam Oriented: Normal, Time, Person, Place Eyes: Normal Ear: Normal Nose: Normal Throat: Normal Respiratory: Normal, Right Cardiovascular: Normal GI:Palpation: Normal GI: Tenderness: Normal Skin: Normal Musculoskeletal: Normal Psychiatric: Normal Mood Description: Calm Affect: Normal Speech Pattern: Clear, Appropriate - Laboratory and Diagnostics Result Diagrams: 02/05/22 04:10 02/05/22 04:10 Labs: Laboratory WBC 3.4 X10^3/uL (3.6-10.0) L 02/05/22 04:10 RBC 3.81 X10^6/uL (4.7-6.0) L 02/05/22 04:10 Hgb 10.6 g/dL (13.5-18.0) L 02/05/22 04:10 Hct 32.5 % (42.0-54.0) L 02/05/22 04:10 MCV 85.2 fL (80.0-100.0) 02/05/22 04:10 MCH 27.8 pg (27.0-34.0) 02/05/22 04:10 MCHC 32.7 g/dL (33.0-35.0) L 02/05/22 04:10 RDW 15.1 % (11.6-16.5) 02/05/22 04:10 Plt Count 212 X10^3/uL (150.0-450.0) 02/05/22 04:10 MPV 9.1 fL (7.4-11.0) 02/05/22 04:10 Neut % (Auto) 54.3 % (42.0-75.0) 02/05/22 04:10 Lymph % (Auto) 25.5 % (21.0-51.0) 02/05/22 04:10 [place] % (Auto) 12.3 % (0.0-13.0) 02/05/22 04:10 Eos % (Auto) 6.6 % (0.9-2.9) H 02/05/22 04:10 Baso % (Auto) 1.3 % (0.2-1.0) H 02/05/22 04:10 Neut # (Auto) 1.9 x10^3/uL (2.2-4.8) L 02/05/22 04:10 Lymph # (Auto) 0.9 X10^3/uL (1.3-2.9) L 02/05/22 04:10 [place] # (Auto) 0.4 x10^3/uL (0.3-0.8) 02/05/22 04:10 Eos # (Auto) 0.2 x10^3/uL (0.0-0.2) 02/05/22 04:10 Baso # (Auto) 0.0 X10^3/uL (0.0-0.1) 02/05/22 04:10 Absolute Nucleated RBC 0.2 /100WBC 02/05/22 04:10 D-Dimer 1.16 ug/ml (0.0-0.57) H 02/03/22 18:00 Sodium 138 mmol/L (136-145) 02/05/22 04:10 Corrected Sodium TNP 02/05/22 04:10 Potassium 3.9 mmol/L (3.5-5.1) 02/05/22 04:10 Chloride 103 mmol/L (98-107) 02/05/22 04:10 Carbon Dioxide 29.0 mmol/L (21-32) 02/05/22 04:10 BUN 11 mg/dL (7-18) 02/05/22 04:10 Creatinine 1.02 mg/dL (0.70-1.30) 02/05/22 04:10 Est GFR (MDRD) Af Amer > 60 (>60) 02/05/22 04:10 Est GFR (MDRD) Non-Af > 60 (>60) 02/05/22 04:10 Glucose 99 mg/dL (65-99) 02/05/22 04:10 Calcium 8.1 mg/dL (8.5-10.1) L 02/05/22 04:10 Corrected Calcium 9.3 mg/dL (8.5-10.1) 02/05/22 04:10 Magnesium 1.8 mg/dL (2.0-2.9) L 02/05/22 04:10 Total Bilirubin 0.20 mg/dL (0.2-1.0) 02/05/22 04:10 AST 18 Units/L (15-37) 02/05/22 04:10 ALT 8 Units/L (12-78) L 02/05/22 04:10 Alkaline Phosphatase 63 Units/L (46-116) 02/05/22 04:10 Creatine Kinase 228 Units/L (39-308) 02/03/22 18:00 Troponin I High Sens 32.2 ng/L (4.0-60.0) 02/03/22 18:00 Total Protein 6.3 g/dL (6.4-8.2) L 02/05/22 04:10 Albumin 2.5 g/dL (3.4-5.0) L 02/05/22 04:10 Globulin 3.8 g/dL (2.5-4.5) 02/05/22 04:10 Albumin/Globulin Ratio 0.7 Ratio (1.1-2.1) L 02/05/22 04:10 - Assessment and Plan 2: recurrent RT pneumothorax .. s/p placement chest tube . Pt needs surgery for the recurrent pneumothorax .
--- NOTE | 2022-02-05 14:10 | PCM.PROG ---
Progress Note Progress Note for Day of Date of Exam: 02/05/22 Subjective Subjective: The patient is resting comfortably this morning. Chest tube is in place and working well. There is only 10% of the right apical pneumothorax that is remaining. He is noted to have some hypomagnesemia this morning which we will correct. He is mildly anemic still with his hemoglobin dropping to 10.6 from 11. He has no new complaints today and reports he rested well last night. He does not complain of any dyspnea at this time. Continue current treatment with chest tube and recheck portable chest x-ray in the morning. Past Medical Family Social History Past Med/Fam/Surg Hx: No changes since H&P Allergies: Allergies No Known Drug Allergies Allergy (Verified 04/28/19 08:16) Review of Systems ROS: No change since H&P Vital Signs and I&O's Vital Signs: Temperature 98.8 F Pulse Rate [Brachial] 82 Pulse Rate 77 Respiratory Rate 20 Blood Pressure [Left Arm] 126/72 Blood Pressure 179/96 O2 Sat by Pulse Oximetry 98 Intake and Output: Intake & Output 02/03/22 02/04/22 02/05/22 02/06/22 11:59 11:59 11:59 11:59 Intake Total 1175 / 1175 1480 / 1480 Output Total 893 / 893 2450 / 2450 Balance 282 / 282 -970 / -970 Physical Exam Oriented: Normal, Time, Person and Place Eyes: Normal Ear: Normal Nose: Normal Throat: Normal Respiratory: Normal and Right Cardiovascular: Normal Tenderness: Normal Skin: Normal Musculoskeletal: Normal Psychiatric: Normal Mood Description: Calm Affect: Normal Speech Pattern: Clear and Appropriate Laboratory and Diagnostics Result Diagrams: 02/05/22 04:10 02/05/22 04:10 Labs: Laboratory WBC 3.4 X10^3/uL (3.6-10.0) L 02/05/22 04:10 RBC 3.81 X10^6/uL (4.7-6.0) L 02/05/22 04:10 Hgb 10.6 g/dL (13.5-18.0) L 02/05/22 04:10 Hct 32.5 % (42.0-54.0) L 02/05/22 04:10 MCV 85.2 fL (80.0-100.0) 02/05/22 04:10 MCH 27.8 pg (27.0-34.0) 02/05/22 04:10 MCHC 32.7 g/dL (33.0-35.0) L 02/05/22 04:10 RDW 15.1 % (11.6-16.5) 02/05/22 04:10 Plt Count 212 X10^3/uL (150.0-450.0) 02/05/22 04:10 MPV 9.1 fL (7.4-11.0) 02/05/22 04:10 Neut % (Auto) 54.3 % (42.0-75.0) 02/05/22 04:10 Lymph % (Auto) 25.5 % (21.0-51.0) 02/05/22 04:10 [place] % (Auto) 12.3 % (0.0-13.0) 02/05/22 04:10 Eos % (Auto) 6.6 % (0.9-2.9) H 02/05/22 04:10 Baso % (Auto) 1.3 % (0.2-1.0) H 02/05/22 04:10 Neut # (Auto) 1.9 x10^3/uL (2.2-4.8) L 02/05/22 04:10 Lymph # (Auto) 0.9 X10^3/uL (1.3-2.9) L 02/05/22 04:10 [place] # (Auto) 0.4 x10^3/uL (0.3-0.8) 02/05/22 04:10 Eos # (Auto) 0.2 x10^3/uL (0.0-0.2) 02/05/22 04:10 Baso # (Auto) 0.0 X10^3/uL (0.0-0.1) 02/05/22 04:10 Absolute Nucleated RBC 0.2 /100WBC 02/05/22 04:10 D-Dimer 1.16 ug/ml (0.0-0.57) H 02/03/22 18:00 Sodium 138 mmol/L (136-145) 02/05/22 04:10 Corrected Sodium TNP 02/05/22 04:10 Potassium 3.9 mmol/L (3.5-5.1) 02/05/22 04:10 Chloride 103 mmol/L (98-107) 02/05/22 04:10 Carbon Dioxide 29.0 mmol/L (21-32) 02/05/22 04:10 BUN 11 mg/dL (7-18) 02/05/22 04:10 Creatinine 1.02 mg/dL (0.70-1.30) 02/05/22 04:10 Est GFR (MDRD) Af Amer > 60 (>60) 02/05/22 04:10 Est GFR (MDRD) Non-Af > 60 (>60) 02/05/22 04:10 Glucose 99 mg/dL (65-99) 02/05/22 04:10 Calcium 8.1 mg/dL (8.5-10.1) L 02/05/22 04:10 Corrected Calcium 9.3 mg/dL (8.5-10.1) 02/05/22 04:10 Magnesium 1.8 mg/dL (2.0-2.9) L 02/05/22 04:10 Total Bilirubin 0.20 mg/dL (0.2-1.0) 02/05/22 04:10 AST 18 Units/L (15-37) 02/05/22 04:10 ALT 8 Units/L (12-78) L 02/05/22 04:10 Alkaline Phosphatase 63 Units/L (46-116) 02/05/22 04:10 Creatine Kinase 228 Units/L (39-308) 02/03/22 18:00 Troponin I High Sens 32.2 ng/L (4.0-60.0) 02/03/22 18:00 Total Protein 6.3 g/dL (6.4-8.2) L 02/05/22 04:10 Albumin 2.5 g/dL (3.4-5.0) L 02/05/22 04:10 Globulin 3.8 g/dL (2.5-4.5) 02/05/22 04:10 Albumin/Globulin Ratio 0.7 Ratio (1.1-2.1) L 02/05/22 04:10 Radiology Reviewed: Yes Plan (1) Tension pneumothorax: Status: Acute Narrative Support Text: 10% of right apex still with pneumothorax. Plan: Continue with chest tube at this time. (2) HTN (hypertension): Status: Chronic Qualifiers: Hypertension type: primary hypertension Qualified Code(s): I10 - Essential (primary) hypertension Narrative Support Text: Blood pressure stable. Plan: Monitor patient's blood pressure and continue him on his antihypertensives. (3) CHF (congestive heart failure): Status: Chronic Qualifiers: Heart failure chronicity: acute on chronic (4) Shortness of breath: Status: Resolved Plan: Continue with chest tube and supplemental oxygen. (5) Hypokalemia: Status: Resolved Plan: Potassium replacement protocol. (6) Hypomagnesemia: Status: Acute Plan: Replace with magnesium.
[2022-02-05] MEDS: LIPITOR TAB 40 MG PO SCH (20:18)
[2022-02-05] MEDS: DILAUDID INJ IVP PRN (20:20)
[2022-02-06] MEDS: ANCEF VIAL 1 GRAM IVP SCH ×2 (05:08→21:51)
[2022-02-06] MEDS: DILAUDID INJ IVP PRN ×2 (05:08→21:59)
[2022-02-06 05:22] LABS: BASOPHILS # (AUTO) 0.1 X10^3/uL (0.0-0.1); BASOPHILS % (AUTO) 1.3 % (0.2-1.0); EOSINOPHILS # (AUTO) 0.3 x10^3/uL (0.0-0.2); EOSINOPHILS % (AUTO) 6.4 % (0.9-2.9); HEMATOCRIT 32.9 % (42.0-54.0); HEMOGLOBIN 10.9 g/dL (13.5-18.0); LYMPHOCYTES # (AUTO) 0.8 X10^3/uL (1.3-2.9); LYMPHOCYTES % (AUTO) 18.7 % (21.0-51.0); MEAN CORPUSCULAR HEMOGLOBIN 28.1 pg (27.0-34.0); MEAN CORPUSCULAR HGB CONC 33.2 g/dL (33.0-35.0); MEAN CORPUSCULAR VOLUME 84.5 fL (80.0-100.0); MEAN PLATELET VOLUME 9.2 fL (7.4-11.0); MONOCYTES # (AUTO) 0.6 x10^3/uL (0.3-0.8); MONOCYTES % (AUTO) 14.8 % (0.0-13.0); NEUTROPHILS # (AUTO) 2.4 x10^3/uL (2.2-4.8); NEUTROPHILS % (AUTO) 58.8 % (42.0-75.0); RED BLOOD COUNT 3.89 X10^6/uL (4.7-6.0); RED CELL DISTRIBUTION WIDTH 14.9 % (11.6-16.5)
[2022-02-06 05:29] LABS: ALANINE AMINOTRANSFERASE 8 Units/L (12-78); ALBUMIN 2.5 g/dL (3.4-5.0); ALKALINE PHOSPHATASE 62 Units/L (46-116); ASPARTATE AMINO TRANSFERASE 16 Units/L (15-37); BLOOD UREA NITROGEN 11 mg/dL (7-18); CALCIUM 7.8 mg/dL (8.5-10.1); CARBON DIOXIDE 30.8 mmol/L (21-32); CHLORIDE 101 mmol/L (98-107); CREATININE 1.11 mg/dL (0.70-1.30); MAGNESIUM 1.7 mg/dL (2.0-2.9); SODIUM 136 mmol/L (136-145); TOTAL PROTEIN 6.3 g/dL (6.4-8.2); eGFR NON BLACK RACES > 60 (>60)
[2022-02-06] MEDS: MAGNESIUM SULFATE 1 GRAM/100 mL PREMIX 1 GM/100 ML BAG IV PRN ×2 (05:52→09:21)
[2022-02-06] MEDS ORDERED: PREVNAR 13 SYRINGE IM ONE ×2 (08:58→12:39)
[2022-02-06] MEDS: ALDACTONE TAB 25 MG PO SCH (09:22)
[2022-02-06] MEDS: ZYLOPRIM PO SCH (09:22)
[2022-02-06] MEDS: LOVENOX INJ 40 MG SYR SC SCH (09:22)
[2022-02-06] MEDS: LYRICA CAP 75 mg PO SCH ×2 (09:23→21:51)
[2022-02-06] MEDS: COZAAR PO SCH (09:23)
[2022-02-06] MEDS: COREG TAB 12.5 MG PO SCH ×2 (09:24→21:48)
--- NOTE | 2022-02-06 13:06 | PCM.DCPLAN ---
DISCHARGE SUMMARY Admission Date Date of Admission: 02/03/22 Discharge Date Discharge Date: 02/06/22 Admission Diagnoses (1) Tension pneumothorax: Status: Acute (2) HTN (hypertension): Status: Chronic (3) CHF (congestive heart failure): Status: Chronic (4) Shortness of breath: Status: Resolved (5) Hypokalemia: Status: Resolved (6) Hypomagnesemia: Status: Acute Discharge Medications Discharge Medications: Home Medication List albuterol sulfate 90 mcg/actuation aerosol inhaler 2 puff inhalation Q4HR 02/03/22 [History] Prescriptions: Hospital Course Vital Signs: Temperature 98.2 F Pulse Rate [Brachial] 66 Pulse Rate 77 Respiratory Rate 20 Blood Pressure [Left Arm] 107/62 Blood Pressure 179/96 O2 Sat by Pulse Oximetry 96 Latest Lab Results: Laboratory Last Values WBC 4.0 X10^3/uL (3.6-10.0) 02/06/22 04:25 RBC 3.89 X10^6/uL (4.7-6.0) L 02/06/22 04:25 Hgb 10.9 g/dL (13.5-18.0) L 02/06/22 04:25 Hct 32.9 % (42.0-54.0) L 02/06/22 04:25 MCV 84.5 fL (80.0-100.0) 02/06/22 04:25 MCH 28.1 pg (27.0-34.0) 02/06/22 04:25 MCHC 33.2 g/dL (33.0-35.0) 02/06/22 04:25 RDW 14.9 % (11.6-16.5) 02/06/22 04:25 Plt Count 191 X10^3/uL (150.0-450.0) 02/06/22 04:25 MPV 9.2 fL (7.4-11.0) 02/06/22 04:25 Neut % (Auto) 58.8 % (42.0-75.0) 02/06/22 04:25 Lymph % (Auto) 18.7 % (21.0-51.0) L 02/06/22 04:25 [place] % (Auto) 14.8 % (0.0-13.0) H 02/06/22 04:25 Eos % (Auto) 6.4 % (0.9-2.9) H 02/06/22 04:25 Baso % (Auto) 1.3 % (0.2-1.0) H 02/06/22 04:25 Neut # (Auto) 2.4 x10^3/uL (2.2-4.8) 02/06/22 04:25 Lymph # (Auto) 0.8 X10^3/uL (1.3-2.9) L 02/06/22 04:25 [place] # (Auto) 0.6 x10^3/uL (0.3-0.8) 02/06/22 04:25 Eos # (Auto) 0.3 x10^3/uL (0.0-0.2) H 02/06/22 04:25 Baso # (Auto) 0.1 X10^3/uL (0.0-0.1) 02/06/22 04:25 Absolute Nucleated RBC 0.1 /100WBC 02/06/22 04:25 D-Dimer 1.16 ug/ml (0.0-0.57) H 02/03/22 18:00 Sodium 136 mmol/L (136-145) 02/06/22 04:25 Corrected Sodium TNP 02/06/22 04:25 Potassium 3.8 mmol/L (3.5-5.1) 02/06/22 04:25 Chloride 101 mmol/L (98-107) 02/06/22 04:25 Carbon Dioxide 30.8 mmol/L (21-32) 02/06/22 04:25 BUN 11 mg/dL (7-18) 02/06/22 04:25 Creatinine 1.11 mg/dL (0.70-1.30) 02/06/22 04:25 Est GFR (MDRD) Af Amer > 60 (>60) 02/06/22 04:25 Est GFR (MDRD) Non-Af > 60 (>60) 02/06/22 04:25 Glucose 89 mg/dL (65-99) 02/06/22 04:25 Calcium 7.8 mg/dL (8.5-10.1) L 02/06/22 04:25 Corrected Calcium 9.0 mg/dL (8.5-10.1) 02/06/22 04:25 Magnesium 1.7 mg/dL (2.0-2.9) L 02/06/22 04:25 Total Bilirubin 0.20 mg/dL (0.2-1.0) 02/06/22 04:25 AST 16 Units/L (15-37) 02/06/22 04:25 ALT 8 Units/L (12-78) L 02/06/22 04:25 Alkaline Phosphatase 62 Units/L (46-116) 02/06/22 04:25 Creatine Kinase 228 Units/L (39-308) 02/03/22 18:00 Troponin I High Sens 32.2 ng/L (4.0-60.0) 02/03/22 18:00 Total Protein 6.3 g/dL (6.4-8.2) L 02/06/22 04:25 Albumin 2.5 g/dL (3.4-5.0) L 02/06/22 04:25 Globulin 3.8 g/dL (2.5-4.5) 02/06/22 04:25 Albumin/Globulin Ratio 0.7 Ratio (1.1-2.1) L 02/06/22 04:25 Hospital Course: This is a pleasant 66-year-old black male who presented to the emergency department yesterday with acute shortness of breath and chest pain. He reported this happened when he was cooking lunch yesterday around noon. Work-up in the emergency department revealed that he had a 80% tension pneumothorax on the right side and this is a second time that the patient has had a right-sided spontaneous pneumothorax. Our general surgeon, Dr. Solorzano has placed a chest tube and the patient's lung has re-expanded with a 5 to 10% pneumothorax remaining. The following day he was an increase in the size of the pneumothorax 10 to 20% were helped by the next day he was back down to approximately 10% of the right apex that remained. During the next few days patient feeling better and he had no complaints. Our general surgeon recommended that we transfer the patient to cardiovascular thoracic surgery they can do a procedure on him to help prevent further spontaneous pneumothorax in the future. I called and discussed case with cardiovascular thoracic surgeon, Dr. Vincent Amaro in [place], [place] and he has agreed to take the patient. We will be transferring the patient in stable condition and he can follow-up with his me or you either his primary care provider in [place], [place] upon his return.
--- NOTE | 2022-02-06 15:18 | DR.PROGNOT ---
Hospital Progress Notes - Progress Note for Day of: Progress Note Date: 02/06/22 - Chief Complaint Chief Complaint: moderate RT chest pain ,, no SOB . chest X Ray stil showing about 5 to 10 pneumothorax. comfortable , no acute distress - Past Medical Family Social History Past Med/Fam/Surg Hx: No changes since H&P Allergies: Allergies No Known Drug Allergies Allergy (Verified 04/28/19 08:16) - Review Of Systems ROS: No change since H&P - Vital Signs Vital Signs: Temperature 98.2 F Pulse Rate [Brachial] 66 Pulse Rate 77 Respiratory Rate 20 Blood Pressure [Left Arm] 107/62 Blood Pressure 179/96 O2 Sat by Pulse Oximetry 96 - Physical Exam Oriented: Normal, Time, Person, Place Eyes: Normal Ear: Normal Nose: Normal Throat: Normal Respiratory: Normal, Right Cardiovascular: Normal GI:Palpation: Normal GI: Tenderness: Normal Skin: Normal Musculoskeletal: Normal Psychiatric: Normal Mood Description: Calm Affect: Normal Speech Pattern: Clear, Appropriate - Laboratory and Diagnostics Result Diagrams: 02/06/22 04:25 02/06/22 04:25 Labs: Laboratory WBC 4.0 X10^3/uL (3.6-10.0) 02/06/22 04:25 RBC 3.89 X10^6/uL (4.7-6.0) L 02/06/22 04:25 Hgb 10.9 g/dL (13.5-18.0) L 02/06/22 04:25 Hct 32.9 % (42.0-54.0) L 02/06/22 04:25 MCV 84.5 fL (80.0-100.0) 02/06/22 04:25 MCH 28.1 pg (27.0-34.0) 02/06/22 04:25 MCHC 33.2 g/dL (33.0-35.0) 02/06/22 04:25 RDW 14.9 % (11.6-16.5) 02/06/22 04:25 Plt Count 191 X10^3/uL (150.0-450.0) 02/06/22 04:25 MPV 9.2 fL (7.4-11.0) 02/06/22 04:25 Neut % (Auto) 58.8 % (42.0-75.0) 02/06/22 04:25 Lymph % (Auto) 18.7 % (21.0-51.0) L 02/06/22 04:25 [place] % (Auto) 14.8 % (0.0-13.0) H 02/06/22 04:25 Eos % (Auto) 6.4 % (0.9-2.9) H 02/06/22 04:25 Baso % (Auto) 1.3 % (0.2-1.0) H 02/06/22 04:25 Neut # (Auto) 2.4 x10^3/uL (2.2-4.8) 02/06/22 04:25 Lymph # (Auto) 0.8 X10^3/uL (1.3-2.9) L 02/06/22 04:25 [place] # (Auto) 0.6 x10^3/uL (0.3-0.8) 02/06/22 04:25 Eos # (Auto) 0.3 x10^3/uL (0.0-0.2) H 02/06/22 04:25 Baso # (Auto) 0.1 X10^3/uL (0.0-0.1) 02/06/22 04:25 Absolute Nucleated RBC 0.1 /100WBC 02/06/22 04:25 D-Dimer 1.16 ug/ml (0.0-0.57) H 02/03/22 18:00 Sodium 136 mmol/L (136-145) 02/06/22 04:25 Corrected Sodium TNP 02/06/22 04:25 Potassium 3.8 mmol/L (3.5-5.1) 02/06/22 04:25 Chloride 101 mmol/L (98-107) 02/06/22 04:25 Carbon Dioxide 30.8 mmol/L (21-32) 02/06/22 04:25 BUN 11 mg/dL (7-18) 02/06/22 04:25 Creatinine 1.11 mg/dL (0.70-1.30) 02/06/22 04:25 Est GFR (MDRD) Af Amer > 60 (>60) 02/06/22 04:25 Est GFR (MDRD) Non-Af > 60 (>60) 02/06/22 04:25 Glucose 89 mg/dL (65-99) 02/06/22 04:25 Calcium 7.8 mg/dL (8.5-10.1) L 02/06/22 04:25 Corrected Calcium 9.0 mg/dL (8.5-10.1) 02/06/22 04:25 Magnesium 1.7 mg/dL (2.0-2.9) L 02/06/22 04:25 Total Bilirubin 0.20 mg/dL (0.2-1.0) 02/06/22 04:25 AST 16 Units/L (15-37) 02/06/22 04:25 ALT 8 Units/L (12-78) L 02/06/22 04:25 Alkaline Phosphatase 62 Units/L (46-116) 02/06/22 04:25 Creatine Kinase 228 Units/L (39-308) 02/03/22 18:00 Troponin I High Sens 32.2 ng/L (4.0-60.0) 02/03/22 18:00 Total Protein 6.3 g/dL (6.4-8.2) L 02/06/22 04:25 Albumin 2.5 g/dL (3.4-5.0) L 02/06/22 04:25 Globulin 3.8 g/dL (2.5-4.5) 02/06/22 04:25 Albumin/Globulin Ratio 0.7 Ratio (1.1-2.1) L 02/06/22 04:25 - Assessment and Plan 2: recurrent RT pneumothorax .. s/p placement chest tube . Pt needs surgery for the recurrent pneumothorax . to be transferred when bed is available ..
[2022-02-06] MEDS: NS 1,000 ML IV 1,000 ML IV SCH ×2 (15:25→21:48)
--- NOTE | 2022-02-06 15:41 | RAD ---
HISTORYFOLLOW UP RIGHT TENSION PTXSTUDYCHEST x-ray, 1 VIEWCOMPARISONX-ray 02/05/2022FINDINGSRight-sided chest tube is unchanged in position. There is improvement of the right-sided pneumothorax but persistent right basilar pneumothorax is seen with likely at least 20 percent volume loss. There is slight mediastinal shift to the right without evidence of tension pneumothorax. Heart is normal in size.IMPRESSIONLikely improving right sided pneumothorax but at least 20 percent collapse persists.Electronically signed by: Jose Bonilla (Feb 06, 2022 15:38:39)
[2022-02-06] MEDS: LASIX PO SCH (21:50)
[2022-02-06] MEDS: LIPITOR TAB 40 MG PO SCH (21:50)
[2022-02-07] MEDS: NS 1,000 ML IV 1,000 ML IV SCH (04:35)
[2022-02-07 04:53] LABS: BASOPHILS % (AUTO) 0.8 % (0.2-1.0); EOSINOPHILS # (AUTO) 0.2 x10^3/uL (0.0-0.2); EOSINOPHILS % (AUTO) 6.2 % (0.9-2.9); HEMATOCRIT 31.6 % (42.0-54.0); HEMOGLOBIN 10.4 g/dL (13.5-18.0); LYMPHOCYTES # (AUTO) 0.8 X10^3/uL (1.3-2.9); LYMPHOCYTES % (AUTO) 20.5 % (21.0-51.0); MEAN CORPUSCULAR HEMOGLOBIN 27.8 pg (27.0-34.0); MEAN CORPUSCULAR HGB CONC 32.9 g/dL (33.0-35.0); MEAN CORPUSCULAR VOLUME 84.5 fL (80.0-100.0); MEAN PLATELET VOLUME 8.9 fL (7.4-11.0); MONOCYTES # (AUTO) 0.5 x10^3/uL (0.3-0.8); NEUTROPHILS # (AUTO) 2.3 x10^3/uL (2.2-4.8); NEUTROPHILS % (AUTO) 59.5 % (42.0-75.0); RED BLOOD COUNT 3.74 X10^6/uL (4.7-6.0); WHITE BLOOD COUNT 3.8 X10^3/uL (3.6-10.0)
[2022-02-07 05:07] LABS: ALANINE AMINOTRANSFERASE 9 Units/L (12-78); ALBUMIN 2.3 g/dL (3.4-5.0); ALKALINE PHOSPHATASE 62 Units/L (46-116); ASPARTATE AMINO TRANSFERASE 16 Units/L (15-37); BLOOD UREA NITROGEN 13 mg/dL (7-18); CALCIUM 7.8 mg/dL (8.5-10.1); CARBON DIOXIDE 29.3 mmol/L (21-32); CHLORIDE 102 mmol/L (98-107); COR CA(FOR HYPOALB) 9.2 mg/dL (8.5-10.1); CREATININE 1.26 mg/dL (0.70-1.30); MAGNESIUM 1.8 mg/dL (2.0-2.9); SODIUM 137 mmol/L (136-145); TOTAL PROTEIN 6.2 g/dL (6.4-8.2); eGFR NON BLACK RACES > 60 (>60)
[2022-02-07] MEDS: MAGNESIUM SULFATE 1 GRAM/100 mL PREMIX 1 GM/100 ML BAG IV PRN (05:20)
[2022-02-07] MEDS: ANCEF VIAL 1 GRAM IVP SCH (05:22)
[2022-02-07 08:31] VITALS: BP 118/66
[2022-02-07] MEDS: COREG TAB 12.5 MG PO SCH (08:36)
[2022-02-07] MEDS: COZAAR PO SCH (08:37)
[2022-02-07] MEDS: LYRICA CAP 75 mg PO SCH (08:37)
[2022-02-07] MEDS: ALDACTONE TAB 25 MG PO SCH (08:37)
[2022-02-07] MEDS: LASIX PO SCH (08:38)
[2022-02-07] MEDS: ZYLOPRIM PO SCH (08:38)
[2022-02-07] MEDS: LOVENOX INJ 40 MG SYR SC SCH (08:39)
== END 2022-02-07 09:05 | disposition short-term general hospital (02) | DRG 200 ==
LOC: ER 17:32 → MED/SURG 21:35
PROVIDERS: ADMIT Family Medicine; ATTEND Family Medicine
DX: E83.42 Hypomagnesemia; J98.11 Atelectasis; I11.0 Hypertensive heart disease with heart failure; R94.31 Abnormal electrocardiogram [ECG] [EKG]; E78.2 Mixed hyperlipidemia; J93.0 Spontaneous tension pneumothorax; R07.89 Other chest pain; I50.9 Heart failure, unspecified; E87.6 Hypokalemia; R06.02 Shortness of breath